=== PATIENT | female | born 1950 | race Caucasian/White ===

== ENCOUNTER 2019-12-25 10:22 | Outpatient (REF) | payer MEDICARE, SELFPAY ==
[2019-12-25 13:55] LABS: MANUAL DIFF FLAG NO
[2019-12-25 14:00] LABS: Basophils Percent Auto 0.5 % (0-2); Eosinophils Absolute Auto 0.3 X10*3/uL (0.0-0.4); Eosinophils Percent Auto 4.2 % (0-4); Hematocrit 40.4 % (37-47); Hemoglobin 13.1 g/dl (12.0-16.0); Imm Gran Abs Auto 0.03 X10*3/uL (0.00-0.03); Imm Gran Pct Auto 0.4 % (0.0-0.4); Lymphocytes Absolute Auto 2.2 X10*3/uL (1.2-4.9); Mean Corpuscular HGB Conc 32.4 g/dl (31.0-35.0); Mean Corpuscular Hemoglobin 26.6 pg (27.0-33.0); Mean Corpuscular Volume 82.1 fL (80-98); Monocytes Absolute Auto 0.6 X10*3/uL (0.1-1.2); Monocytes Percent Auto 7.3 % (2-11); Neutrophils Percent Auto 60.6 % (45-73); Platelet Count 256 X10*3/uL (160-400); Red Blood Count 4.92 X10*6/uL (4.20-5.50); Red Cell Distribution Width 13.8 % (11.0-16.0); White Blood Count 8.2 X10*3/uL (4.8-10.8)
[2019-12-25 14:18] LABS: Glucose Urine UA NEG (NEG); Leukocyte Esterase Urine 1+ (NEG); Nitrite Urine NEG (NEG); Specific Gravity - Urine 1.015 (1.005-1.025); Urine Blood 2+ (NEG); Urine Ketones NEG (NEG); Urine Protein NEG (NEG-TRACE)
[2019-12-25 14:20] LABS: Appearance Urine CLEAR; Color Urine YELLOW
[2019-12-25 14:30] LABS: Squamous Epithelial Cell Urine TRACE /LPF
[2019-12-25 14:36] LABS: Anion Gap 16 (12-20); Blood Urea Nitrogen 13 mg/dL (9-16); Carbon Dioxide 30 mmol/L (22-29); Chloride 100 mmol/L (96-108); Estimated Glomerular Filt Rate 59; Potassium 4.4 mmol/l (3.3-5.1); Sodium 142 mmol/L (135-145)
[2019-12-25 14:37] LABS: Alanine Aminotransferase 28 U/L (0-31); Albumin Level 4.3 g/dL (3.5-5.0); Alkaline Phosphatase 64 U/L (39-117); Aspartate Amino Transferase 25 U/L (5-31); Bilirubin Total 0.6 mg/dL (0.0-1.0); Calcium 9.7 mg/dL (8.4-10.2); Cholesterol 135 mg/dL; Glucose Fasting 104 mg/dL (60-99); HDL Cholesterol 28 mg/dL; LDL Cholesterol Calculated 68 mg/dl; Total Protein 7.2 g/dL (6.5-8.0); Triglycerides 199 mg/dL
[2019-12-25 14:46] LABS: TSH reflex Free T4 1.72 mIU/mL (0.32-4.0); Vitamin D 25-OH Total 63.3 ng/mL (>30)
[2019-12-25 15:12] LABS: Microalbum/Creatinine Ratio Ur 7.2 ug/mg cr
== END 2019-12-25 10:23 | disposition home or self-care (01) ==
LOC: HO.HMGCLDS 10:22
PROVIDERS: PCP Internal Medicine; Visit Provider Internal Medicine
DX: E11.22 Type 2 diabetes mellitus with diabetic chronic kidney disease (principal); I12.9 Hypertensive chronic kidney disease with stage 1 through stage 4 chronic kidney disease, or unspecified chronic kidney disease; N18.2 Chronic kidney disease, stage 2 (mild); E78.00 Pure hypercholesterolemia, unspecified; K21.9 Gastro-esophageal reflux disease without esophagitis; E66.3 Overweight
CPT/HCPCS: 36415; 80053; 80061; 81001; 82043; 82306; 84443; 85025; 87086

== ENCOUNTER 2020-05-20 10:42 | Outpatient (REF) | payer MEDICARE, SELFPAY ==
[2020-05-20 13:59] LABS: MANUAL DIFF FLAG NO
[2020-05-20 14:11] LABS: Basophils Percent Auto 0.4 % (0-2); Eosinophils Absolute Auto 0.2 X10*3/uL (0.0-0.4); Eosinophils Percent Auto 2.9 % (0-4); Hematocrit 41.6 % (37-47); Hemoglobin 13.5 g/dl (12.0-16.0); Imm Gran Abs Auto 0.02 X10*3/uL (0.00-0.03); Imm Gran Pct Auto 0.3 % (0.0-0.4); Lymphocytes Absolute Auto 2.1 X10*3/uL (1.2-4.9); Lymphocytes Percent Auto 27.7 % (20-40); Mean Corpuscular HGB Conc 32.5 g/dl (31.0-35.0); Mean Corpuscular Hemoglobin 26.3 pg (27.0-33.0); Mean Corpuscular Volume 81.1 fL (80-98); Mean Platelet Volume 9.9 fL (9.4-12.3); Monocytes Absolute Auto 0.7 X10*3/uL (0.1-1.2); Monocytes Percent Auto 9.8 % (2-11); Neutrophils Absolute Auto 4.5 X10*3/uL (2.0-8.3); Neutrophils Percent Auto 58.9 % (45-73); Platelet Count 260 X10*3/uL (160-400); Red Blood Count 5.13 X10*6/uL (4.20-5.50); Red Cell Distribution Width 14.5 % (11.0-16.0); White Blood Count 7.6 X10*3/uL (4.8-10.8)
[2020-05-20 14:22] LABS: Alanine Aminotransferase 28 U/L (0-31); Albumin Level 4.5 g/dL (3.5-5.0); Alkaline Phosphatase 62 U/L (39-117); Anion Gap 16 (12-20); Aspartate Amino Transferase 31 U/L (5-31); Bilirubin Total 0.6 mg/dL (0.0-1.0); Blood Urea Nitrogen 13 mg/dL (9-16); Calcium 10.1 mg/dL (8.4-10.2); Carbon Dioxide 28 mmol/L (22-29); Chloride 100 mmol/L (96-108); Cholesterol 135 mg/dL; Estimated Glomerular Filt Rate 59; Glucose Fasting 123 mg/dL (60-99); HDL Cholesterol 31 mg/dL; LDL Cholesterol Calculated 64 mg/dl; Sodium 140 mmol/L (135-145); Total Protein 7.5 g/dL (6.5-8.0); Triglycerides 201 mg/dL
[2020-05-20 14:43] LABS: Glucose Urine UA NEG (NEG); Leukocyte Esterase Urine NEG (NEG); Nitrite Urine NEG (NEG); PH 8.5 (5.0-8.0); Urine Blood NEG (NEG); Urine Ketones NEG (NEG); Urine Protein NEG (NEG-TRACE)
[2020-05-20 14:46] LABS: TSH reflex Free T4 1.22 uIU/mL (0.32-4.0); Vitamin D 25-OH Total 60.5 ng/mL (>30)
[2020-05-20 14:48] LABS: Appearance Urine CLEAR; Color Urine YELLOW
[2020-05-20 14:50] LABS: Creatinine Urine 169.24 mg/dL
== END 2020-05-20 10:43 | disposition home or self-care (01) ==
LOC: HO.LAB 10:42
PROVIDERS: PCP Internal Medicine; Visit Provider Internal Medicine
DX: I12.9 Hypertensive chronic kidney disease with stage 1 through stage 4 chronic kidney disease, or unspecified chronic kidney disease (principal); N18.2 Chronic kidney disease, stage 2 (mild); E11.22 Type 2 diabetes mellitus with diabetic chronic kidney disease; E78.00 Pure hypercholesterolemia, unspecified; E66.3 Overweight; E55.9 Vitamin D deficiency, unspecified; K21.9 Gastro-esophageal reflux disease without esophagitis
CPT/HCPCS: 36415; 80053; 80061; 81003; 82043; 82306; 84443; 85025

== ENCOUNTER 2020-06-14 10:32 | Outpatient (REF) | payer MEDICARE, SELFPAY ==
[2020-06-14 11:54] LABS: Glucose Urine UA NEG (NEG); Leukocyte Esterase Urine 2+ (NEG); Nitrite Urine NEG (NEG); PH 5.5 (5.0-8.0); UACC Culture Trigger YES; Urine Blood 1+ (NEG); Urine Ketones NEG (NEG); Urine Protein NEG (NEG-TRACE)
[2020-06-14 12:23] LABS: Appearance Urine HAZY; Color Urine YELLOW
[2020-06-14 12:48] LABS: Bacteria Urine 1+ /LPF; WBC Urine TNTC /HPF (0-4)
[2020-06-14 12:49] LABS: Creatinine Urine 23.38 mg/dL; Microalbum/Creatinine Ratio Ur 132.5 ug/mg cr
== END 2020-06-14 10:33 | disposition home or self-care (01) ==
LOC: HO.LAB 10:32
PROVIDERS: PCP Internal Medicine; Visit Provider Internal Medicine
DX: I12.9 Hypertensive chronic kidney disease with stage 1 through stage 4 chronic kidney disease, or unspecified chronic kidney disease (principal); N18.2 Chronic kidney disease, stage 2 (mild); E11.22 Type 2 diabetes mellitus with diabetic chronic kidney disease; R30.0 Dysuria
CPT/HCPCS: 81001; 81003; 82043; 87086; 87088; 87186

== ENCOUNTER 2020-09-10 09:13 | Outpatient (REF) | payer MEDICARE, SELFPAY ==
[2020-09-10 11:11] LABS: MANUAL DIFF FLAG NO
[2020-09-10 11:21] LABS: Basophils Percent Auto 0.4 % (0-2); Eosinophils Absolute Auto 0.3 X10*3/uL (0.0-0.4); Eosinophils Percent Auto 4.1 % (0-4); Hematocrit 39.8 % (37-47); Hemoglobin 12.9 g/dl (12.0-16.0); Imm Gran Abs Auto 0.02 X10*3/uL (0.00-0.03); Imm Gran Pct Auto 0.3 % (0.0-0.4); Lymphocytes Absolute Auto 1.5 X10*3/uL (1.2-4.9); Lymphocytes Percent Auto 21.7 % (20-40); Mean Corpuscular HGB Conc 32.4 g/dl (31.0-35.0); Mean Corpuscular Hemoglobin 26.4 pg (27.0-33.0); Mean Corpuscular Volume 81.4 fL (80-98); Mean Platelet Volume 9.8 fL (9.4-12.3); Monocytes Absolute Auto 0.5 X10*3/uL (0.1-1.2); Monocytes Percent Auto 6.9 % (2-11); Neutrophils Absolute Auto 4.7 X10*3/uL (2.0-8.3); Neutrophils Percent Auto 66.6 % (45-73); Platelet Count 224 X10*3/uL (160-400); Red Blood Count 4.89 X10*6/uL (4.20-5.50); Red Cell Distribution Width 14.2 % (11.0-16.0)
[2020-09-10 11:24] LABS: Glucose Urine UA NEG (NEG); Leukocyte Esterase Urine NEG (NEG); Nitrite Urine NEG (NEG); Specific Gravity - Urine 1.015 (1.005-1.025); Urine Blood NEG (NEG); Urine Ketones NEG (NEG); Urine Protein NEG (NEG-TRACE)
[2020-09-10 11:29] LABS: Estimated Average Glucose 143 mg/dL; Hemoglobin A1c % 6.6 %
[2020-09-10 11:32] LABS: Appearance Urine CLEAR; Color Urine YELLOW
[2020-09-10 11:52] LABS: Alanine Aminotransferase 22 U/L (0-31); Albumin Level 4.3 g/dL (3.5-5.0); Alkaline Phosphatase 64 U/L (39-117); Anion Gap 15 (12-20); Aspartate Amino Transferase 25 U/L (5-31); Bilirubin Total 0.7 mg/dL (0.0-1.0); Blood Urea Nitrogen 15 mg/dL (9-16); Carbon Dioxide 27 mmol/L (22-29); Chloride 102 mmol/L (96-108); Cholesterol 142 mg/dL; Estimated Glomerular Filt Rate 59; Glucose Fasting 92 mg/dL (60-99); HDL Cholesterol 27 mg/dL; LDL Cholesterol Calculated 81 mg/dl; Potassium 4.1 mmol/L (3.3-5.1); Sodium 140 mmol/L (135-145); Triglycerides 170 mg/dL
[2020-09-10 12:12] LABS: Erythrocyte Sedimentation Rate 11 MM/HR (0-20); TSH reflex Free T4 1.89 uIU/mL (0.32-4.0); Vitamin D 25-OH Total 70.4 ng/mL (>30)
== END 2020-09-10 09:14 | disposition home or self-care (01) ==
LOC: HO.HMGCLDS 09:13
PROVIDERS: PCP Internal Medicine; Visit Provider Internal Medicine
DX: I12.9 Hypertensive chronic kidney disease with stage 1 through stage 4 chronic kidney disease, or unspecified chronic kidney disease (principal); N18.2 Chronic kidney disease, stage 2 (mild); E11.22 Type 2 diabetes mellitus with diabetic chronic kidney disease; K21.9 Gastro-esophageal reflux disease without esophagitis; E66.3 Overweight; E78.00 Pure hypercholesterolemia, unspecified; M51.36 Other intervertebral disc degeneration, lumbar region; E55.9 Vitamin D deficiency, unspecified
CPT/HCPCS: 36415; 80053; 80061; 81003; 82306; 83036; 84443; 85025; 85652

== ENCOUNTER 2021-01-10 09:36 | Outpatient (REF) | payer MEDICARE, SELFPAY ==
[2021-01-10 11:22] LABS: MANUAL DIFF FLAG NO
[2021-01-10 11:56] LABS: Basophils Percent Auto 0.4 % (0-2); Eosinophils Absolute Auto 0.3 X10*3/uL (0.0-0.4); Eosinophils Percent Auto 3.9 % (0-4); Hematocrit 41.4 % (37.0-47.0); Hemoglobin 13.4 g/dl (12.0-16.0); Imm Gran Abs Auto 0.03 X10*3/uL (0.00-0.03); Imm Gran Pct Auto 0.4 % (0.0-0.4); Lymphocytes Absolute Auto 1.7 X10*3/uL (1.2-4.9); Lymphocytes Percent Auto 23.9 % (20-40); Mean Corpuscular HGB Conc 32.4 g/dl (31.0-35.0); Mean Corpuscular Hemoglobin 26.4 pg (27.0-33.0); Mean Corpuscular Volume 81.5 fL (80.0-98.0); Mean Platelet Volume 9.9 fL (9.4-12.3); Monocytes Absolute Auto 0.5 X10*3/uL (0.1-1.2); Monocytes Percent Auto 6.8 % (2-11); Neutrophils Absolute Auto 4.7 x10*3/uL (2.0-8.3); Neutrophils Percent Auto 64.6 % (45-73); Platelet Count 247 X10*3/uL (160-400); Red Blood Count 5.08 X10*6/uL (4.20-5.50); Red Cell Distribution Width 13.7 % (11.0-16.0); White Blood Count 7.2 X10*3/uL (4.8-10.8)
[2021-01-10 12:01] LABS: Appearance Urine CLEAR; Color Urine YELLOW; Glucose Urine UA NEG (NEG); Leukocyte Esterase Urine NEG (NEG); Nitrite Urine NEG (NEG); Urine Blood NEG (NEG); Urine Ketones NEG (NEG); Urine Protein NEG (NEG-TRACE)
[2021-01-10 12:19] LABS: Alanine Aminotransferase 28 U/L (0-31); Albumin Level 4.3 g/dL (3.5-5.0); Alkaline Phosphatase 59 U/L (39-117); Anion Gap 14 (12-20); Aspartate Amino Transferase 23 U/L (5-31); Bilirubin Total 0.6 mg/dL (0.0-1.0); Blood Urea Nitrogen 14 mg/dL (9-16); Calcium 10.2 mg/dL (8.4-10.2); Carbon Dioxide 28 mmol/L (22-29); Chloride 102 mmol/L (96-108); Cholesterol 148 mg/dL; Estimated Glomerular Filt Rate 59; Glucose Fasting 163 mg/dL (60-99); HDL Cholesterol 28 mg/dL; LDL Cholesterol Calculated 79 mg/dl; Potassium 4.5 mmol/L (3.3-5.1); Sodium 139 mmol/L (135-145); Triglycerides 208 mg/dL
[2021-01-10 12:22] LABS: TSH reflex Free T4 1.21 uIU/mL (0.32-4.0); Vitamin D 25-OH Total 64.8 ng/mL (>30)
[2021-01-10 12:32] LABS: Creatinine Urine 187.99 mg/dL; Microalbum/Creatinine Ratio Ur 8.5 ug/mg cr
[2021-01-10 12:54] LABS: Estimated Average Glucose 160 mg/dL; Hemoglobin A1c % 7.2 %
== END 2021-01-10 09:37 | disposition home or self-care (01) ==
LOC: HO.HMGCLDS 09:36
PROVIDERS: Visit Provider Internal Medicine
DX: E78.00 Pure hypercholesterolemia, unspecified (principal); E11.9 Type 2 diabetes mellitus without complications; E55.9 Vitamin D deficiency, unspecified; I10 Essential (primary) hypertension
CPT/HCPCS: 36415; 80053; 80061; 81003; 82043; 82306; 83036; 84443; 85025

== ENCOUNTER 2021-05-19 10:13 | Outpatient (REF) | payer MEDICARE, SELFPAY ==
[2021-05-19 11:21] LABS: MANUAL DIFF FLAG NO
[2021-05-19 11:34] LABS: Appearance Urine CLEAR; Color Urine YELLOW; Glucose Urine UA NEG (NEG); Leukocyte Esterase Urine NEG (NEG); Nitrite Urine NEG (NEG); PH 8.5 (5.0-8.0); Specific Gravity - Urine 1.015 (1.005-1.025); Urine Blood NEG (NEG); Urine Ketones NEG (NEG); Urine Protein NEG (NEG-TRACE)
[2021-05-19 11:42] LABS: Estimated Average Glucose 146 mg/dL; Hemoglobin A1c % 6.7 %
[2021-05-19 11:50] LABS: Alanine Aminotransferase 21 U/L (0-31); Albumin Level 4.3 g/dL (3.5-5.0); Alkaline Phosphatase 55 U/L (39-117); Anion Gap 13 (12-20); Aspartate Amino Transferase 22 U/L (5-31); Bilirubin Total 0.8 mg/dL (0.0-1.0); Blood Urea Nitrogen 14 mg/dL (9-16); Calcium 10.1 mg/dL (8.4-10.2); Carbon Dioxide 28 mmol/L (22-29); Chloride 102 mmol/L (96-108); Cholesterol 151 mg/dL; Estimated Glomerular Filt Rate > 60; Glucose Fasting 114 mg/dL (60-99); HDL Cholesterol 28 mg/dL; LDL Cholesterol Calculated 78 mg/dl; Potassium 4.4 mmol/L (3.3-5.1); Sodium 139 mmol/L (135-145); Total Protein 7.2 g/dL (6.5-8.0); Triglycerides 225 mg/dL
[2021-05-19 11:54] LABS: Basophils Percent Auto 0.6 % (0-2); Eosinophils Absolute Auto 0.2 X10*3/uL (0.0-0.4); Eosinophils Percent Auto 3.3 % (0-4); Hematocrit 40.3 % (37.0-47.0); Hemoglobin 13.2 g/dl (12.0-16.0); Imm Gran Abs Auto 0.02 X10*3/uL (0.00-0.03); Imm Gran Pct Auto 0.3 % (0.0-0.4); Lymphocytes Absolute Auto 1.9 X10*3/uL (1.2-4.9); Lymphocytes Percent Auto 26.5 % (20-40); Mean Corpuscular HGB Conc 32.8 g/dl (31.0-35.0); Mean Corpuscular Hemoglobin 26.5 pg (27.0-33.0); Mean Corpuscular Volume 80.8 fL (80.0-98.0); Mean Platelet Volume 9.7 fL (9.4-12.3); Monocytes Absolute Auto 0.5 X10*3/uL (0.1-1.2); Monocytes Percent Auto 6.4 % (2-11); Neutrophils Absolute Auto 4.4 x10*3/uL (2.0-8.3); Neutrophils Percent Auto 62.9 % (45-73); Platelet Count 254 X10*3/uL (160-400); Red Blood Count 4.99 X10*6/uL (4.20-5.50)
[2021-05-19 12:12] LABS: TSH reflex Free T4 1.21 uIU/mL (0.32-4.0); Vitamin D 25-OH Total 63.6 ng/mL (>30)
[2021-05-19 12:46] LABS: Creatinine Urine 134.63 mg/dL; Microalbum/Creatinine Ratio Ur 5.1 ug/mg cr
== END 2021-05-19 10:14 | disposition home or self-care (01) ==
LOC: HO.HMGCLDS 10:13
PROVIDERS: PCP Internal Medicine; Visit Provider Internal Medicine
DX: E11.9 Type 2 diabetes mellitus without complications (principal); E78.00 Pure hypercholesterolemia, unspecified; I10 Essential (primary) hypertension; E55.9 Vitamin D deficiency, unspecified
CPT/HCPCS: 36415; 80053; 80061; 81003; 82043; 82306; 83036; 84443; 85025

== ENCOUNTER 2021-09-29 08:39 | Outpatient (REF) | payer MEDICARE, SELFPAY ==
[2021-09-29 11:26] LABS: MANUAL DIFF FLAG NO
[2021-09-29 11:33] LABS: Basophils Percent Auto 0.4 % (0-2); Eosinophils Absolute Auto 0.2 X10*3/uL (0.0-0.4); Eosinophils Percent Auto 2.2 % (0-4); Hematocrit 40.3 % (37.0-47.0); Hemoglobin 13.4 g/dl (12.0-16.0); Imm Gran Abs Auto 0.02 X10*3/uL (0.00-0.03); Imm Gran Pct Auto 0.3 % (0.0-0.4); Lymphocytes Absolute Auto 1.7 X10*3/uL (1.2-4.9); Lymphocytes Percent Auto 22.8 % (20-40); Mean Corpuscular HGB Conc 33.3 g/dl (31.0-35.0); Mean Corpuscular Hemoglobin 27.2 pg (27.0-33.0); Mean Corpuscular Volume 81.7 fL (80.0-98.0); Mean Platelet Volume 9.5 fL (9.4-12.3); Monocytes Absolute Auto 0.5 X10*3/uL (0.1-1.2); Neutrophils Absolute Auto 4.9 x10*3/uL (2.0-8.3); Neutrophils Percent Auto 67.3 % (45-73); Platelet Count 313 X10*3/uL (160-400); Red Blood Count 4.93 X10*6/uL (4.20-5.50); Red Cell Distribution Width 13.7 % (11.0-16.0); White Blood Count 7.3 X10*3/uL (4.8-10.8)
[2021-09-29 11:37] LABS: Estimated Average Glucose 123 mg/dL; Hemoglobin A1C 144.9691 umol/L; Hemoglobin A1c % 5.9 %
[2021-09-29 12:00] LABS: Alanine Aminotransferase 18 U/L (0-31); Albumin Level 4.3 g/dL (3.5-5.0); Alkaline Phosphatase 77 U/L (39-117); Anion Gap 18 (12-20); Aspartate Amino Transferase 19 U/L (5-31); Bilirubin Total 0.7 mg/dL (0.0-1.0); Blood Urea Nitrogen 14 mg/dL (9-16); Calcium 10.1 mg/dL (8.4-10.2); Carbon Dioxide 26 mmol/L (22-29); Chloride 102 mmol/L (96-108); Cholesterol 149 mg/dL; Estimated Glomerular Filt Rate 58; Glucose Fasting 107 mg/dL (60-99); HDL Cholesterol 29 mg/dL; LDL Cholesterol Calculated 84 mg/dl; Potassium 4.7 mmol/L (3.3-5.1); Sodium 141 mmol/L (135-145); Total Protein 7.2 g/dL (6.5-8.0); Triglycerides 182 mg/dL
[2021-09-29 12:01] LABS: TSH reflex Free T4 2.05 uIU/mL (0.32-4.0); Vitamin D 25-OH Total 67.2 ng/mL (>30)
[2021-09-29 12:16] LABS: Appearance Urine Clear; Color Urine Dark Yellow; Glucose Urine UA Negative (Negative); Leukocyte Esterase Urine Trace (Negative); Nitrite Urine Negative (Negative); PH 8.5 (5.0-8.0); Urine Blood Negative (Negative); Urine Ketones Trace mg/dL (Negative); Urine Protein Trace mg/dL (Neg-Trace)
[2021-09-29 12:20] LABS: Bacteria Urine None Seen (None Seen); Hyaline Casts Urine 0-2 /LPF (0-2); RBC Urine 0-2 /HPF (0-2); Squamous Epithelial Cell Urine 0-2 /HPF (0-2); WBC Urine 0-5 /HPF (0-5)
[2021-09-29 12:31] LABS: Creatinine Urine 231.84 mg/dL; Microalbum/Creatinine Ratio Ur 6.9 ug/mg cr
== END 2021-09-29 08:40 | disposition home or self-care (01) ==
LOC: HO.HMGCLDS 08:39
PROVIDERS: PCP Internal Medicine; Visit Provider Internal Medicine
DX: I10 Essential (primary) hypertension (principal); E55.9 Vitamin D deficiency, unspecified; E78.00 Pure hypercholesterolemia, unspecified; E11.9 Type 2 diabetes mellitus without complications
CPT/HCPCS: 36415; 80053; 80061; 81001; 82043; 82306; 83036; 84443; 85025

== ENCOUNTER 2021-10-05 09:28 | Emergency (ER) | payer MEDICARE, SELFPAY ==
--- NOTE | ~2021-10-05 | XR_ITS ---
EXAMINATION: XR CHEST CLINICAL INFORMATION: Bradycardia. COMPARISON: No recent relevant comparison. TECHNIQUE: Frontal view of the chest was obtained. FINDINGS: Lungs are well-inflated and clear. No pulmonary edema or pleural effusion. Cardiac silhouette is normal in size. The hilar contours are normal. There is atherosclerotic calcification of the aortic arch. Mild dextrocurvature of the degenerated thoracic spine. XR/XR chest 1V IMPRESSION: No acute pulmonary disease.
--- NOTE | ~2021-10-05 | CT_ITS ---
EXAMINATION: CT ANGIOGRAM OF THE CHEST WITH AND WITHOUT CONTRAST (CT PULMONARY ANGIOGRAM FOR PE) CLINICAL INFORMATION: Dyspnea on exertion. COMPARISON: None TECHNIQUE: Prior to contrast administration, noncontrast localization images were obtained. Subsequently, multidetector volumetric imaging was performed from the thoracic inlet to below the diaphragms following the administration of 80 mL Omnipaque 350 intravenous contrast. No contrast reaction reported Sagittal, coronal, and MIP oblique sagittal reformatted images were obtained on the CT workstation, uploaded to PACS, and reviewed. This CT examination was performed using dose optimization techniques as appropriate, variously including the following: *Automated exposure control *Adjustment of mA and/or kV according to patient size (this includes techniques or standardized protocols for targeted exams where dose is matched to indication/reason for exam; i.e. extremities or head) *Use of iterative reconstruction technique Total exam dose-length product 650 mGy-cm FINDINGS: QUALITY OF STUDY/CONTRAST BOLUS: Satisfactory. PULMONARY ARTERIES: No central or segmental pulmonary emboli. THORACIC AORTA: No aneurysm or dissection. Mild atherosclerosis. LUNGS/PLEURA/AIRWAYS: No focal consolidation, nodules or masses. Mild dependent atelectasis in the lower lobes. No pleural effusions. The airways are patent. MEDIASTINUM: The visualized thyroid gland is unremarkable. Normal heart size. No pericardial effusion. No hilar or mediastinal lymphadenopathy. No evidence of septal bowing or right heart strain. CHEST WALL/AXILLA: No axillary or internal mammary lymphadenopathy. OSSEOUS STRUCTURES: Increased thoracic kyphosis and mild to moderate multilevel degenerative changes. UPPER ABDOMEN: Gallstones. No surrounding abnormality. Small exophytic renal cyst off of the upper pole the right kidney. No reflux of contrast into the hepatic veins to suggest elevated right heart pressures. CT/CT angio chest PE protocol IMPRESSION: 1. No evidence for pulmonary embolism. 2. No acute cardiopulmonary process. 3. Cholelithiasis without evidence for acute cholecystitis. 4. Small cyst in the upper pole the right kidney demonstrate benign features. VTE: Negative.
[2021-10-05 09:32] VITALS: BP 177/88; PULSE 100; RESP 19; TEMP 36.6; O2SAT 100; BMI 25.1
--- NOTE | 2021-10-05 09:36 | ECG_ITS ---
Test Reason : sob Blood Pressure : / mmHG Vent. Rate : 079 BPM Atrial Rate : 079 BPM P-R Int : 166 ms QRS Dur : 084 ms QT Int : 378 ms P-R-T Axes : 053 002 013 degrees QTc Int : 433 ms Sinus rhythm with frequent Premature ventricular complexes Low voltage QRS Borderline ECG When compared with ECG of 05-MAY-2010 07:04, Premature ventricular complexes are now Present Referred By: Generic ED Physician Electronically Signed By:JAMES HERRING
[2021-10-05 09:59] LABS: MANUAL DIFF FLAG NO
[2021-10-05 10:03] LABS: Basophils Absolute Auto 0.1 X10*3/uL (0.0-0.2); Basophils Percent Auto 0.9 % (0-2); Eosinophils Absolute Auto 0.2 X10*3/uL (0.0-0.4); Eosinophils Percent Auto 3.1 % (0-4); Hematocrit 39.7 % (37.0-47.0); Hemoglobin 13.3 g/dl (12.0-16.0); Imm Gran Abs Auto 0.01 X10*3/uL (0.00-0.03); Imm Gran Pct Auto 0.2 % (0.0-0.4); Lymphocytes Absolute Auto 1.6 X10*3/uL (1.2-4.9); Lymphocytes Percent Auto 27.2 % (20-40); Mean Corpuscular HGB Conc 33.5 g/dl (31.0-35.0); Mean Corpuscular Hemoglobin 26.9 pg (27.0-33.0); Mean Corpuscular Volume 80.2 fL (80.0-98.0); Mean Platelet Volume 9.4 fL (9.4-12.3); Monocytes Absolute Auto 0.5 X10*3/uL (0.1-1.2); Monocytes Percent Auto 8.3 % (2-11); Neutrophils Absolute Auto 3.6 x10*3/uL (2.0-8.3); Neutrophils Percent Auto 60.3 % (45-73); Platelet Count 295 X10*3/uL (160-400); Red Blood Count 4.95 X10*6/uL (4.20-5.50); Red Cell Distribution Width 13.4 % (11.0-16.0); White Blood Count 5.9 X10*3/uL (4.8-10.8)
[2021-10-05 10:05] LABS: Appearance Urine Clear; Color Urine Yellow; Glucose Urine UA Negative (Negative); Leukocyte Esterase Urine Trace (Negative); Nitrite Urine Negative (Negative); PH >= 9.0 (5.0-8.0); Urine Blood Large (3+) (Negative); Urine Ketones Negative (Negative); Urine Protein Negative (Neg-Trace)
[2021-10-05 10:10] LABS: Bacteria Urine None Seen (None Seen); Hyaline Casts Urine 0-2 /LPF (0-2); RBC Urine >20 /HPF (0-2); Squamous Epithelial Cell Urine 0-2 /HPF (0-2); WBC Urine 0-5 /HPF (0-5)
[2021-10-05 10:15] LABS: Anion Gap 16 (12-20); Blood Urea Nitrogen 12 mg/dL (9-16); Calcium 9.8 mg/dL (8.4-10.2); Carbon Dioxide 24 mmol/L (22-29); Chloride 103 mmol/L (96-108); Creatinine Clr Calc Pharmacy 61.7; Estimated Glomerular Filt Rate > 60; Glucose Random 157 mg/dL (60-115); Potassium 3.9 mmol/L (3.3-5.1); Sodium 139 mmol/L (135-145)
[2021-10-05 10:18] LABS: COVID-19 Test Negative (Negative)
[2021-10-05 10:21] LABS: B Type Natriuretic Peptide 55 pg/mL (<100); Troponin-I High Sensitivity < 3.5 ng/L (<3.5-17.0)
[2021-10-05 21:03] VITALS: BP 137/75; PULSE 82; RESP 14; TEMP 36.9; O2SAT 100
--- NOTE | 2021-10-05 21:39 | ED.URI ---
HPI - URI/Sore Throat General Chief Complaint: Upper Respiratory Symptoms Stated Complaint: sob Time Seen by Provider: 10/05/21 21:04 Source: patient Mode of arrival: ambulatory Limitations: no limitations History of Present Illness HPI Narrative: This is a 71-year-old female with a history of insulin-dependent diabetes, high cholesterol, hypertension who presents with 3-4 weeks of dyspnea with exertion. Patient denies any associated cough, fever, chest pain, leg swelling or leg pain. Patient has no history of lung disease. She has no smoking history. She denies any recent travel or sick contact. She has no known family history of coronary artery disease or PE or DVT. Patient tells me that since the end of July she has lost approximately 40 lb. She had been quite busy taking care for who is ill and tells me she was more active and not eating quite as much so she was not believe that was unintentional. She has a follow-up appointment with her primary care doctor this Sunday Related Data Home Medications Medication Instructions Recorded Confirmed cholecalciferol (vitamin D3) 50 50 mcg PO DAILY 01/02/20 05/20/21 mcg (2,000 unit) capsule ketoconazole 2 % shampoo topical 01/02/20 05/20/21 lorazepam 0.5 mg tablet 0.5 mg PO BID PRN 01/02/20 05/20/21 metoprolol succinate 50 mg 50 mg PO DAILY 01/02/20 05/20/21 tablet,extended release 24 hr mometasone 0.1 % topical cream applic topical DAILY 01/02/20 05/20/21 Previous Rx's Medication Instructions Recorded amlodipine 5 mg-benazepril 20 mg 1 cap PO DAILY #90 caps 12/27/20 capsule lovastatin 40 mg tablet 40 mg PO DAILY #90 tabs 12/27/20 metformin 500 mg tablet 1,000 mg PO BID #360 tabs 12/27/20 spironolactone 25 1 tab PO DAILY #90 tabs 12/27/20 mg-hydrochlorothiazide 25 mg tablet omeprazole 20 mg capsule,delayed 20 mg PO QAM #90 caps 04/11/21 release pen needle, diabetic 32 gauge x #90 ea 04/11/21 (BD Ultra-Fine Wanda Pen Needle) insulin glargine 100 unit/mL (3 52 unit (0.52 mL) subcut QAM 90 05/04/21 mL) subcutaneous pen (Lantus days #18 mL Solostar U-100 Insulin) oxycodone-acetaminophen 5 mg-325 1 tab PO Q8H PRN severe pain 7 08/29/21 mg tablet days #21 tabs blood sugar diagnostic 1 strip miscellaneous BID #200 ea 09/29/21 Allergies Allergy/AdvReac Type Severity Reaction Status Date / Time fluticasone [From FLONASE] AdvReac Intermediate NAUSEA Verified 05/20/21 13:54 Review of Systems Review of Systems: Yes all other systems are reviewed and are negative Constitutional: Constitutional: Reports no additional constitutional complaints, Denies body ache(s), Denies chills, Denies fever(s), Denies headache(s) and Denies weakness Eyes: Eyes: Reports no additional eye complaints and Denies change in vision ENT: Reports system reviewed and no additional complaints, except as documented, Denies dizziness, Denies headache(s), Denies nasal congestion, Denies nasal discharge and Denies neck pain Cardiovascular: Cardiovascular: Reports no additional cardiovascular complaints, Denies chest pain, Denies leg edema, Denies dyspnea and Reports dyspnea on exertion Respiratory: Respiratory: Reports no additional respiratory complaints, Denies cough, Denies dyspnea and Reports dyspnea on exertion Gastrointestinal: Gastrointestinal: Reports no additional gastrointestinal complaints, Denies abdominal pain, Denies diarrhea, Denies nausea and Denies vomiting Genitourinary: Genitourinary: Reports no additional female genitourinary complaints and Denies urinary incontinence Musculoskeletal: Musculoskeletal: Reports no additional musculoskeletal complaints, Denies back pain, Denies arthralgias, Denies joint swelling, Denies neck pain, Denies numbness and Denies tingling Integumentary/Breasts: Skin/Breast: Reports system reviewed and no additional complaints, except as docu and Denies rash Neurologic: Reports system reviewed and no additional complaints, except as documented, Denies Abnormal speech present, Denies dizziness, Denies headache(s), Denies numbness, Denies tingling and Denies weakness PMFSH Past Medical History Attestation statement: The following information was validated with the patient. Source: old records reviewed and nursing notes reviewed Medical History Benign essential hypertension Chronic kidney disease (CKD), stage II (mild) GERD without esophagitis Lumbar degenerative disc disease Overweight (BMI 25.0-29.9) Pure hypercholesterolemia Seborrheic dermatitis of scalp Type 2 diabetes mellitus with diabetic chronic kidney disease Vitamin D deficiency Surgical History History of colonoscopy History of hemorrhoidectomy History of hysteroscopy (~11/2005) History of tonsillectomy Family History Family History Mother Dementia Emphysema lung Father Emphysema lung Other Family history non-contributory Social History Social History Housing: House Alcohol intake: current Alcohol intake frequency: holidays/special occasions only Alcohol type: wine Patient Tobacco Use Status: Never used Tobacco e-Cigarette/Vaping Use: Never Used Second Hand Smoke Exposure: Yes Advance Directives: No Advance Directives Information Provided: No service: No Current occupational status: retired Cognitive needs: No Hearing needs: No Vision needs: Yes (wear glasses) Physical Exam Vital Signs: Vital Signs: Last Vital Signs Temp 97.9 F 10/05/21 23:33 Pulse 89 10/05/21 23:33 Resp 16 10/05/21 23:33 BP 129/62 10/05/21 23:33 Pulse Ox 98 10/05/21 23:33 O2 Del Method 10/05/21 23:33 BMI result Body Mass Index 25.1 Const: General: cooperative, healthy appearing, comfortable and no acute distress Orientation/consciousness: patient oriented x3 Limitations: no limitations HEENT: Head: Yes normal to inspection Ears: hearing grossly normal bilaterally General nose exam: Normal external nose present Face and sinus: Yes normal facial exam Mouth: Normal oral and palatal mucosa present Throat: Yes posterior oropharynx normal Eyes: General: appearance normal, both eyes and all related structures Pupils: Equal, round and reactive pupils present Neck: Neck: Yes normal visual inspection Chest: Chest palpation & inspection: normal inspection of the chest Resp: Effort & Inspection: normal respiratory effort Auscultation: clear to auscultation bilaterally Cardio: Rate: regular rate Rhythm: regular rhythm Peripheral pulses: Peripheral pulses 2+ throughout GI: Inspection: Yes normal to inspection Palpation (GI): Soft to palpation and nontender Auscultation: normal bowel sounds Back/Spine/Pelvis: Thoracic/Lumbar Spine: thoracic and lumbar spine normal to inspection Skin: General skin exam: no rashes or lesions noted Neuro: General: patient oriented x3, no focal motor deficits and normal sensation to monofilament Cranial nerves: Yes Equal, round and reactive pupils present Cognition (Neuro): normal cognition Speech: No Abnormal speech present Gait exam (Neuro): Normal gait present Motor exam (neuro): 5/5 motor strength present throughout Extrem: General: Yes normal to inspection, Yes no pedal edema and Yes no calf tenderness Course Course Course Narrative: Troponin x2 are unchanged. EKG shows no new changes when compared to EKG from 2011. A CTA was done which shows no pulmonary embolism. The patient ambulated in the emergency room with a pulse oximeter greater than 98%. I discussed the findings with the patient. I recommend she follow up outpatient with her primary care doctor on Sunday as scheduled. She should return if she has any associated chest pain, diaphoresis, nausea, vomiting, dizziness. this case was discussed with Dr Jain who agrees with plan of care MDM - URI/Sore Throat MDM Narrative Medical decision making narrative: 71-year-old female here with 4 weeks of dyspnea with exertion and a 40 lb weight loss x 8 weeks Vitals are stable No chest pain, leg swelling leg pain, fevers, cough. Will check labs, EKG, chest x-ray, COVID screen Consider ACS, PE, pneumonia, malignancy Medical Records Attestation: I reviewed the patient's medical records. Lab Data Attestation: I reviewed the patient's lab results. Result diagrams: 10/05/21 09:51 10/05/21 09:51 Labs: Lab Results 10/05/21 10/05/21 10/05/21 Range/Units 09:51 09:51 09:51 WBC 5.9 (4.8-10.8) X10*3/uL RBC 4.95 (4.20-5.50) X10*6/uL Hgb 13.3 (12.0-16.0) g/dl Hct 39.7 (37.0-47.0) % MCV 80.2 (80.0-98.0) fL MCH 26.9 L (27.0-33.0) pg MCHC 33.5 (31.0-35.0) g/dl RDW 13.4 (11.0-16.0) % Plt Count 295 (160-400) X10*3/uL MPV 9.4 (9.4-12.3) fL Immature Gran % (Auto) 0.2 (0.0-0.4) % Neut % (Auto) 60.3 (45-73) % Lymph % (Auto) 27.2 (20-40) % Grand % (Auto) 8.3 (2-11) % Eos % (Auto) 3.1 (0-4) % Baso % (Auto) 0.9 (0-2) % Lymph # (Auto) 1.6 (1.2-4.9) X10*3/uL Grand # (Auto) 0.5 (0.1-1.2) X10*3/uL Eos # (Auto) 0.2 (0.0-0.4) X10*3/uL Baso # (Auto) 0.1 (0.0-0.2) X10*3/uL Abs Immat Gran (auto) 0.01 (0.00-0.03) X10*3/uL Absolute Neuts (auto) 3.6 (2.0-8.3) x10*3/uL Absolute Nucleated RBC 0.000 (0.0-0.012) X10*3/uL Nucleated RBC % (auto) 0.0 (0.0-0.2) /100WBC PT (10.0-13.1) SEC INR (0.9-1.1) Sodium 139 (135-145) mmol/L Potassium 3.9 (3.3-5.1) mmol/L Chloride 103 (96-108) mmol/L Carbon Dioxide 24 (22-29) mmol/L Anion Gap 16 (12-20) BUN 12 (9-16) mg/dL Creatinine 0.92 (0.5-1.4) mg/dL Estim Creat Clear Calc 61.7 Estimated GFR > 60 Random Glucose 157 H (60-115) mg/dL Calcium 9.8 (8.4-10.2) mg/dL Total Bilirubin 0.7 (0.0-1.0) mg/dL Direct Bilirubin 0.3 (0.0-0.5) mg/dL AST 20 (5-31) U/L ALT 16 (0-31) U/L Alkaline Phosphatase 70 (39-117) U/L Troponin I High Sens < 3.5 (<3.5-17.0) ng/L B-Natriuretic Peptide 55 (<100) pg/mL Total Protein 7.2 (6.5-8.0) g/dL Albumin 4.4 (3.5-5.0) g/dL Urine Color Urine Appearance Urine pH (5.0-8.0) Ur Specific Triplett (1.005-1.025) Urine Protein (Neg-Trace) mg/dL Urine Glucose (UA) (Negative) mg/dL Urine Ketones (Negative) mg/dL Urine Blood (Negative) Urine Nitrite (Negative) Ur Leukocyte Esterase (Negative) Urine RBC (0-2) /HPF Urine WBC (0-5) /HPF Ur Squamous Epith Cells (0-2) /HPF Urine Bacteria (None Seen) Hyaline Casts (0-2) /LPF COVID-19 ([facility]BY) (Negative) COVID-19 Clin Com 10/05/21 10/05/21 10/05/21 Range/Units 09:51 09:51 21:48 WBC (4.8-10.8) X10*3/uL RBC (4.20-5.50) X10*6/uL Hgb (12.0-16.0) g/dl Hct (37.0-47.0) % MCV (80.0-98.0) fL MCH (27.0-33.0) pg MCHC (31.0-35.0) g/dl RDW (11.0-16.0) % Plt Count (160-400) X10*3/uL MPV (9.4-12.3) fL Immature Gran % (Auto) (0.0-0.4) % Neut % (Auto) (45-73) % Lymph % (Auto) (20-40) % Grand % (Auto) (2-11) % Eos % (Auto) (0-4) % Baso % (Auto) (0-2) % Lymph # (Auto) (1.2-4.9) X10*3/uL Grand # (Auto) (0.1-1.2) X10*3/uL Eos # (Auto) (0.0-0.4) X10*3/uL Baso # (Auto) (0.0-0.2) X10*3/uL Abs Immat Gran (auto) (0.00-0.03) X10*3/uL Absolute Neuts (auto) (2.0-8.3) x10*3/uL Absolute Nucleated RBC (0.0-0.012) X10*3/uL Nucleated RBC % (auto) (0.0-0.2) /100WBC PT 11.8 (10.0-13.1) SEC INR 1.0 (0.9-1.1) Sodium (135-145) mmol/L Potassium (3.3-5.1) mmol/L Chloride (96-108) mmol/L Carbon Dioxide (22-29) mmol/L Anion Gap (12-20) BUN (9-16) mg/dL Creatinine (0.5-1.4) mg/dL Estim Creat Clear Calc Estimated GFR Random Glucose (60-115) mg/dL Calcium (8.4-10.2) mg/dL Total Bilirubin (0.0-1.0) mg/dL Direct Bilirubin (0.0-0.5) mg/dL AST (5-31) U/L ALT (0-31) U/L Alkaline Phosphatase (39-117) U/L Troponin I High Sens (<3.5-17.0) ng/L B-Natriuretic Peptide (<100) pg/mL Total Protein (6.5-8.0) g/dL Albumin (3.5-5.0) g/dL Urine Color Yellow Urine Appearance Clear Urine pH >= 9.0 H (5.0-8.0) Ur Specific Triplett 1.010 (1.005-1.025) Urine Protein Negative (Neg-Trace) mg/dL Urine Glucose (UA) Negative (Negative) mg/dL Urine Ketones Negative (Negative) mg/dL Urine Blood Large (3+) H (Negative) Urine Nitrite Negative (Negative) Ur Leukocyte Esterase Trace H (Negative) Urine RBC >20 H (0-2) /HPF Urine WBC 0-5 (0-5) /HPF Ur Squamous Epith Cells 0-2 (0-2) /HPF Urine Bacteria None Seen (None Seen) Hyaline Casts 0-2 (0-2) /LPF COVID-19 (LIBBY) Negative (Negative) COVID-19 Clin Com See Note 10/05/21 Range/Units 21:48 WBC (4.8-10.8) X10*3/uL RBC (4.20-5.50) X10*6/uL Hgb (12.0-16.0) g/dl Hct (37.0-47.0) % MCV (80.0-98.0) fL MCH (27.0-33.0) pg MCHC (31.0-35.0) g/dl RDW (11.0-16.0) % Plt Count (160-400) X10*3/uL MPV (9.4-12.3) fL Immature Gran % (Auto) (0.0-0.4) % Neut % (Auto) (45-73) % Lymph % (Auto) (20-40) % Grand % (Auto) (2-11) % Eos % (Auto) (0-4) % Baso % (Auto) (0-2) % Lymph # (Auto) (1.2-4.9) X10*3/uL Grand # (Auto) (0.1-1.2) X10*3/uL Eos # (Auto) (0.0-0.4) X10*3/uL Baso # (Auto) (0.0-0.2) X10*3/uL Abs Immat Gran (auto) (0.00-0.03) X10*3/uL Absolute Neuts (auto) (2.0-8.3) x10*3/uL Absolute Nucleated RBC (0.0-0.012) X10*3/uL Nucleated RBC % (auto) (0.0-0.2) /100WBC PT (10.0-13.1) SEC INR (0.9-1.1) Sodium (135-145) mmol/L Potassium (3.3-5.1) mmol/L Chloride (96-108) mmol/L Carbon Dioxide (22-29) mmol/L Anion Gap (12-20) BUN (9-16) mg/dL Creatinine (0.5-1.4) mg/dL Estim Creat Clear Calc Estimated GFR Random Glucose (60-115) mg/dL Calcium (8.4-10.2) mg/dL Total Bilirubin (0.0-1.0) mg/dL Direct Bilirubin (0.0-0.5) mg/dL AST (5-31) U/L ALT (0-31) U/L Alkaline Phosphatase (39-117) U/L Troponin I High Sens < 3.5 (<3.5-17.0) ng/L B-Natriuretic Peptide (<100) pg/mL Total Protein (6.5-8.0) g/dL Albumin (3.5-5.0) g/dL Urine Color Urine Appearance Urine pH (5.0-8.0) Ur Specific Triplett (1.005-1.025) Urine Protein (Neg-Trace) mg/dL Urine Glucose (UA) (Negative) mg/dL Urine Ketones (Negative) mg/dL Urine Blood (Negative) Urine Nitrite (Negative) Ur Leukocyte Esterase (Negative) Urine RBC (0-2) /HPF Urine WBC (0-5) /HPF Ur Squamous Epith Cells (0-2) /HPF Urine Bacteria (None Seen) Hyaline Casts (0-2) /LPF COVID-19 ([facility]BY) (Negative) COVID-19 Clin Com Imaging Data Chest x-ray: Attestation: I personally reviewed and interpreted this imaging study as follows: Radiologist's impression: [place] [id number] XRay Report Signed Patient: Magali Garcia MR#: [id number] : 1950 Acct:[id number] Age/Sex: 71 / F ADM Date: 10/05/21 Loc: HO.ED Attending Dr: Ordering Physician: Generic ED Physician Date of Service: 10/05/21 Procedure(s): XR chest 1V Accession Number(s): [id number] cc: Generic ED Physician~ EXAMINATION: XR CHEST CLINICAL INFORMATION: Bradycardia. COMPARISON: No recent relevant comparison. TECHNIQUE: Frontal view of the chest was obtained. FINDINGS: Lungs are well-inflated and clear. No pulmonary edema or pleural effusion. Cardiac silhouette is normal in size. The hilar contours are normal. There is atherosclerotic calcification of the aortic arch. Mild dextrocurvature of the degenerated thoracic spine. XR/XR chest 1V IMPRESSION: No acute pulmonary disease. ? CT scan - chest: Attestation: I personally reviewed and interpreted this imaging study as follows: Radiologist's impression: FINDINGS: QUALITY OF STUDY/CONTRAST BOLUS: Satisfactory. PULMONARY ARTERIES: No central or segmental pulmonary emboli.? THORACIC AORTA: No aneurysm or dissection. Mild atherosclerosis. LUNGS/PLEURA/AIRWAYS: No focal consolidation, nodules or masses. Mild dependent atelectasis in the lower lobes. No pleural effusions. The airways are patent. MEDIASTINUM: The visualized thyroid gland is unremarkable. Normal heart size.? No pericardial effusion.? No hilar or mediastinal lymphadenopathy.? No evidence of septal bowing or right heart strain. CHEST WALL/AXILLA: No axillary or internal mammary lymphadenopathy. OSSEOUS STRUCTURES: Increased thoracic kyphosis and mild to moderate multilevel degenerative changes.? UPPER ABDOMEN: Gallstones. No surrounding abnormality. Small exophytic renal cyst off of the upper pole the right kidney. No reflux of contrast into the hepatic veins to suggest elevated right heart pressures. CT/CT angio chest PE protocol IMPRESSION: 1. No evidence for pulmonary embolism. 2. No acute cardiopulmonary process. 3. Cholelithiasis without evidence for acute cholecystitis. 4. Small cyst in the upper pole the right kidney demonstrate benign features. ? VTE: Negative. ECG Data Attestation: I personally reviewed and interpreted this ECG as follows: ECG interpretation date: 10/05/21 ECG interpretation time: 12:29 Interpretation: Sinus rhythm with frequent PVCs with rate of 79, normal KS, normal QRS, normal QT, T-wave inversions in lead 3 unchanged from EKG from 05/05/2010 Discharge Plan Discharge Clinical Impression: Breath shortness Patient Disposition: Home, Self-Care Instructions: Shortness of Breath (ED) Additional Instructions: Your blood work looks reassuring. Your EKG does not show any new changes when compared to year old EKG. Your CT scan is negative for any blood clot along. We recommend that you keep your appointment on Sunday with her primary care doctor. Discussed her symptoms with him. He may want you to follow-up with a meatman outpatient. Return for associated chest pain, sweating sensation, dizziness Prescriptions: No Action lovastatin 40 mg tablet 40 mg PO DAILY Qty: 90 3RF spironolacton-hydrochlorothiaz 25-25 mg tablet 1 tab PO DAILY Qty: 90 3RF amlodipine-benazepril 5-20 mg capsule 1 cap PO DAILY Qty: 90 3RF metformin 500 mg tablet 1,000 mg PO BID Qty: 360 3RF omeprazole 20 mg capsule,delayed release(DR/EC) 20 mg PO QAM Qty: 90 3RF (DME) pen needle, diabetic [BD Ultra-Fine Wanda Pen Needle] 32 gauge x 5/32 needle See Rx Instructions .ROUTE .COMPLEX Qty: 90 10RF Dose Instruction: USE DIRECTED Rx Instructions: USE DIRECTED Lantus Solostar U-100 Insulin 100 unit/mL (3 mL) insulin pen 52 unit subcut QAM 90 Days Qty: 18 3RF oxycodone-acetaminophen 5-325 mg tablet 1 tab PO Q8H PRN (Reason: severe pain) 7 Days Qty: 21 0RF OneTouch Ultra Blue Test Strip Strip 1 strip miscellaneous BID Qty: 200 3RF metoprolol succinate 50 mg tablet extended release 24 hr 50 mg PO DAILY mometasone 0.1 % cream topical DAILY cholecalciferol (vitamin D3) 50 mcg (2,000 unit) capsule 50 mcg PO DAILY lorazepam 0.5 mg tablet 0.5 mg PO BID PRN ketoconazole 2 % shampoo topical Referrals: Joselito Almanza MD [Primary Care Provider] - 2 days (as scheduled on Sunday)
[2021-10-05 22:00] LABS: Prothrombin Time 11.8 SEC (10.0-13.1)
[2021-10-05 22:12] LABS: Troponin-I High Sensitivity < 3.5 ng/L (<3.5-17.0)
[2021-10-05 22:39] LABS: Alanine Aminotransferase 16 U/L (0-31); Albumin Level 4.4 g/dL (3.5-5.0); Alkaline Phosphatase 70 U/L (39-117); Aspartate Amino Transferase 20 U/L (5-31); Bilirubin Direct 0.3 mg/dL (0.0-0.5); Bilirubin Total 0.7 mg/dL (0.0-1.0); Total Protein 7.2 g/dL (6.5-8.0)
[2021-10-05] MEDS: iohexoL 350 MG/ML 100 ML INFUS..BTL IV (22:39)
[2021-10-05 23:33] VITALS: BP 129/62; PULSE 89; RESP 16; TEMP 36.6; O2SAT 98
--- NOTE | 2021-10-05 23:53 | PC.NURSE ---
PROVIDER DISCHARGED PATIENT AND REMOVED iv. DISCHARGE PLAN REVIEWED WITH PT
== END 2021-10-05 23:55 | disposition home or self-care (01) ==
PROVIDERS: Nurse Practitioner Family; Emergency Provider Internal Medicine; PCP Internal Medicine
DX: R06.02 Shortness of breath (principal); R00.1 Bradycardia, unspecified; E11.9 Type 2 diabetes mellitus without complications; Z20.822 Contact with and (suspected) exposure to COVID-19; Z79.4 Long term (current) use of insulin; Z79.899 Other long term (current) drug therapy
CPT/HCPCS: 36415; 71045; 71275; 80048; 80076; 81001; 81003; 83880; 84484; 85025; 85610; 87635; 93005; 99284; Q9967

== ENCOUNTER 2022-02-08 10:24 | Outpatient (REF) | payer MEDICARE, SELFPAY ==
[2022-02-08 11:11] LABS: MANUAL DIFF FLAG NO
[2022-02-08 11:26] LABS: Basophils Percent Auto 0.5 % (0-2); Eosinophils Absolute Auto 0.3 X10*3/uL (0.0-0.4); Eosinophils Percent Auto 4.5 % (0-4); Hematocrit 40.1 % (37.0-47.0); Imm Gran Abs Auto 0.03 X10*3/uL (0.00-0.03); Imm Gran Pct Auto 0.4 % (0.0-0.4); Lymphocytes Absolute Auto 2.1 X10*3/uL (1.2-4.9); Lymphocytes Percent Auto 28.5 % (20-40); Mean Corpuscular HGB Conc 32.4 g/dl (31.0-35.0); Mean Corpuscular Hemoglobin 26.2 pg (27.0-33.0); Mean Corpuscular Volume 80.8 fL (80.0-98.0); Mean Platelet Volume 9.6 fL (9.4-12.3); Monocytes Absolute Auto 0.5 X10*3/uL (0.1-1.2); Monocytes Percent Auto 7.1 % (2-11); Neutrophils Absolute Auto 4.3 x10*3/uL (2.0-8.3); Platelet Count 246 X10*3/uL (160-400); Red Blood Count 4.96 X10*6/uL (4.20-5.50); Red Cell Distribution Width 14.3 % (11.0-16.0); White Blood Count 7.3 X10*3/uL (4.8-10.8)
[2022-02-08 11:27] LABS: Appearance Urine Clear; Color Urine Yellow; Glucose Urine UA Negative (Negative); Leukocyte Esterase Urine Trace (Negative); Nitrite Urine Negative (Negative); PH 8.5 (5.0-9.0); UMIC TRIGGER UACC YES; Urine Blood Negative (Negative); Urine Ketones Negative (Negative); Urine Protein Negative (Neg-Trace)
[2022-02-08 11:30] LABS: Bacteria Urine None Seen (None Seen); Hyaline Casts Urine 0-2 /LPF (0-2); RBC Urine 0-2 /HPF (0-2); Squamous Epithelial Cell Urine 0-2 /HPF (0-2); UACC Culture Trigger YES
[2022-02-08 11:38] LABS: Estimated Average Glucose 128 mg/dL; Hemoglobin A1c % 6.1 %
[2022-02-08 12:13] LABS: Creatinine Urine 132.84 mg/dL; Microalbum/Creatinine Ratio Ur 8.2 ug/mg cr
[2022-02-08 12:40] LABS: Alanine Aminotransferase 21 U/L (0-31); Albumin Level 4.2 g/dL (3.5-5.0); Alkaline Phosphatase 67 U/L (39-117); Anion Gap 13 (12-20); Aspartate Amino Transferase 21 U/L (5-31); Bilirubin Total 0.4 mg/dL (0.0-1.0); Blood Urea Nitrogen 15 mg/dL (9-16); Carbon Dioxide 30 mmol/L (22-29); Chloride 101 mmol/L (96-108); Cholesterol 140 mg/dL; Estimated Glomerular Filt Rate > 60; Glucose Fasting 114 mg/dL (60-99); HDL Cholesterol 31 mg/dL; LDL Cholesterol Calculated 80 mg/dl; Potassium 4.7 mmol/L (3.3-5.1); Sodium 139 mmol/L (135-145); TSH reflex Free T4 1.17 uIU/mL (0.32-4.0); Total Protein 6.8 g/dL (6.5-8.0); Triglycerides 148 mg/dL; Vitamin D 25-OH Total 55.3 ng/mL (>30)
== END 2022-02-08 10:25 | disposition home or self-care (01) ==
LOC: HO.HMGCLDS 10:24
PROVIDERS: PCP Internal Medicine; Visit Provider Internal Medicine
DX: E78.00 Pure hypercholesterolemia, unspecified (principal); E11.9 Type 2 diabetes mellitus without complications; E55.9 Vitamin D deficiency, unspecified; I10 Essential (primary) hypertension
CPT/HCPCS: 36415; 80053; 80061; 81001; 82043; 82306; 83036; 84443; 85025; 87086

== ENCOUNTER 2022-06-09 09:42 | Outpatient (REF) | payer MEDICARE, SELFPAY ==
[2022-06-09 11:39] LABS: MANUAL DIFF FLAG NO
[2022-06-09 11:55] LABS: Appearance Urine Clear; Color Urine Yellow; Glucose Urine UA Negative (Negative); Leukocyte Esterase Urine Trace (Negative); Nitrite Urine Negative (Negative); UMIC TRIGGER UACC YES; Urine Blood Negative (Negative); Urine Ketones Negative (Negative); Urine Protein Negative (Neg-Trace)
[2022-06-09 11:56] LABS: Basophils Percent Auto 0.6 % (0-2); Eosinophils Absolute Auto 0.2 X10*3/uL (0.0-0.4); Eosinophils Percent Auto 3.7 % (0-4); Hematocrit 40.8 % (37.0-47.0); Hemoglobin 13.3 g/dl (12.0-16.0); Imm Gran Abs Auto 0.02 X10*3/uL (0.00-0.03); Imm Gran Pct Auto 0.3 % (0.0-0.4); Lymphocytes Absolute Auto 1.8 X10*3/uL (1.2-4.9); Lymphocytes Percent Auto 28.6 % (20-40); Mean Corpuscular HGB Conc 32.6 g/dl (31.0-35.0); Mean Corpuscular Hemoglobin 26.5 pg (27.0-33.0); Mean Corpuscular Volume 81.3 fL (80.0-98.0); Mean Platelet Volume 9.4 fL (9.4-12.3); Monocytes Absolute Auto 0.5 X10*3/uL (0.1-1.2); Monocytes Percent Auto 8.3 % (2-11); Neutrophils Absolute Auto 3.6 x10*3/uL (2.0-8.3); Neutrophils Percent Auto 58.5 % (45-73); Platelet Count 237 X10*3/uL (160-400); Red Blood Count 5.02 X10*6/uL (4.20-5.50); Red Cell Distribution Width 13.8 % (11.0-16.0); White Blood Count 6.2 X10*3/uL (4.8-10.8)
[2022-06-09 11:58] LABS: Bacteria Urine None Seen (None Seen); Hyaline Casts Urine 0-2 /LPF (0-2); RBC Urine 0-2 /HPF (0-2); Squamous Epithelial Cell Urine 0-2 /HPF (0-2); WBC Urine 0-5 /HPF (0-5)
[2022-06-09 12:05] LABS: Estimated Average Glucose 171 mg/dL; Hemoglobin A1c % 7.6 %
[2022-06-09 12:25] LABS: Alanine Aminotransferase 27 U/L (0-31); Albumin Level 4.2 g/dL (3.5-5.0); Alkaline Phosphatase 74 U/L (39-117); Anion Gap 12 (12-20); Aspartate Amino Transferase 25 U/L (5-31); Bilirubin Total 0.7 mg/dL (0.0-1.0); Blood Urea Nitrogen 13 mg/dL (9-16); Calcium 9.7 mg/dL (8.4-10.2); Carbon Dioxide 29 mmol/L (22-29); Chloride 103 mmol/L (96-108); Cholesterol 145 mg/dL; Estimated Glomerular Filt Rate 57; Glucose Fasting 137 mg/dL (60-99); HDL Cholesterol 28 mg/dL; LDL Cholesterol Calculated 90 mg/dl; Potassium 4.3 mmol/L (3.3-5.1); Sodium 140 mmol/L (135-145); Total Protein 6.6 g/dL (6.5-8.0); Triglycerides 136 mg/dL
[2022-06-09 12:47] LABS: TSH reflex Free T4 2.24 uIU/mL (0.32-4.0); Vitamin D 25-OH Total 61.5 ng/mL (>30)
[2022-06-09 12:58] LABS: Creatinine Urine 163.23 mg/dL; Microalbum/Creatinine Ratio Ur 7.9 ug/mg cr
== END 2022-06-09 09:43 | disposition home or self-care (01) ==
LOC: HO.HMGCLDS 09:42
PROVIDERS: PCP Internal Medicine; Visit Provider Internal Medicine
DX: E78.00 Pure hypercholesterolemia, unspecified (principal); I10 Essential (primary) hypertension; E55.9 Vitamin D deficiency, unspecified; E11.9 Type 2 diabetes mellitus without complications
CPT/HCPCS: 36415; 80053; 80061; 81001; 82043; 82306; 83036; 84443; 85025

== ENCOUNTER 2022-10-24 10:25 | Outpatient (REF) | payer MEDICARE, SELFPAY ==
[2022-10-24 13:31] LABS: MANUAL DIFF FLAG NO
[2022-10-24 13:50] LABS: Basophils Percent Auto 0.5 % (0-2); Eosinophils Absolute Auto 0.3 X10*3/uL (0.0-0.4); Eosinophils Percent Auto 4.2 % (0-4); Hematocrit 40.1 % (37.0-47.0); Hemoglobin 13.1 g/dl (12.0-16.0); Imm Gran Abs Auto 0.01 X10*3/uL (0.00-0.03); Imm Gran Pct Auto 0.2 % (0.0-0.4); Lymphocytes Absolute Auto 1.7 X10*3/uL (1.2-4.9); Lymphocytes Percent Auto 27.6 % (20-40); Mean Corpuscular HGB Conc 32.7 g/dl (31.0-35.0); Mean Corpuscular Hemoglobin 26.6 pg (27.0-33.0); Mean Corpuscular Volume 81.3 fL (80.0-98.0); Mean Platelet Volume 9.7 fL (9.4-12.3); Monocytes Absolute Auto 0.5 X10*3/uL (0.1-1.2); Monocytes Percent Auto 7.5 % (2-11); Neutrophils Absolute Auto 3.7 x10*3/uL (2.0-8.3); Platelet Count 241 X10*3/uL (160-400); Red Blood Count 4.93 X10*6/uL (4.20-5.50); Red Cell Distribution Width 14.2 % (11.0-16.0); White Blood Count 6.2 X10*3/uL (4.8-10.8)
[2022-10-24 14:02] LABS: Estimated Average Glucose 128 mg/dL; Hemoglobin A1C 145.7804 umol/L; Hemoglobin A1c % 6.1 % (<6.0)
[2022-10-24 14:07] LABS: Alanine Aminotransferase 22 U/L (0-31); Albumin Level 4.2 g/dL (3.5-5.0); Alkaline Phosphatase 65 U/L (39-117); Anion Gap 11 (12-20); Aspartate Amino Transferase 25 U/L (5-31); Bilirubin Total 0.6 mg/dL (0.0-1.0); Blood Urea Nitrogen 20 mg/dL (9-16); Calcium 10.1 mg/dL (8.4-10.2); Carbon Dioxide 28 mmol/L (22-29); Chloride 104 mmol/L (96-108); Cholesterol 146 mg/dL (<200); Estimated Glomerular Filt Rate > 60; Glucose Fasting 103 mg/dL (60-99); HDL Cholesterol 31 mg/dL (>40); LDL Cholesterol Calculated 92 mg/dL (<100); Potassium 4.3 mmol/L (3.3-5.1); Sodium 139 mmol/L (135-145); Total Protein 7.1 g/dL (6.5-8.0); Triglycerides 118 mg/dL (<150)
[2022-10-24 14:19] LABS: Appearance Urine Clear; Color Urine Dark Yellow; Glucose Urine UA Negative (Negative); Leukocyte Esterase Urine Small (1+) (Negative); Nitrite Urine Negative (Negative); PH 5.5 (5.0-9.0); UMIC TRIGGER UACC YES; Urine Blood Negative (Negative); Urine Ketones Negative (Negative); Urine Protein Negative (Neg-Trace)
[2022-10-24 14:38] LABS: Bacteria Urine None Seen (None Seen); Hyaline Casts Urine 0-2 /LPF (0-2); RBC Urine 0-2 /HPF (0-2); Squamous Epithelial Cell Urine 0-2 /HPF (0-2); UACC Culture Trigger YES; WBC Urine 0-5 /HPF (0-5)
== END 2022-10-24 10:26 | disposition home or self-care (01) ==
LOC: HO.HMGCLDS 10:25
PROVIDERS: PCP Internal Medicine; Visit Provider Internal Medicine
DX: E78.00 Pure hypercholesterolemia, unspecified (principal); E11.9 Type 2 diabetes mellitus without complications; I10 Essential (primary) hypertension; R82.90 Unspecified abnormal findings in urine
CPT/HCPCS: 36415; 80053; 80061; 81001; 81003; 83036; 85025; 87086

== ENCOUNTER 2022-10-27 15:15 | Outpatient (AMB) | payer MEDICARE, SELFPAY ==
[2022-10-27 15:19] VITALS: BP 110/78; PULSE 72; O2SAT 98; BMI 26.1
--- NOTE | 2022-10-27 15:19 | MHC.PC.OV ---
Vital Signs 10/27/22 15:19 Height 5 ft 11 in Weight 187 lb 4 oz BMI 26.1 BP 110/78 Blood Pressure Location Lt brachial Position Sitting Pulse 72 Pulse Source Pulse Oximeter Pulse Oximetry (%) 98 Oxygen Delivery Method Room Air Intake Visit Reasons: DM, hyperlipidemia, HTN Sexual Assault Counselor Required: No Accompanied by: Self / Same As Patient Allergies fluticasone [From FLONASE] Adverse Reaction (Intermediate, Verified 10/27/22 16:22) NAUSEA Medication List - Last Reconciled 10/27/22 by Joselito Almanza MD acyclovir 5% 1 appl topical 6XD 7 days amlodipine-benazepril 5-20 mg 1 cap PO DAILY blood sugar diagnostic 1 strip miscellaneous BID cholecalciferol (vitamin D3) 50 mcg PO DAILY insulin glargine (Lantus Solostar U-100 Insulin) 48 units (0.48 mL) subcut QAM 90 days ketoconazole 2% topical lorazepam 0.5 mg PO BID PRN lovastatin 40 mg PO DAILY metformin 1,000 mg (2 x 500 mg) PO BID metoprolol succinate ER 50 mg PO DAILY mometasone 0.1% appl topical DAILY omeprazole 20 mg PO QAM oxycodone-acetaminophen 5-325 mg 1 tab PO Q8H PRN 7 days pen needle, diabetic (BD Ultra-Fine Wanda Pen Needle) USE DIRECTED sertraline 50 mg PO DAILY 30 days spironolacton-hydrochlorothiaz 25-25 mg 1 tab PO DAILY Tobacco use date assessed: 10/27/22 Fall risk assessment: No Falls in past year Last assessed Fall Risk: 10/27/22 Dental Screening Dental Screen Date: 10/27/22 Did you have a dental visit in the last 12 months?: Yes Did you have a dental problem in the last 6 months where you did not have access to dental care?: No Was dental information given to patient?: Patient has dentist HPI DM, hyperlipidemia, HTN HPI Details Patient comes in today for her follow up visit States that she feels okay and that her chronic low back pain and joint pains remain adequately controlled on her current medication She denies any headaches or dizziness Denies any chest pains, no SOB No nausea/vomiting, no abdominal pain No change in bowel habits noted Has been able to lose over 10 pounds since her last visit as she has been more active lately in the summer States that her blood sugar readings have been a lot better lately Had her follow up labs done a few days ago - to discuss her results [facility] Medical History Seborrheic dermatitis of scalp Overweight (BMI 25.0-29.9) Lumbar degenerative disc disease Vitamin D deficiency GERD without esophagitis Pure hypercholesterolemia Benign essential hypertension Chronic kidney disease (CKD), stage II (mild) Type 2 diabetes mellitus with diabetic chronic kidney disease Surgical History History of hysteroscopy (~11/2005) History of colonoscopy History of hemorrhoidectomy History of tonsillectomy Family History Mother Dementia Emphysema lung Father Emphysema lung Other Family history non-contributory Social History Housing: House Alcohol intake: current Alcohol intake frequency: holidays/special occasions only Alcohol type: wine Patient Tobacco Use Status: Never used Tobacco e-Cigarette/Vaping Use: Never Used Second Hand Smoke Exposure: Yes service: No Current occupational status: retired Cognitive needs: No Hearing needs: No Vision needs: Yes (wear glasses) Questionnaire PHQ-9 Over the last 2 weeks, how often have you been bothered by any of the following problems? 1. Little interest or pleasure in doing things: not at all 2. Feeling down, depressed, or hopeless: not at all 3. Trouble falling or staying asleep, or sleeping too much: not at all 4. Feeling tired or having little energy: not at all 5. Poor appetite or overeating: not at all 6. Feeling bad about yourself - or that you are a failure or have let yourself or your family down: not at all 7. Trouble concentrating on things, such as reading the newspaper or watching television: not at all 8. Moving or speaking so slowly that other people could have noticed. Or the opposite - being so fidgety or restless that you have been moving around a lot more than usual: not at all 9. Thoughts that you would be better off or of hurting yourself in some way: not at all Total score: 0 Depression Screening Interpretation: Negative [id number] - PHQ-9 Billing: Yes Source: Developed by Drs. Michi Pérez, Myranda Harrison, Deonte Bowser and colleagues, with an educational patric from [employer]. Thrive Questionnaire Date Thrive assessed: 10/27/22 I am a: Patient What is your living situation today?: I have a steady place to live Within the past 12 months, did the food you bought not last and you didn't have the money to get more?: Never true Within the past 12 months, did you worry whether your food would run out before you got money to buy more?: Never true Do you have trouble paying for medicines?: No Do you have trouble getting transportation to medical appointments?: No Do you have trouble paying your heating and electricity bill?: No Do you have trouble taking care of your child, family member or friend?: No Do you have trouble with day-to-day activities such as bathing, preparing meals, shopping, managing finances, etc.?: No Are you currently unemployed and looking for a job?: No Are you interested in more education?: No Please select the resources that you would like help with: None Currently or been in a relationship where the following occur: no concerns reported AUDIT C Alcohol Use Questionnaire (AUDIT-C) 1. How often do you have a drink containing alcohol?: Monthly or less 3. How often do you have six or more drinks on one occasion?: Never Total Score: 1 Score Reviewed/Action Taken: Yes CHANDANA-7 AMB Questionnaire CHANDANA-7 Date CHANDANA - 7 assessed: 10/27/22 Feeling nervous, anxious, or on edge: 0 = Not at all Not being able to stop or control worryin = Not at all Worrying too much about different things: 3 = Nearly every day Trouble relaxin = Not at all Being so restless that it is hard to sit still: 0 = Not at all Becoming easily annoyed or irritable: 0 = Not at all Feeling afraid as if something awful might happen: 0 = Not at all Total CHANDANA-7 score (0-4 normal; 5-9 mild; 10-14 moderate; 15-21 severe): 3 Source: Developed by Drs. Michi Pérez, Myranda Harrison, Deonte Bowser and colleagues, with an educational patric from [employer]. Review of Systems Const Denies chills, Denies fatigue, Denies fever(s) and Denies headache(s) ENT Denies dysphagia, Denies dizziness, Denies headache(s), Denies odynophagia, Denies sinus pain and Denies sore throat Card Denies chest pain, Denies palpitations and Denies dyspnea Resp Denies cough, Denies dyspnea and Denies wheezing GI Denies abdominal pain, Denies constipation, Denies dysphagia, Denies heartburn, Denies diarrhea, Denies nausea, Denies odynophagia and Denies vomiting Denies difficulty voiding, Denies nocturia and Denies dysuria Musc Reports back pain (left-sided sciatica - stable lately) Neuro Denies dizziness and Denies headache(s) Endo Denies fatigue and Denies palpitations Aller/Immun Denies wheezing Physical exam (Primary Care) Vital Signs: Last Vital Signs Pulse 72 10/27/22 15:19 BP 110/78 10/27/22 15:19 Pulse Ox 98 10/27/22 15:19 Oxygen Delivery Method Room Air 10/27/22 15:19 BMI result Body Mass Index 26.1 Tobacco/Smoking Status: Tobacco use Status Tobacco use date assessed 10/27/22 10/27/22 15:26 Patient Tobacco Use Status Never used Tobacco 10/27/22 15:21 e-Cigarette/Vaping Use Never Used 10/27/22 15:21 PHQ-9: PHQ-9 Score PHQ-9: Total score 0 10/27/22 16:22 Depression Screening Interpretation: Negative Thrive Assessment: Date of Thrive Assessment Date Thrive assessed 10/27/22 10/27/22 15:26 Currently or been in a relationship where the following occur: no concerns reported Const General: no acute distress and alert HENMT Throat: Yes posterior oropharynx normal and Yes tonsils normal (no TP congestion noted) Neck Neck: Yes no lymphadenopathy and Yes supple Resp Auscultation: clear to auscultation bilaterally, no rales and no wheezes Cardio Rate: regular rate Rhythm: regular rhythm Heart sounds: no murmurs GI Palpation (GI): Soft to palpation and nontender Auscultation: normal bowel sounds Back/Spine/Pelvis Thoracic/Lumbar Spine: lumbar spinal tenderness Sacroiliac joints: on the left tender to palpation (mild) Extrem General: Yes no clubbing, cyanosis or edema Results Reviewed Results Reviewed: Laboratory Tests 10/24/22 10:31 WBC 6.2 Hgb 13.1 Hct 40.1 Plt Count 241 Sodium 139 Potassium 4.3 Creatinine 0.83 Estimated GFR > 60 Fasting Glucose 103 H Hemoglobin A1c % 6.1 H Calcium 10.1 AST 25 ALT 22 Triglycerides 118 Cholesterol 146 LDL Cholesterol, Calc 92 HDL Cholesterol 31 L Ur Specific [place] 1.020 Urine Protein Negative Urine Glucose (UA) Negative Urine Blood Negative Assessment and Plan Assessment & Plan (1) Pure hypercholesterolemia: Code(s): E78.00 - Pure hypercholesterolemia, unspecified Plan: Results of her labs done a few days ago reviewed and discussed with patient Reinforced low cholesterol diet Continue Lovastatin 40 mg QD Will recheck her labs and fasting lipids in 4 months for follow-up (2) Benign essential hypertension: Code(s): I10 - Essential (primary) hypertension Plan: Reinforced low-sodium diet -? goal is systolic BP of at least 130 to 140 mm or less Continue Amlodipine -Benazepril 5-20 mg QD, Metoprolol ER 50 mg QD and Spironolactone-HCTZ 25-25 QD (3) Type 2 diabetes mellitus with diabetic chronic kidney disease: Code(s): E11.22 - Type 2 diabetes mellitus with diabetic chronic kidney disease Qualifiers: Chronic kidney disease stage: stage 2 (mild) Diabetes mellitus supervisor intermediates insulin use: without supervisor intermediates use Qualified Code(s): E11.22 - Type 2 diabetes mellitus with diabetic chronic kidney disease; N18.2 - Chronic kidney disease, stage 2 (mild) Plan: HgbA1c is at 6.1% on her labs done a few days ago (was at 7.6% previously) - goal is < 7.0% Reinforced diabetic diet Continue Metformin 500 mg 2 tablets BID and Lantus 48 units QD (4) Chronic kidney disease (CKD), stage II (mild): Code(s): N18.2 - Chronic kidney disease, stage 2 (mild) Plan: Stable -? will continue to monitor her GFR and renal function regularly (5) GERD without esophagitis: Code(s): K21.9 - Gastro-esophageal reflux disease without esophagitis Plan: Dietary restrictions reinforced Continue Omeprazole 20 mg QD (6) Lumbar degenerative disc disease: Code(s): M51.36 - Other intervertebral disc degeneration, lumbar region Plan: Reinforced activity and weight lifting restrictions Continue Oxycodone-Acetaminophen 5-325 mg every 8 hours only as needed (7) Vitamin D deficiency: Code(s): E55.9 - Vitamin D deficiency, unspecified Plan: Continue Vitamin D3 2000 units QD (8) Overweight (BMI 25.0-29.9): Code(s): E66.3 - Overweight Plan: Reinforced diet/exercise as tolerated/lose weight - patient has been able to lose over 10 pounds since her last visit Plan Follow up in 4 months Orders: Orders Microalbumin, Random (w Creat) 4 Months E11.9 - Type 2 diabetes mellitus without complications UA CC w/rflx Micro + Cult 4 Months R30.0 - Dysuria Complete Blood Count Auto Diff 4 Months I10 - Essential (primary) hypertension Comprehensive [place]. Panel Fast 4 Months E78.00 - Pure hypercholesterolemia, unspecified Lipid Panel 4 Months E78.00 - Pure hypercholesterolemia, unspecified Hemoglobin A1c 4 Months E11.9 - Type 2 diabetes mellitus without complications Vitamin D 25-OH Total 4 Months E55.9 - Vitamin D deficiency, unspecified TSH reflex Free T4 4 Months E78.00 - Pure hypercholesterolemia, unspecified Coding Level of Care Code Est Pt Level 4 (58725) Diagnoses Pure hypercholesterolemia E78.00 Benign essential hypertension I10 Type 2 diabetes mellitus with stage 2 chronic kidney disease, without long-term current use of insulin E11.22; N18.2 Chronic kidney disease stage: stage 2 (mild) Diabetes mellitus supervisor intermediates insulin use: without supervisor intermediates use Chronic kidney disease (CKD), stage II (mild) N18.2 GERD without esophagitis K21.9 Lumbar degenerative disc disease M51.36 Vitamin D deficiency E55.9 Overweight (BMI 25.0-29.9) E66.3
== END 2022-10-27 16:23 | disposition home or self-care (01) ==
PROVIDERS: PCP Internal Medicine; Visit Provider Internal Medicine
DX: E11.22 Type 2 diabetes mellitus with diabetic chronic kidney disease (principal); N18.2 Chronic kidney disease, stage 2 (mild); K21.9 Gastro-esophageal reflux disease without esophagitis; E55.9 Vitamin D deficiency, unspecified; I12.9 Hypertensive chronic kidney disease with stage 1 through stage 4 chronic kidney disease, or unspecified chronic kidney disease; E78.00 Pure hypercholesterolemia, unspecified; M51.36 Other intervertebral disc degeneration, lumbar region; E66.3 Overweight
CPT/HCPCS: 99214

== ENCOUNTER 2023-02-23 09:55 | Outpatient (REF) | payer MEDICARE, SELFPAY ==
[2023-02-23 13:17] LABS: MANUAL DIFF FLAG NO
[2023-02-23 13:23] LABS: Basophils Percent Auto 0.5 % (0-2); Eosinophils Absolute Auto 0.2 X10*3/uL (0.0-0.4); Eosinophils Percent Auto 3.5 % (0-4); Hematocrit 39.5 % (37.0-47.0); Hemoglobin 12.7 g/dl (12.0-16.0); Imm Gran Abs Auto 0.02 X10*3/uL (0.00-0.03); Imm Gran Pct Auto 0.3 % (0.0-0.4); Lymphocytes Absolute Auto 1.3 X10*3/uL (1.2-4.9); Lymphocytes Percent Auto 21.1 % (20-40); Mean Corpuscular HGB Conc 32.2 g/dl (31.0-35.0); Mean Corpuscular Hemoglobin 25.9 pg (27.0-33.0); Mean Corpuscular Volume 80.6 fL (80.0-98.0); Mean Platelet Volume 9.5 fL (9.4-12.3); Monocytes Absolute Auto 0.5 X10*3/uL (0.1-1.2); Monocytes Percent Auto 7.5 % (2-11); Neutrophils Absolute Auto 4.2 x10*3/uL (2.0-8.3); Neutrophils Percent Auto 67.1 % (45-73); Platelet Count 239 X10*3/uL (160-400); Red Cell Distribution Width 14.4 % (11.0-16.0); White Blood Count 6.3 X10*3/uL (4.8-10.8)
[2023-02-23 13:35] LABS: Appearance Urine Clear; Color Urine Dark Yellow; Glucose Urine UA Negative (Negative); Leukocyte Esterase Urine Small (1+) (Negative); Nitrite Urine Negative (Negative); PH 5.5 (5.0-9.0); Specific Gravity - Urine 1.025 (1.005-1.025); UMIC TRIGGER UACC YES; Urine Blood Negative (Negative); Urine Ketones Trace mg/dL (Negative); Urine Protein Trace mg/dL (Neg-Trace)
[2023-02-23 13:39] LABS: Bacteria Urine None Seen (None Seen); Hyaline Casts Urine 0-2 /LPF (0-2); RBC Urine 0-2 /HPF (0-2); Squamous Epithelial Cell Urine 0-2 /HPF (0-2); UACC Culture Trigger YES
[2023-02-23 13:58] LABS: Alanine Aminotransferase 23 U/L (0-31); Alkaline Phosphatase 71 U/L (39-117); Anion Gap 13 (12-20); Aspartate Amino Transferase 23 U/L (5-31); Bilirubin Total 0.6 mg/dL (0.0-1.0); Blood Urea Nitrogen 15 mg/dL (9-16); Carbon Dioxide 29 mmol/L (22-29); Chloride 102 mmol/L (96-108); Cholesterol 127 mg/dL (<200); Estimated Glomerular Filt Rate > 60; Glucose Fasting 106 mg/dL (60-99); HDL Cholesterol 26 mg/dL (>40); LDL Cholesterol Calculated 72 mg/dL (<100); Potassium 3.6 mmol/L (3.3-5.1); Sodium 140 mmol/L (135-145); Triglycerides 146 mg/dL (<150)
[2023-02-23 14:12] LABS: Estimated Average Glucose 163 mg/dL; Hemoglobin A1c % 7.3 % (<6.0)
[2023-02-23 14:16] LABS: TSH reflex Free T4 2.22 uIU/mL (0.32-4.0); Vitamin D 25-OH Total 68.5 ng/mL (>30)
[2023-02-23 14:48] LABS: Creatinine Urine 215.59 mg/dL; Microalbum/Creatinine Ratio Ur 39.8 ug/mg cr (<30)
== END 2023-02-23 09:56 | disposition home or self-care (01) ==
LOC: HO.HMGCLDS 09:55
PROVIDERS: PCP Internal Medicine; Visit Provider Internal Medicine
DX: I10 Essential (primary) hypertension (principal); E78.00 Pure hypercholesterolemia, unspecified; E11.9 Type 2 diabetes mellitus without complications; E55.9 Vitamin D deficiency, unspecified; R30.0 Dysuria
CPT/HCPCS: 36415; 80053; 80061; 81001; 82043; 82306; 82570; 83036; 84443; 85025; 87086

== ENCOUNTER 2023-03-02 15:10 | Outpatient (AMB) | payer MEDICARE, SELFPAY ==
--- NOTE | 2023-03-02 15:17 | MHC.PC.OV ---
Vital Signs 03/02/23 15:19 03/02/23 16:07 Height 5 ft 11 in Weight 190 lb BMI 26.5 BP 100/60 116/60 Blood Pressure Location Lt brachial Lt brachial Position Sitting Sitting Pulse 71 Pulse Source Pulse Oximeter Pulse Oximetry (%) 98 Oxygen Delivery Method Room Air Intake Visit Reasons: DM, hyperlipidemia Intake Note: Patient is here to follow up on DM, Hyperlipidemia. Cell Tender Helper Required: No Liquor Clerk: Not Required per policy Accompanied by: Self / Same As Patient Allergies fluticasone [From FLONASE] Adverse Reaction (Intermediate, Verified 03/02/23 15:34) NAUSEA Medication List - Last Reconciled 03/02/23 by Joselito Almanza MD acyclovir 5% 1 appl topical 6XD 7 days amlodipine-benazepril 5-20 mg 1 cap PO DAILY blood sugar diagnostic 1 strip miscellaneous BID cholecalciferol (vitamin D3) 50 mcg PO DAILY insulin glargine (Lantus Solostar U-100 Insulin) 48 units (0.48 mL) subcut QAM 90 days ketoconazole 2% topical lorazepam 0.5 mg PO BID PRN lovastatin 40 mg PO DAILY metformin 1,000 mg (2 x 500 mg) PO BID metoprolol succinate ER 50 mg PO DAILY omeprazole 20 mg PO QAM oxycodone-acetaminophen 5-325 mg 1 tab PO Q8H PRN 7 days pen needle, diabetic (BD Ultra-Fine Wanda Pen Needle) USE DIRECTED sertraline 50 mg PO DAILY 30 days spironolacton-hydrochlorothiaz 25-25 mg 1 tab PO DAILY Tobacco use date assessed: 03/02/23 Fall risk assessment: No Falls in past year Last assessed Fall Risk: 03/02/23 Dental Screening Dental Screen Date: 03/02/23 Did you have a dental visit in the last 12 months?: Yes Did you have a dental problem in the last 6 months where you did not have access to dental care?: No Was dental information given to patient?: Patient has dentist HPI DM, hyperlipidemia HPI Details Patient comes in today for her follow up visit States that she feels okay She denies any headaches or dizziness Denies any chest pains, no SOB No nausea/vomiting, no abdominal pain No change in bowel habits noted States that her chronic low back pain and joint pains remain adequately controlled on her current Rx Had her follow up labs done last week - to discuss her results [facility] Medical History Seborrheic dermatitis of scalp Overweight (BMI 25.0-29.9) Lumbar degenerative disc disease Vitamin D deficiency GERD without esophagitis Pure hypercholesterolemia Benign essential hypertension Chronic kidney disease (CKD), stage II (mild) Type 2 diabetes mellitus with diabetic chronic kidney disease Surgical History History of hysteroscopy (~11/2005) History of colonoscopy History of hemorrhoidectomy History of tonsillectomy Family History Mother Dementia Emphysema lung Father Emphysema lung Other Family history non-contributory Social History Housing: House Alcohol intake: current Alcohol intake frequency: holidays/special occasions only Alcohol type: wine Patient Tobacco Use Status: Never used Tobacco e-Cigarette/Vaping Use: Never Used Second Hand Smoke Exposure: Yes service: No Current occupational status: retired Cognitive needs: No Hearing needs: No Vision needs: Yes (wear glasses) Questionnaire PHQ-9 Over the last 2 weeks, how often have you been bothered by any of the following problems? 1. Little interest or pleasure in doing things: not at all 2. Feeling down, depressed, or hopeless: several days (on medication) 3. Trouble falling or staying asleep, or sleeping too much: not at all 4. Feeling tired or having little energy: not at all 5. Poor appetite or overeating: not at all 6. Feeling bad about yourself - or that you are a failure or have let yourself or your family down: not at all 7. Trouble concentrating on things, such as reading the newspaper or watching television: not at all 8. Moving or speaking so slowly that other people could have noticed. Or the opposite - being so fidgety or restless that you have been moving around a lot more than usual: not at all 9. Thoughts that you would be better off or of hurting yourself in some way: not at all Total score: 1 Depression Screening Interpretation: Negative Depression Screening Done: Yes [id number] - PHQ-9 Billing: Yes Source: Developed by Drs. Michi Pérez, Myranda Harrison, Deonte Bowser and colleagues, with an educational patric from [employer]. Thrive Questionnaire Date Thrive assessed: 03/02/23 I am a: Patient What is your living situation today?: I have a steady place to live Within the past 12 months, did the food you bought not last and you didn't have the money to get more?: Never true Within the past 12 months, did you worry whether your food would run out before you got money to buy more?: Never true Do you have trouble paying for medicines?: No Do you have trouble getting transportation to medical appointments?: No Do you have trouble paying your heating and electricity bill?: No Do you have trouble taking care of your child, family member or friend?: No Do you have trouble with day-to-day activities such as bathing, preparing meals, shopping, managing finances, etc.?: No Are you currently unemployed and looking for a job?: No Are you interested in more education?: No Currently or been in a relationship where the following occur: no concerns reported THRIVE Score: 0 AUDIT C Alcohol Use Questionnaire (AUDIT-C) 1. How often do you have a drink containing alcohol?: Monthly or less 2. How many drinks containing alcohol do you have on a typical day when you are drinking?: 1 or 2 Total Score: 1 Score Reviewed/Action Taken: Yes CHANDANA-7 AMB Questionnaire CHANDANA-7 Date CHANDANA - 7 assessed: 03/02/23 Feeling nervous, anxious, or on edge: 0 = Not at all Not being able to stop or control worryin = Not at all Worrying too much about different things: 0 = Not at all Trouble relaxin = Not at all Being so restless that it is hard to sit still: 0 = Not at all Becoming easily annoyed or irritable: 0 = Not at all Feeling afraid as if something awful might happen: 0 = Not at all Total CHANDANA-7 score (0-4 normal; 5-9 mild; 10-14 moderate; 15-21 severe): 0 Source: Developed by Myranda Colón Kurt Kroenke and colleagues, with an educational patric from [employer]. Review of Systems Const Denies chills, Denies fatigue, Denies fever(s) and Denies headache(s) ENT Denies dysphagia, Denies dizziness, Denies otalgia, Denies headache(s), Denies neck pain, Denies odynophagia and Denies sore throat Card Denies chest pain, Denies palpitations and Denies dyspnea Resp Denies cough, Denies dyspnea and Denies wheezing GI Denies abdominal pain, Denies constipation, Denies dysphagia, Denies heartburn, Denies diarrhea, Denies nausea, Denies odynophagia and Denies vomiting Denies difficulty voiding, Denies nocturia, Denies dysuria and Denies urinary urgency Musc Reports back pain (left-sided sciatica - stable lately) and Denies neck pain Skin/Breast Denies rash Neuro Denies dizziness and Denies headache(s) Endo Denies fatigue and Denies palpitations Aller/Immun Denies wheezing Physical exam (Primary Care) Vital Signs: Last Vital Signs Pulse 71 03/02/23 15:19 BP 100/60 03/02/23 15:19 Pulse Ox 98 03/02/23 15:19 Oxygen Delivery Method Room Air 03/02/23 15:19 BMI result Body Mass Index 26.5 Tobacco/Smoking Status: Tobacco use Status Tobacco use date assessed 03/02/23 03/02/23 15:19 Patient Tobacco Use Status Never used Tobacco 03/02/23 15:19 e-Cigarette/Vaping Use Never Used 03/02/23 15:19 PHQ-9: PHQ-9 Score PHQ-9: Total score 1 03/02/23 15:31 Depression Screening Interpretation: Negative Thrive Assessment: Date of Thrive Assessment Date Thrive assessed 03/02/23 03/02/23 15:19 Currently or been in a relationship where the following occur: no concerns reported Const General: no acute distress and alert HENMT Ears: TM's normal bilaterally and EAC's normal Throat: Yes posterior oropharynx normal and Yes tonsils normal (no TP congestion noted) Neck Neck: Yes no lymphadenopathy and Yes supple Resp Auscultation: clear to auscultation bilaterally, no rales and no wheezes Cardio Rate: regular rate Rhythm: regular rhythm Heart sounds: no murmurs GI Palpation (GI): Soft to palpation and nontender Auscultation: normal bowel sounds Back/Spine/Pelvis Thoracic/Lumbar Spine: lumbar spinal tenderness Sacroiliac joints: on the left tender to palpation (mild) Extrem General: Yes no clubbing, cyanosis or edema Results Reviewed Results Reviewed: Laboratory Tests 02/23/23 02/23/23 02/23/23 10:00 10:00 10:05 WBC 6.3 Hgb 12.7 Hct 39.5 Plt Count 239 Sodium 140 Potassium 3.6 Creatinine 0.83 Estimated GFR > 60 Fasting Glucose 106 H Hemoglobin A1c % 7.3 H Calcium 10.0 AST 23 ALT 23 Triglycerides 146 Cholesterol 127 LDL Cholesterol, Calc 72 HDL Cholesterol 26 L 25-OH Vitamin D Total 68.5 TSH 2.22 Urine Glucose (UA) Negative Urine Blood Urine Nitrite Ur Leukocyte Esterase Microalb/Creat Ratio 02/23/23 10:05 WBC Hgb Hct Plt Count Sodium Potassium Creatinine Estimated GFR Fasting Glucose Hemoglobin A1c % Calcium AST ALT Triglycerides Cholesterol LDL Cholesterol, Calc HDL Cholesterol 25-OH Vitamin D Total TSH Urine Glucose (UA) Urine Blood Negative Urine Nitrite Negative Ur Leukocyte Esterase Small (1+) H Microalb/Creat Ratio 39.8 H Assessment and Plan Assessment & Plan (1) Pure hypercholesterolemia: Code(s): E78.00 - Pure hypercholesterolemia, unspecified Plan: Results of her labs done last week reviewed and discussed with patient Reinforced low cholesterol diet Continue Lovastatin 40 mg QD Will recheck her labs and fasting lipids in 4 months for follow-up (2) Type 2 diabetes mellitus with diabetic chronic kidney disease: Code(s): E11.22 - Type 2 diabetes mellitus with diabetic chronic kidney disease Qualifiers: Diabetes mellitus [facility] insulin use: without termite inspector use Chronic kidney disease stage: stage 2 (mild) Qualified Code(s): E11.22 - Type 2 diabetes mellitus with diabetic chronic kidney disease; N18.2 - Chronic kidney disease, stage 2 (mild) Plan: HgbA1c is at 7.3% on her labs done last week (was at 6.1% a few months ago) - goal is < 7.0% Reinforced diabetic diet Continue Metformin 500 mg 2 tablets BID and Lantus 48 units QD (3) Benign essential hypertension: Code(s): I10 - Essential (primary) hypertension Plan: Reinforced low-sodium diet -? goal is systolic BP of at least 130 to 140 mm or less Continue Amlodipine -Benazepril 5-20 mg QD, Metoprolol ER 50 mg QD and Spironolactone-HCTZ 25-25 QD (4) Chronic kidney disease (CKD), stage II (mild): Code(s): N18.2 - Chronic kidney disease, stage 2 (mild) Plan: Stable -? will continue to monitor her GFR and renal function regularly (5) GERD without esophagitis: Code(s): K21.9 - Gastro-esophageal reflux disease without esophagitis Plan: Dietary restrictions reinforced Continue Omeprazole 20 mg QD (6) Lumbar degenerative disc disease: Code(s): M51.36 - Other intervertebral disc degeneration, lumbar region Plan: Reinforced activity and weight lifting restrictions Continue Oxycodone-Acetaminophen 5-325 mg every 8 hours only as needed - Rx refilled (7) Vitamin D deficiency: Code(s): E55.9 - Vitamin D deficiency, unspecified Plan: Continue Vitamin D3 2000 units QD (8) Overweight (BMI 25.0-29.9): Code(s): E66.3 - Overweight Plan: Reinforced diet/exercise as tolerated/lose weight Plan Follow up in 4 months Orders: Orders Complete Blood Count Auto Diff 4 Months D64.9 - Anemia, unspecified Comprehensive [place]. Panel Fast 4 Months E78.00 - Pure hypercholesterolemia, unspecified Lipid Panel 4 Months E78.00 - Pure hypercholesterolemia, unspecified Microalbumin, Random (w Creat) 4 Months E11.9 - Type 2 diabetes mellitus without complications Hemoglobin A1c 4 Months E11.9 - Type 2 diabetes mellitus without complications Vitamin D 25-OH Total 4 Months E55.9 - Vitamin D deficiency, unspecified TSH reflex Free T4 4 Months E78.00 - Pure hypercholesterolemia, unspecified UA CC w/rflx Micro + Cult 4 Months R30.0 - Dysuria Vitamin B12 and Folate 4 Months E53.8 - Deficiency of other specified B group vitamins Medications: Refilled oxycodone-acetaminophen 5-325 mg 1 tab PO Q8H 7 days PRN 21 tabs 0RF severe pain M51.36 - Other intervertebral disc degeneration, lumbar region Coding Level of Care Code Est Pt Level 4 (23007) Diagnoses Pure hypercholesterolemia E78.00 Type 2 diabetes mellitus with stage 2 chronic kidney disease, without long-term current use of insulin E11.22; N18.2 Diabetes mellitus termite inspector insulin use: without [facility] use Chronic kidney disease stage: stage 2 (mild) Benign essential hypertension I10 Chronic kidney disease (CKD), stage II (mild) N18.2 GERD without esophagitis K21.9 Lumbar degenerative disc disease M51.36 Vitamin D deficiency E55.9 Overweight (BMI 25.0-29.9) E66.3
[2023-03-02 15:19] VITALS: BP 100/60; PULSE 71; O2SAT 98; BMI 26.5
[2023-03-02 16:07] VITALS: BP 116/60
== END 2023-03-02 16:14 | disposition home or self-care (01) ==
PROVIDERS: PCP Internal Medicine; Visit Provider Internal Medicine
DX: E78.00 Pure hypercholesterolemia, unspecified (principal); E11.22 Type 2 diabetes mellitus with diabetic chronic kidney disease; N18.2 Chronic kidney disease, stage 2 (mild); I12.9 Hypertensive chronic kidney disease with stage 1 through stage 4 chronic kidney disease, or unspecified chronic kidney disease; K21.9 Gastro-esophageal reflux disease without esophagitis; M51.36 Other intervertebral disc degeneration, lumbar region; E55.9 Vitamin D deficiency, unspecified; E66.3 Overweight
CPT/HCPCS: 99214

== ENCOUNTER 2023-05-24 11:58 | Outpatient (AMB) | payer MEDICARE, SELFPAY ==
--- NOTE | 2023-05-24 12:06 | MHC.PC.OV ---
Vital Signs 05/24/23 12:07 Height 5 ft 11 in Weight 190 lb 0.4 oz BMI 26.5 BP 98/62 Blood Pressure Location Lt brachial Position Sitting Pulse 89 Pulse Source Pulse Oximeter Pulse Oximetry (%) 97 Oxygen Delivery Method Room Air Intake Visit Reasons: Cataract Surgery Intake Note: Patient is here for a Pre-op for Left eye Cataract surgery scheduled with Dr. Ronaldo Duarte on 06/01/2023 and Right Eye 06/15/2023 Regional Director Of Finance Required: No Allergies fluticasone [From FLONASE] Adverse Reaction (Intermediate, Verified 05/24/23 12:42) NAUSEA Medication List - Last Reconciled 05/24/23 by Joselito Almanza MD acyclovir 5% 1 appl topical 6XD 7 days amlodipine-benazepril 5-20 mg 1 cap PO DAILY blood sugar diagnostic 1 strip miscellaneous BID budesonide 32 mcg/actuation 2 sprays intranasal QAM cetirizine 10 mg PO DAILY PRN 90 days cholecalciferol (vitamin D3) 50 mcg PO DAILY insulin glargine (Lantus Solostar U-100 Insulin) 48 units (0.48 mL) subcut QAM 90 days ketoconazole 2% topical lorazepam 0.5 mg PO BID PRN lovastatin 40 mg PO DAILY metformin 1,000 mg (2 x 500 mg) PO BID metoprolol succinate ER 50 mg PO DAILY omeprazole 20 mg PO QAM oxycodone-acetaminophen 5-325 mg 1 tab PO Q8H PRN 7 days pen needle, diabetic (BD Ultra-Fine Wanda Pen Needle) USE DIRECTED sertraline 50 mg PO DAILY 30 days spironolacton-hydrochlorothiaz 25-25 mg 1 tab PO DAILY Tobacco use date assessed: 05/24/23 Fall risk assessment: No Falls in past year Dental Screening Dental Screen Date: 03/02/23 HPI Cataract Surgery HPI Details Patient comes in today at the request of Dr. Ronaldo Duarte for a preoperative medical examination for clearance for surgery She is scheduled for cataract extraction/phacoemusification with IOL of the left eye under MAC next week on 06/01/2023, followed by the same procedure on the right eye 2 weeks later on 06/15/2023 Patient states that she currently feels okay aside from some recurrent nasal drainage and on and off productive coughing lately Notes that her symptoms seem to be worse in the morning when she first wakes up and would gradually clear up in an hour or so She denies any fever or sore throat; denies any headaches or dizziness Denies any exertional chest pains or increased SOB and states that she does not experience any chest congestion No nausea/vomiting, no abdominal pain No change in bowel habits noted PFSH Medical History Allergic rhinitis Seborrheic dermatitis of scalp Overweight (BMI 25.0-29.9) Lumbar degenerative disc disease Vitamin D deficiency GERD without esophagitis Pure hypercholesterolemia Benign essential hypertension Chronic kidney disease (CKD), stage II (mild) Type 2 diabetes mellitus with diabetic chronic kidney disease Surgical History History of hysteroscopy (~11/2005) History of colonoscopy History of hemorrhoidectomy History of tonsillectomy Family History Mother Dementia Emphysema lung Father Emphysema lung Other Family history non-contributory Social History Housing: House Alcohol intake: current Alcohol intake frequency: holidays/special occasions only Alcohol type: wine Patient Tobacco Use Status: Never used Tobacco e-Cigarette/Vaping Use: Never Used Second Hand Smoke Exposure: Yes service: No Current occupational status: retired Cognitive needs: No Hearing needs: No Vision needs: Yes (wear glasses) Questionnaire Thrive Questionnaire Date Thrive assessed: 05/24/23 I am a: Patient What is your living situation today?: I have a steady place to live Within the past 12 months, did the food you bought not last and you didn't have the money to get more?: Never true Within the past 12 months, did you worry whether your food would run out before you got money to buy more?: Never true Do you have trouble paying for medicines?: No Do you have trouble getting transportation to medical appointments?: No Do you have trouble paying your heating and electricity bill?: No Do you have trouble taking care of your child, family member or friend?: No Do you have trouble with day-to-day activities such as bathing, preparing meals, shopping, managing finances, etc.?: No Are you currently unemployed and looking for a job?: No Are you interested in more education?: No Please select the resources that you would like help with: None Currently or been in a relationship where the following occur: no concerns reported THRIVE Score: 0 AUDIT C Alcohol Use Questionnaire (AUDIT-C) 1. How often do you have a drink containing alcohol?: Monthly or less 2. How many drinks containing alcohol do you have on a typical day when you are drinking?: 1 or 2 3. How often do you have six or more drinks on one occasion?: Never Total Score: 1 Score Reviewed/Action Taken: Yes CHANDANA-7 AMB Questionnaire CHANDANA-7 Date CHANDANA - 7 assessed: 03/02/23 Source: Developed by Drs. Michi Pérez, Myranda Harrison, Deonte Bowser and colleagues, with an educational patric from [employer]. Review of Systems Const Denies chills, Denies fatigue, Denies fever(s) and Denies headache(s) ENT Denies dysphagia, Denies dizziness, Denies otalgia, Denies headache(s), Reports nasal discharge, Denies neck pain, Denies odynophagia and Denies sore throat Card Denies chest pain, Denies palpitations and Denies dyspnea Resp Denies chest congestion, Reports cough (on and off, worse in AM - coughs up clear phlegm and gradually improves), Denies dyspnea and Denies wheezing GI Denies abdominal pain, Denies constipation, Denies dysphagia, Denies heartburn, Denies diarrhea, Denies nausea, Denies odynophagia and Denies vomiting Denies difficulty voiding, Denies nocturia, Denies dysuria and Denies urinary urgency Musc Reports back pain (left-sided sciatica - stable lately) and Denies neck pain Skin/Breast Denies rash Neuro Denies dizziness and Denies headache(s) Endo Denies fatigue and Denies palpitations Aller/Immun Reports seasonal rhinorrhea and Denies wheezing Physical exam (Primary Care) Vital Signs: Last Vital Signs Pulse 89 05/24/23 12:07 BP 98/62 05/24/23 12:07 Pulse Ox 97 05/24/23 12:07 Oxygen Delivery Method Room Air 05/24/23 12:07 BMI result Body Mass Index 26.5 Tobacco/Smoking Status: Tobacco use Status Tobacco use date assessed 05/24/23 05/24/23 12:07 Patient Tobacco Use Status Never used Tobacco 05/24/23 12:07 e-Cigarette/Vaping Use Never Used 05/24/23 12:07 Thrive Assessment: Date of Thrive Assessment Date Thrive assessed 05/24/23 05/24/23 12:09 Currently or been in a relationship where the following occur: no concerns reported Const General: no acute distress and alert HENMT Ears: TM's normal bilaterally and EAC's normal Throat: Yes posterior oropharynx normal and Yes tonsils normal (no TP congestion noted) Neck Neck: Yes no lymphadenopathy and Yes supple Resp Auscultation: clear to auscultation bilaterally, no rales and no wheezes Cardio Rate: regular rate Rhythm: regular rhythm Heart sounds: no murmurs GI Palpation (GI): Soft to palpation and nontender Auscultation: normal bowel sounds Back/Spine/Pelvis Thoracic/Lumbar Spine: lumbar spinal tenderness Sacroiliac joints: on the left tender to palpation (mild) Extrem General: Yes no clubbing, cyanosis or edema Assessment and Plan Assessment & Plan (1) Preoperative examination: Code(s): Z01.818 - Encounter for other preprocedural examination Plan: Patient presents with acceptable risks for planned low cardiac risk procedure(s) She has no significant cardiac or respiratory issues and her blood pressure and diabetes are both well-controlled on her current regimen (2) Cataracts, bilateral: Code(s): H26.9 - Unspecified cataract Qualifiers: Cataract type: unspecified Qualified Code(s): H26.9 - Unspecified cataract Plan: She is scheduled for cataract extraction/phacoemusification with IOL of the left eye under MAC next week on 06/01/2023, followed by the same procedure on the right eye 2 weeks later on 06/15/[address] Ronaldo Duarte (3) Allergic rhinitis: Code(s): J30.9 - Allergic rhinitis, unspecified Qualifiers: Allergic rhinitis trigger: pollen Allergic rhinitis seasonality: seasonal Qualified Code(s): J30.1 - Allergic rhinitis due to pollen Plan: Will start her on Cetirizine 10 mg QD PRN and Budesonide 32 mcg nasal spray 2 sprays QD PRN (4) Pure hypercholesterolemia: Code(s): E78.00 - Pure hypercholesterolemia, unspecified Plan: Reinforced low cholesterol diet Continue Lovastatin 40 mg QD (5) Type 2 diabetes mellitus with diabetic chronic kidney disease: Code(s): E11.22 - Type 2 diabetes mellitus with diabetic chronic kidney disease Qualifiers: Diabetes mellitus halfway insulin use: without exterminator termite use Chronic kidney disease stage: stage 2 (mild) Qualified Code(s): E11.22 - Type 2 diabetes mellitus with diabetic chronic kidney disease; N18.2 - Chronic kidney disease, stage 2 (mild) Plan: Her HgbA1c was at 7.3% when last checked in February 2023 Reinforced diabetic diet Continue Metformin 500 mg 2 tablets BID and Lantus 48 units QD (6) Benign essential hypertension: Code(s): I10 - Essential (primary) hypertension Plan: Reinforced low-sodium diet -? goal is systolic BP of at least 130 to 140 mm or less Continue Amlodipine -Benazepril 5-20 mg QD, Metoprolol ER 50 mg QD and Spironolactone-HCTZ 25-25 QD (7) Chronic kidney disease (CKD), stage II (mild): Code(s): N18.2 - Chronic kidney disease, stage 2 (mild) Plan: Stable -? will continue to monitor her GFR and renal function regularly (8) GERD without esophagitis: Code(s): K21.9 - Gastro-esophageal reflux disease without esophagitis Plan: Dietary restrictions reinforced Continue Omeprazole 20 mg QD (9) Lumbar degenerative disc disease: Code(s): M51.36 - Other intervertebral disc degeneration, lumbar region Plan: Reinforced activity and weight lifting restrictions Continue Oxycodone-Acetaminophen 5-325 mg every 8 hours only as needed (10) Vitamin D deficiency: Code(s): E55.9 - Vitamin D deficiency, unspecified Plan: Continue Vitamin D3 2000 units QD (11) Overweight (BMI 25.0-29.9): Code(s): E66.3 - Overweight Plan: Reinforced diet/exercise as tolerated/lose weight Plan Patient is currently medically optimized and has no contraindications to undergo planned cataract surgery/eye procedures - she is cleared for surgery Follow up as scheduled next month Medications: New cetirizine 10 mg PO DAILY 90 days PRN 90 tabs 1RF allergy symptoms budesonide 32 mcg/actuation administer into each nostril 2 sprays intranasal QAM 8.43 mL 3RF Coding Level of Care Code Est Pt Level 4 (69747) Diagnoses Preoperative examination Z01.818 Cataract of both eyes, unspecified cataract type H26.9 Cataract type: unspecified Seasonal allergic rhinitis due to pollen J30.1 Allergic rhinitis trigger: pollen Allergic rhinitis seasonality: seasonal Pure hypercholesterolemia E78.00 Type 2 diabetes mellitus with stage 2 chronic kidney disease, without long-term current use of insulin E11.22; N18.2 Diabetes mellitus halfway insulin use: without halfway use Chronic kidney disease stage: stage 2 (mild) Benign essential hypertension I10 Chronic kidney disease (CKD), stage II (mild) N18.2 GERD without esophagitis K21.9 Lumbar degenerative disc disease M51.36 Vitamin D deficiency E55.9 Overweight (BMI 25.0-29.9) E66.3
[2023-05-24 12:07] VITALS: BP 98/62; PULSE 89; O2SAT 97; BMI 26.5
== END 2023-05-24 12:46 | disposition home or self-care (01) ==
PROVIDERS: PCP Internal Medicine; Visit Provider Internal Medicine
DX: E11.22 Type 2 diabetes mellitus with diabetic chronic kidney disease (principal); Z01.818 Encounter for other preprocedural examination; I12.9 Hypertensive chronic kidney disease with stage 1 through stage 4 chronic kidney disease, or unspecified chronic kidney disease; N18.2 Chronic kidney disease, stage 2 (mild); H26.9 Unspecified cataract; J30.1 Allergic rhinitis due to pollen; E78.00 Pure hypercholesterolemia, unspecified; K21.9 Gastro-esophageal reflux disease without esophagitis; M51.36 Other intervertebral disc degeneration, lumbar region; E55.9 Vitamin D deficiency, unspecified; E66.3 Overweight
CPT/HCPCS: 99214

== ENCOUNTER 2023-06-25 10:27 | Outpatient (REF) | payer MEDICARE, SELFPAY ==
[2023-06-25 13:27] LABS: MANUAL DIFF FLAG NO
[2023-06-25 13:51] LABS: Basophils Percent Auto 0.4 % (0-2); Eosinophils Absolute Auto 0.3 X10*3/uL (0.0-0.4); Eosinophils Percent Auto 3.8 % (0-4); Hematocrit 39.6 % (37.0-47.0); Hemoglobin 12.9 g/dl (12.0-16.0); Imm Gran Abs Auto 0.02 X10*3/uL (0.00-0.03); Imm Gran Pct Auto 0.3 % (0.0-0.4); Lymphocytes Absolute Auto 1.6 X10*3/uL (1.2-4.9); Lymphocytes Percent Auto 23.5 % (20-40); Mean Corpuscular HGB Conc 32.6 g/dl (31.0-35.0); Mean Corpuscular Hemoglobin 26.1 pg (27.0-33.0); Mean Platelet Volume 9.5 fL (9.4-12.3); Monocytes Absolute Auto 0.5 X10*3/uL (0.1-1.2); Monocytes Percent Auto 7.4 % (2-11); Neutrophils Absolute Auto 4.4 x10*3/uL (2.0-8.3); Neutrophils Percent Auto 64.6 % (45-73); Platelet Count 220 X10*3/uL (160-400); Red Blood Count 4.95 X10*6/uL (4.20-5.50); Red Cell Distribution Width 15.1 % (11.0-16.0); White Blood Count 6.8 X10*3/uL (4.8-10.8)
[2023-06-25 14:02] LABS: Estimated Average Glucose 154 mg/dL
[2023-06-25 14:10] LABS: Appearance Urine Clear; Color Urine Yellow; Glucose Urine UA Negative (Negative); Leukocyte Esterase Urine Trace (Negative); Nitrite Urine Negative (Negative); PH 5.5 (5.0-9.0); UMIC TRIGGER UACC YES; Urine Blood Negative (Negative); Urine Ketones Negative (Negative); Urine Protein Negative (Neg-Trace)
[2023-06-25 14:15] LABS: Bacteria Urine None Seen (None Seen); Hyaline Casts Urine 0-2 /LPF (0-2); RBC Urine 0-2 /HPF (0-2); Squamous Epithelial Cell Urine 0-2 /HPF (0-2); WBC Urine 0-5 /HPF (0-5)
[2023-06-25 14:15] LABS: Alanine Aminotransferase 20 U/L (0-31); Alkaline Phosphatase 63 U/L (39-117); Anion Gap 17 (12-20); Aspartate Amino Transferase 24 U/L (5-31); Bilirubin Total 0.5 mg/dL (0.0-1.0); Blood Urea Nitrogen 16 mg/dL (9-16); Calcium 9.8 mg/dL (8.4-10.2); Carbon Dioxide 26 mmol/L (22-29); Chloride 100 mmol/L (96-108); Cholesterol 148 mg/dL (<200); Estimated Glomerular Filt Rate > 60; Glucose Fasting 84 mg/dL (60-99); HDL Cholesterol 26 mg/dL (>40); LDL Cholesterol Calculated 88 mg/dL (<100); Potassium 4.4 mmol/L (3.3-5.1); Sodium 139 mmol/L (135-145); Total Protein 7.1 g/dL (6.5-8.0); Triglycerides 172 mg/dL (<150)
[2023-06-25 14:27] LABS: Creatinine Urine 98.04 mg/dL; Microalbumin Urine < 5.0 mg/L
[2023-06-25 14:32] LABS: Folate 14.6 ng/mL (> or = 4.0); Vitamin B12 389 pg/mL (200-900)
[2023-06-25 14:33] LABS: Vitamin D 25-OH Total 90.5 ng/mL (>30)
== END 2023-06-25 10:28 | disposition home or self-care (01) ==
LOC: HO.HMGCLDS 10:27
PROVIDERS: PCP Internal Medicine; Visit Provider Internal Medicine
DX: D64.9 Anemia, unspecified (principal); E78.00 Pure hypercholesterolemia, unspecified; E11.9 Type 2 diabetes mellitus without complications; E55.9 Vitamin D deficiency, unspecified; E53.8 Deficiency of other specified B group vitamins
CPT/HCPCS: 36415; 80053; 80061; 81001; 81003; 82043; 82306; 82570; 82607; 82746; 83036; 84443; 85025

== ENCOUNTER 2023-07-03 15:15 | Outpatient (AMB) | payer MEDICARE, SELFPAY ==
[2023-07-03 15:16] VITALS: BP 102/62; PULSE 78; O2SAT 97; BMI 26.4
--- NOTE | 2023-07-03 15:16 | MHC.PC.OV ---
Vital Signs 07/03/23 15:16 Height 5 ft 11 in Weight 189 lb 0.4 oz BMI 26.4 BP 102/62 Blood Pressure Location Lt brachial Position Sitting Pulse 78 Pulse Source Pulse Oximeter Pulse Oximetry (%) 97 Oxygen Delivery Method Room Air Intake Visit Reasons: DM, HTN, hyperlipidemia, lumbar DDD, GERD Staffing Branch Manager Required: No Allergies fluticasone [From FLONASE] Adverse Reaction (Intermediate, Verified 07/03/23 16:00) NAUSEA Medication List - Last Reconciled 07/03/23 by Joselito Almanza MD acyclovir 5% 1 appl topical 6XD 7 days amlodipine-benazepril 5-20 mg 1 cap PO DAILY blood sugar diagnostic 1 strip miscellaneous BID budesonide 32 mcg/actuation 2 sprays intranasal QAM cetirizine 10 mg PO DAILY PRN 90 days cholecalciferol (vitamin D3) 50 mcg PO DAILY insulin glargine (Lantus Solostar U-100 Insulin) 48 units (0.48 mL) subcut QAM 90 days ketoconazole 2% topical lorazepam 0.5 mg PO BID PRN lovastatin 40 mg PO DAILY metformin 1,000 mg (2 x 500 mg) PO BID metoprolol succinate ER 50 mg PO DAILY omeprazole 20 mg PO QAM oxycodone-acetaminophen 5-325 mg 1 tab PO Q8H PRN 7 days pen needle, diabetic (BD Ultra-Fine Wanda Pen Needle) USE DIRECTED sertraline 50 mg PO DAILY 30 days spironolacton-hydrochlorothiaz 25-25 mg 1 tab PO DAILY Tobacco use date assessed: 07/03/23 Fall risk assessment: No Falls in past year Last assessed Fall Risk: 07/03/23 Dental Screening Dental Screen Date: 03/02/23 HPI DM, HTN, hyperlipidemia, lumbar DDD, GERD HPI Details Patient comes in today for her follow up visit States that she feels okay She denies any headaches or dizziness Denies any chest pains, no SOB No nausea/vomiting, no abdominal pain No change in bowel habits noted States that her chronic low back pain and joint pains remain adequately controlled on her current Rx - needs her pain med Rx refilled today Had her follow up labs done last week - to discuss her results [facility] Medical History Allergic rhinitis Seborrheic dermatitis of scalp Overweight (BMI 25.0-29.9) Lumbar degenerative disc disease Vitamin D deficiency GERD without esophagitis Pure hypercholesterolemia Benign essential hypertension Chronic kidney disease (CKD), stage II (mild) Type 2 diabetes mellitus with diabetic chronic kidney disease Surgical History History of hysteroscopy (~11/2005) History of colonoscopy History of hemorrhoidectomy History of tonsillectomy Family History Mother Dementia Emphysema lung Father Emphysema lung Other Family history non-contributory Social History Housing: House Alcohol intake: current Alcohol intake frequency: holidays/special occasions only Alcohol type: wine Patient Tobacco Use Status: Never used Tobacco e-Cigarette/Vaping Use: Never Used Second Hand Smoke Exposure: Yes service: No Current occupational status: retired Cognitive needs: No Hearing needs: No Vision needs: Yes (wear glasses) Questionnaire Thrive Questionnaire Date Thrive assessed: 05/24/23 AUDIT C Alcohol Use Questionnaire (AUDIT-C) 1. How often do you have a drink containing alcohol?: Monthly or less 2. How many drinks containing alcohol do you have on a typical day when you are drinking?: 1 or 2 3. How often do you have six or more drinks on one occasion?: Never Total Score: 1 Score Reviewed/Action Taken: Yes CHANDANA-7 AMB Questionnaire CHANDANA-7 Date CHANDANA - 7 assessed: 03/02/23 Source: Developed by Drs. Michi Pérez, Myranda Harrison, Deonte Bowser and colleagues, with an educational patric from [employer]. Review of Systems Const Denies chills, Denies fatigue, Denies fever(s) and Denies headache(s) ENT Denies dysphagia, Denies dizziness, Denies otalgia, Denies headache(s), Denies neck pain, Denies odynophagia and Denies sore throat Card Denies chest pain, Denies palpitations and Denies dyspnea Resp Denies chest congestion, Denies cough, Denies dyspnea and Denies wheezing GI Denies abdominal pain, Denies constipation, Denies dysphagia, Denies heartburn, Denies diarrhea, Denies nausea, Denies odynophagia and Denies vomiting Denies difficulty voiding, Denies nocturia, Denies dysuria and Denies urinary urgency Musc Reports back pain (left-sided sciatica - stable lately) and Denies neck pain Skin/Breast Denies rash Neuro Denies dizziness and Denies headache(s) Endo Denies fatigue and Denies palpitations Aller/Immun Denies wheezing Physical exam (Primary Care) Vital Signs: Last Vital Signs Pulse 78 07/03/23 15:16 BP 102/62 07/03/23 15:16 Pulse Ox 97 07/03/23 15:16 Oxygen Delivery Method Room Air 07/03/23 15:16 BMI result Body Mass Index 26.4 Tobacco/Smoking Status: Tobacco use Status Tobacco use date assessed 07/03/23 07/03/23 15:17 Patient Tobacco Use Status Never used Tobacco 07/03/23 15:17 e-Cigarette/Vaping Use Never Used 07/03/23 15:17 Thrive Assessment: Date of Thrive Assessment Date Thrive assessed 05/24/23 07/03/23 15:17 Const General: no acute distress and alert HENMT Ears: TM's normal bilaterally and EAC's normal Throat: Yes posterior oropharynx normal and Yes tonsils normal (no TP congestion noted) Neck Neck: Yes no lymphadenopathy and Yes supple Thyroid: Thyroid normal Resp Auscultation: clear to auscultation bilaterally, no rales and no wheezes Cardio Rate: regular rate Rhythm: regular rhythm Heart sounds: no murmurs GI Palpation (GI): Soft to palpation and nontender Auscultation: normal bowel sounds General: Yes no CVA tenderness Back/Spine/Pelvis Back: no CVA tenderness Thoracic/Lumbar Spine: lumbar spinal tenderness Sacroiliac joints: on the left tender to palpation (mild) Skin Rashes: no rashes Extrem General: Yes no clubbing, cyanosis or edema Results Reviewed Results Reviewed: Laboratory Tests 06/25/23 06/25/23 11:00 11:03 WBC 6.8 Hgb 12.9 Hct 39.6 Plt Count 220 Sodium 139 Potassium 4.4 D Creatinine 0.83 Estimated GFR > 60 Fasting Glucose 84 Hemoglobin A1c % 7.0 H Calcium 9.8 AST 24 ALT 20 Triglycerides 172 H Cholesterol 148 LDL Cholesterol, Calc 88 HDL Cholesterol 26 L Vitamin B12 389 25-OH Vitamin D Total 90.5 TSH 1.20 Ur Specific [place] 1.010 Urine Protein Negative Urine Glucose (UA) Negative Urine Blood Negative Urine Nitrite Negative Ur Leukocyte Esterase Trace H Assessment and Plan Assessment & Plan (1) Pure hypercholesterolemia: Code(s): E78.00 - Pure hypercholesterolemia, unspecified Plan: Results of her labs done last week reviewed and discussed with patient Reinforced low cholesterol diet Continue Lovastatin 40 mg QD Will recheck her labs and fasting lipids in 4 months for follow-up (2) Type 2 diabetes mellitus with diabetic chronic kidney disease: Code(s): E11.22 - Type 2 diabetes mellitus with diabetic chronic kidney disease Qualifiers: Chronic kidney disease stage: stage 2 (mild) Diabetes mellitus budget coordinator insulin use: without budget coordinator use Qualified Code(s): E11.22 - Type 2 diabetes mellitus with diabetic chronic kidney disease; N18.2 - Chronic kidney disease, stage 2 (mild) Plan: Her HgbA1c is now at 7.0% on her labs done last week (was at 7.3% a few months ago) - goal is < 7.0% Reinforced diabetic diet Continue Metformin 500 mg 2 tablets BID and Lantus 48 units QD (3) Benign essential hypertension: Code(s): I10 - Essential (primary) hypertension Plan: Reinforced low-sodium diet -? goal is systolic BP of at least 130 to 140 mm or less Continue Amlodipine -Benazepril 5-20 mg QD, Metoprolol ER 50 mg QD and Spironolactone-HCTZ 25-25 QD (4) Chronic kidney disease (CKD), stage II (mild): Code(s): N18.2 - Chronic kidney disease, stage 2 (mild) Plan: Stable -? will continue to monitor her GFR and renal function regularly (5) GERD without esophagitis: Code(s): K21.9 - Gastro-esophageal reflux disease without esophagitis Plan: Dietary restrictions reinforced Continue Omeprazole 20 mg QD (6) Lumbar degenerative disc disease: Code(s): M51.36 - Other intervertebral disc degeneration, lumbar region Plan: Reinforced activity and weight lifting restrictions Continue Oxycodone-Acetaminophen 5-325 mg every 8 hours only as needed - Rx refilled (7) Vitamin D deficiency: Code(s): E55.9 - Vitamin D deficiency, unspecified Plan: Continue Vitamin D3 2000 units QD (8) Overweight (BMI 25.0-29.9): Code(s): E66.3 - Overweight Plan: Reinforced diet/exercise as tolerated/lose weight Plan Follow up in 4 months Orders: Orders Lipid Panel 4 Months E78.00 - Pure hypercholesterolemia, unspecified UA CC w/rflx Micro + Cult 4 Months R30.0 - Dysuria Hemoglobin A1c 4 Months E11.9 - Type 2 diabetes mellitus without complications Complete Blood Count Auto Diff 4 Months D64.9 - Anemia, unspecified Comprehensive [place]. Panel Fast 4 Months E78.00 - Pure hypercholesterolemia, unspecified TSH reflex Free T4 4 Months E78.00 - Pure hypercholesterolemia, unspecified Vitamin D 25-OH Total 4 Months E55.9 - Vitamin D deficiency, unspecified Medications: Refilled oxycodone-acetaminophen 5-325 mg 1 tab PO Q8H PRN 21 tabs 0RF severe pain 7 days M51.36 - Other intervertebral disc degeneration, lumbar region Coding Level of Care Code Est Pt Level 4 (93462) Diagnoses Pure hypercholesterolemia E78.00 Type 2 diabetes mellitus with stage 2 chronic kidney disease, without long-term current use of insulin E11.22; N18.2 Chronic kidney disease stage: stage 2 (mild) Diabetes mellitus skilled nursing insulin use: without budget coordinator use Benign essential hypertension I10 Chronic kidney disease (CKD), stage II (mild) N18.2 GERD without esophagitis K21.9 Lumbar degenerative disc disease M51.36 Vitamin D deficiency E55.9 Overweight (BMI 25.0-29.9) E66.3
== END 2023-07-03 16:32 | disposition home or self-care (01) ==
PROVIDERS: PCP Internal Medicine; Visit Provider Internal Medicine
DX: E78.00 Pure hypercholesterolemia, unspecified (principal); E11.22 Type 2 diabetes mellitus with diabetic chronic kidney disease; N18.2 Chronic kidney disease, stage 2 (mild); I12.9 Hypertensive chronic kidney disease with stage 1 through stage 4 chronic kidney disease, or unspecified chronic kidney disease; K21.9 Gastro-esophageal reflux disease without esophagitis; M51.36 Other intervertebral disc degeneration, lumbar region; E55.9 Vitamin D deficiency, unspecified; E66.3 Overweight
CPT/HCPCS: 99214

== ENCOUNTER 2023-11-03 09:01 | Outpatient (REF) | payer MEDICARE, SELFPAY ==
[2023-11-03 11:01] LABS: Appearance Urine Clear; Color Urine Yellow; Glucose Urine UA Negative (Negative); Leukocyte Esterase Urine Trace (Negative); Nitrite Urine Negative (Negative); PH 5.5 (5.0-9.0); UMIC TRIGGER UACC YES; Urine Blood Negative (Negative); Urine Ketones Negative (Negative); Urine Protein Negative (Neg-Trace)
[2023-11-03 11:05] LABS: Bacteria Urine None Seen (None Seen); Hyaline Casts Urine 0-2 /LPF (0-2); RBC Urine 0-2 /HPF (0-2); Squamous Epithelial Cell Urine 0-2 /HPF (0-2); WBC Urine 0-5 /HPF (0-5)
[2023-11-03 11:21] LABS: MANUAL DIFF FLAG NO
[2023-11-03 11:30] LABS: Basophils Percent Auto 0.5 % (0-2); Eosinophils Absolute Auto 0.3 X10*3/uL (0.0-0.4); Hematocrit 38.8 % (37.0-47.0); Hemoglobin 12.6 g/dl (12.0-16.0); Imm Gran Abs Auto 0.02 X10*3/uL (0.00-0.03); Imm Gran Pct Auto 0.3 % (0.0-0.4); Lymphocytes Absolute Auto 1.8 X10*3/uL (1.2-4.9); Lymphocytes Percent Auto 27.1 % (20-40); Mean Corpuscular HGB Conc 32.5 g/dl (31.0-35.0); Mean Corpuscular Hemoglobin 26.2 pg (27.0-33.0); Mean Corpuscular Volume 80.7 fL (80.0-98.0); Mean Platelet Volume 9.2 fL (9.4-12.3); Monocytes Absolute Auto 0.5 X10*3/uL (0.1-1.2); Monocytes Percent Auto 7.2 % (2-11); Neutrophils Percent Auto 60.9 % (45-73); Platelet Count 218 X10*3/uL (160-400); Red Blood Count 4.81 X10*6/uL (4.20-5.50); Red Cell Distribution Width 14.2 % (11.0-16.0); White Blood Count 6.5 X10*3/uL (4.8-10.8)
[2023-11-03 11:55] LABS: Alanine Aminotransferase 22 U/L (0-31); Albumin Level 3.8 g/dL (3.5-5.0); Alkaline Phosphatase 80 U/L (39-117); Anion Gap 12 (12-20); Aspartate Amino Transferase 25 U/L (5-31); Bilirubin Total 0.4 mg/dL (0.0-1.0); Blood Urea Nitrogen 21 mg/dL (9-16); Calcium 9.2 mg/dL (8.4-10.2); Carbon Dioxide 27 mmol/L (22-29); Chloride 104 mmol/L (96-108); Cholesterol 136 mg/dL (<200); Estimated Glomerular Filt Rate 45; Glucose Fasting 132 mg/dL (60-99); HDL Cholesterol 25 mg/dL (>40); LDL Cholesterol Calculated 80 mg/dL (<100); Potassium 3.9 mmol/L (3.3-5.1); Sodium 139 mmol/L (135-145); Total Protein 6.8 g/dL (6.5-8.0); Triglycerides 158 mg/dL (<150)
[2023-11-03 11:57] LABS: TSH reflex Free T4 1.76 uIU/mL (0.32-4.0); Vitamin D 25-OH Total 85.6 ng/mL (>30)
[2023-11-03 12:10] LABS: Estimated Average Glucose 154 mg/dL; Total Hemoglobin (HGBA1C) 3158.1207 umol/L
== END 2023-11-03 09:02 | disposition home or self-care (01) ==
LOC: HO.HMGCLDS 09:01
PROVIDERS: PCP Internal Medicine; Visit Provider Internal Medicine
DX: D64.9 Anemia, unspecified (principal); E11.9 Type 2 diabetes mellitus without complications; E55.9 Vitamin D deficiency, unspecified; E78.00 Pure hypercholesterolemia, unspecified
CPT/HCPCS: 36415; 80053; 80061; 81001; 81003; 82306; 83036; 84443; 85025

== ENCOUNTER 2023-11-05 14:46 | Outpatient (AMB) | payer MEDICARE, SELFPAY ==
[2023-11-05 14:58] VITALS: BP 116/64; PULSE 77; O2SAT 98; BMI 26.3
--- NOTE | 2023-11-05 14:58 | MHC.PC.OV ---
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: No Accompanied by: Self / Same As Patient Allergies fluticasone [From FLONASE] Adverse Reaction (Intermediate, Verified 11/05/23 15:36) NAUSEA Medication List - Last Reconciled 11/05/23 by Joselito Almanza MD acyclovir 5% 1 appl topical 6XD 7 days amlodipine-benazepril 5-20 mg 1 cap PO DAILY blood sugar diagnostic 1 strip miscellaneous BID budesonide 32 mcg/actuation 2 sprays intranasal QAM cetirizine 10 mg PO DAILY PRN 90 days cholecalciferol (vitamin D3) 50 mcg PO DAILY insulin glargine (Lantus Solostar U-100 Insulin) 48 units (0.48 mL) subcut QAM 90 days ketoconazole 2% topical lorazepam 0.5 mg PO BID PRN lovastatin 40 mg PO DAILY metformin 1,000 mg (2 x 500 mg) PO BID metoprolol succinate ER 50 mg PO DAILY omeprazole 20 mg PO QAM oxycodone-acetaminophen 5-325 mg 1 tab PO Q8H PRN 7 days pen needle, diabetic (BD Ultra-Fine Wanda Pen Needle) USE DIRECTED sertraline 50 mg PO DAILY 30 days spironolacton-hydrochlorothiaz 25-25 mg 1 tab PO DAILY Tobacco use date assessed: 11/05/23 Fall risk assessment: No Falls in past year Last assessed Fall Risk: 11/05/23 Dental Screening Dental Screen Date: 11/05/23 Did you have a dental visit in the last 12 months?: Yes Did you have a dental problem in the last 6 months where you did not have access to dental care?: No Was dental information given to patient?: Patient has dentist HPI 4mof\u HPI Details Patient comes in today for her follow up visit States that she feels okay She denies any headaches or dizziness Denies any chest pains, no increased SOB No nausea/vomiting, no abdominal pain No change in bowel habits noted States that her chronic low back pain and joint pains remain adequately controlled on her current Rx She had her follow up labs done a couple of days ago - to discuss her results [facility] Medical History Allergic rhinitis Seborrheic dermatitis of scalp Overweight (BMI 25.0-29.9) Lumbar degenerative disc disease Vitamin D deficiency GERD without esophagitis Pure hypercholesterolemia Benign essential hypertension Chronic kidney disease (CKD), stage II (mild) Type 2 diabetes mellitus with diabetic chronic kidney disease Surgical History History of hysteroscopy (~11/2005) History of colonoscopy History of hemorrhoidectomy History of tonsillectomy Family History Mother Dementia Emphysema lung Father Emphysema lung Other Family history non-contributory Social History Housing: House Alcohol intake: current Alcohol intake frequency: holidays/special occasions only Alcohol type: wine Patient Tobacco Use Status: Never used Tobacco e-Cigarette/Vaping Use: Never Used Second Hand Smoke Exposure: Yes service: No Current occupational status: retired Cognitive needs: No Hearing needs: No Vision needs: Yes (wear glasses) Questionnaire PHQ-9 Over the last 2 weeks, how often have you been bothered by any of the following problems? 1. Little interest or pleasure in doing things: not at all 2. Feeling down, depressed, or hopeless: several days (on medication) 3. Trouble falling or staying asleep, or sleeping too much: not at all 4. Feeling tired or having little energy: not at all 5. Poor appetite or overeating: not at all 6. Feeling bad about yourself - or that you are a failure or have let yourself or your family down: not at all 7. Trouble concentrating on things, such as reading the newspaper or watching television: not at all 8. Moving or speaking so slowly that other people could have noticed. Or the opposite - being so fidgety or restless that you have been moving around a lot more than usual: not at all 9. Thoughts that you would be better off or of hurting yourself in some way: not at all Total score: 1 Depression Screening Interpretation: Negative Depression Screening Done: Yes 88545 - PHQ-9 Billing: Yes Source: Developed by Drs. Michi Pérez, Myranda Harrison, Deonte Bowser and colleagues, with an educational patric from [employer]. Thrive Questionnaire Date Thrive assessed: 11/05/23 I am a: Patient What is your living situation today?: I have a steady place to live Within the past 12 months, did the food you bought not last and you didn't have the money to get more?: Never true Within the past 12 months, did you worry whether your food would run out before you got money to buy more?: Never true Do you have trouble paying for medicines?: No Do you have trouble getting transportation to medical appointments?: No Do you have trouble paying your heating and electricity bill?: No Do you have trouble taking care of your child, family member or friend?: No Do you have trouble with day-to-day activities such as bathing, preparing meals, shopping, managing finances, etc.?: No Are you currently unemployed and looking for a job?: No Are you interested in more education?: No Please select the resources that you would like help with: None Currently or been in a relationship where the following occur: No concerns reported THRIVE Score: 0 AUDIT C Alcohol Use Questionnaire (AUDIT-C) 1. How often do you have a drink containing alcohol?: Monthly or less 2. How many drinks containing alcohol do you have on a typical day when you are drinking?: 1 or 2 3. How often do you have six or more drinks on one occasion?: Never Total Score: 1 Score Reviewed/Action Taken: Yes CHANDANA-7 AMB Questionnaire CHANDANA-7 Date CHANDANA - 7 assessed: 11/05/23 Feeling nervous, anxious, or on edge: 0 = Not at all Not being able to stop or control worryin = Not at all Worrying too much about different things: 0 = Not at all Trouble relaxin = Not at all Being so restless that it is hard to sit still: 0 = Not at all Becoming easily annoyed or irritable: 0 = Not at all Feeling afraid as if something awful might happen: 0 = Not at all Total CHANDANA-7 score (0-4 normal; 5-9 mild; 10-14 moderate; 15-21 severe): 0 Source: Developed by Drs. Michi Pérez, Myranda Harrison, Deonte Bowser and colleagues, with an educational patric from [employer]. Review of Systems Const Denies fatigue, Denies fever(s) and Denies headache(s) ENT Denies dysphagia, Denies dizziness, Denies otalgia, Denies headache(s), Denies neck pain, Denies odynophagia and Denies sore throat Card Denies chest pain, Denies palpitations and Denies dyspnea Resp Denies chest congestion, Denies cough and Denies dyspnea GI Denies abdominal pain, Denies constipation, Denies dysphagia, Denies heartburn, Denies diarrhea, Denies nausea, Denies odynophagia and Denies vomiting Denies difficulty voiding, Denies nocturia, Denies dysuria and Denies urinary urgency Musc Reports back pain (left-sided sciatica - stable lately), Reports arthralgias (involving multiple joints) and Denies neck pain Skin/Breast Denies rash Neuro Denies dizziness and Denies headache(s) Endo Denies fatigue and Denies palpitations Physical exam (Primary Care) Vital Signs: Last Vital Signs Pulse 77 11/05/23 14:58 BP 116/64 11/05/23 14:58 Pulse Ox 98 11/05/23 14:58 Oxygen Delivery Method Room Air 11/05/23 14:58 BMI result Body Mass Index 26.3 Tobacco/Smoking Status: Tobacco use Status Tobacco use date assessed 11/05/23 11/05/23 15:02 Patient Tobacco Use Status Never used Tobacco 11/05/23 15:02 e-Cigarette/Vaping Use Never Used 11/05/23 15:02 PHQ-9: PHQ-9 Score PHQ-9: Total score 1 11/05/23 15:37 Depression Screening Interpretation: Negative Thrive Assessment: Date of Thrive Assessment Date Thrive assessed 11/05/23 11/05/23 15:02 Currently or been in a relationship where the following occur: No concerns reported Const General: no acute distress and alert HENMT Ears: TM's normal bilaterally and EAC's normal Throat: Yes posterior oropharynx normal and Yes tonsils normal (no TP congestion noted) Neck Neck: Yes no lymphadenopathy and Yes supple Thyroid: Thyroid normal Resp Auscultation: clear to auscultation bilaterally, no rales and no wheezes Cardio Rate: regular rate Rhythm: regular rhythm Heart sounds: no murmurs GI Palpation (GI): Soft to palpation and nontender Auscultation: normal bowel sounds General: Yes no CVA tenderness Back/Spine/Pelvis Back: no CVA tenderness Thoracic/Lumbar Spine: lumbar spinal tenderness Sacroiliac joints: on the left tender to palpation (mild) Skin Rashes: no rashes Extrem General: Yes no clubbing, cyanosis or edema Results Reviewed Results Reviewed: Laboratory Tests 06/25/23 11/03/23 11:00 09:09 WBC 6.5 Hgb 12.6 Hct 38.8 Plt Count 218 Sodium 139 Potassium 3.9 Creatinine 1.17 Estimated GFR 45 Fasting Glucose 132 H Hemoglobin A1c % 7.0 H Calcium 9.2 D AST 25 ALT 22 Triglycerides 158 H Cholesterol 136 LDL Cholesterol, Calc 80 HDL Cholesterol 25 L Vitamin B12 389 25-OH Vitamin D Total 85.6 TSH 1.76 Ur Specific [place] 1.020 Urine Protein Negative Urine Glucose (UA) Negative Urine Blood Negative Urine Nitrite Negative Ur Leukocyte Esterase Trace H Assessment and Plan Assessment & Plan (1) Pure hypercholesterolemia: Code(s): E78.00 - Pure hypercholesterolemia, unspecified Plan: Results of her labs done a couple of days ago reviewed and discussed with patient Reinforced low cholesterol diet Continue Lovastatin 40 mg QD Will recheck her labs and fasting lipids in 4 months for follow-up (2) Type 2 diabetes mellitus with diabetic chronic kidney disease: Code(s): E11.22 - Type 2 diabetes mellitus with diabetic chronic kidney disease Qualifiers: Chronic kidney disease stage: stage 2 (mild) Diabetes mellitus salvage determiner insulin use: without salvage determiner use Qualified Code(s): E11.22 - Type 2 diabetes mellitus with diabetic chronic kidney disease; N18.2 - Chronic kidney disease, stage 2 (mild) Plan: Her HgbA1c remains unchanged at 7.0% on her labs done a couple of days ago (was also at 7.0% a few months ago) - goal is < 7.0% Reinforced diabetic diet Continue Metformin 500 mg 2 tablets BID and Lantus 48 units QD (3) Benign essential hypertension: Code(s): I10 - Essential (primary) hypertension Plan: Reinforced low-sodium diet -? goal is systolic BP of at least 130 to 140 mm or less Continue Amlodipine -Benazepril 5-20 mg QD, Metoprolol ER 50 mg QD and Spironolactone-HCTZ 25-25 QD (4) Chronic kidney disease (CKD), stage II (mild): Code(s): N18.2 - Chronic kidney disease, stage 2 (mild) Plan: Have advised patient that GFR and serum creatinine levels have declined again from previous on her recent labs - is likely due to hypooperfusion/dehydration She admits to drinking a lot of tea, which can act as a diuretic Reinforced increased oral fluids If her renal function does not improve over the next few months, may need to consider lowering her diuretic dose or adjusting her dose of Metformin She is also reminded to completely avoid all NSAIDs Will have her recheck her labs in 4 months for follow up (5) GERD without esophagitis: Code(s): K21.9 - Gastro-esophageal reflux disease without esophagitis Plan: Dietary restrictions reinforced Continue Omeprazole 20 mg QD (6) Lumbar degenerative disc disease: Code(s): M51.36 - Other intervertebral disc degeneration, lumbar region Plan: Reinforced activity and weight lifting restrictions Continue Oxycodone-Acetaminophen 5-325 mg every 8 hours only as needed (7) Vitamin D deficiency: Code(s): E55.9 - Vitamin D deficiency, unspecified Plan: Continue Vitamin D3 2000 units QD (8) Overweight (BMI 25.0-29.9): Code(s): E66.3 - Overweight Plan: Reinforced diet/exercise as tolerated/lose weight Plan Follow up in 4 months Orders: Orders Vitamin D 25-OH Total 4 Months E55.9 - Vitamin D deficiency, unspecified Complete Blood Count Auto Diff 4 Months D64.9 - Anemia, unspecified Lipid Panel 4 Months E78.00 - Pure hypercholesterolemia, unspecified Comprehensive [place]. Panel Fast 4 Months E78.00 - Pure hypercholesterolemia, unspecified TSH reflex Free T4 4 Months E78.00 - Pure hypercholesterolemia, unspecified UA CC w/rflx Micro + Cult 4 Months R30.0 - Dysuria Hemoglobin A1c 4 Months E11.9 - Type 2 diabetes mellitus without complications Microalbumin, Random (w Creat) 4 Months E11.9 - Type 2 diabetes mellitus without complications Coding Level of Care Code Est Pt Level 4 (46573) Diagnoses Pure hypercholesterolemia E78.00 Type 2 diabetes mellitus with stage 2 chronic kidney disease, without long-term current use of insulin E11.22; N18.2 Chronic kidney disease stage: stage 2 (mild) Diabetes mellitus senior care insulin use: without salvage determiner use Benign essential hypertension I10 Chronic kidney disease (CKD), stage II (mild) N18.2 GERD without esophagitis K21.9 Lumbar degenerative disc disease M51.36 Vitamin D deficiency E55.9 Overweight (BMI 25.0-29.9) E66.3
== END 2023-11-05 16:02 | disposition home or self-care (01) ==
PROVIDERS: PCP Internal Medicine; Visit Provider Internal Medicine
DX: E78.00 Pure hypercholesterolemia, unspecified (principal); E11.22 Type 2 diabetes mellitus with diabetic chronic kidney disease; N18.2 Chronic kidney disease, stage 2 (mild); I12.9 Hypertensive chronic kidney disease with stage 1 through stage 4 chronic kidney disease, or unspecified chronic kidney disease; K21.9 Gastro-esophageal reflux disease without esophagitis; M51.36 Other intervertebral disc degeneration, lumbar region; E55.9 Vitamin D deficiency, unspecified; E66.3 Overweight

== ENCOUNTER → 2023-11-05 14:46 | Outpatient (BNVA) | payer MEDICARE, SELFPAY | PROVIDERS: PCP Internal Medicine; Visit Provider Internal Medicine | DX: E78.00 Pure hypercholesterolemia, unspecified (principal); I12.9 Hypertensive chronic kidney disease with stage 1 through stage 4 chronic kidney disease, or unspecified chronic kidney disease; E11.22 Type 2 diabetes mellitus with diabetic chronic kidney disease; N18.2 Chronic kidney disease, stage 2 (mild); K21.9 Gastro-esophageal reflux disease without esophagitis; E55.9 Vitamin D deficiency, unspecified; E66.3 Overweight; M51.36 Other intervertebral disc degeneration, lumbar region | CPT/HCPCS: 99212 ==

== ENCOUNTER 2023-11-19 12:51 | Outpatient (REF) | payer MEDICARE, SELFPAY ==
[2023-11-19 17:07] LABS: Influenza A PCR NEGATIVE (Negative); Influenza B PCR NEGATIVE (Negative); Resp Syncy Virus RNA Qual PCR NEGATIVE (Negative); SARS COV2 PCR INHOUSE NEGATIVE (Negative)
== END 2023-11-19 12:52 | disposition home or self-care (01) ==
LOC: HO.LAB 12:51
PROVIDERS: PCP Internal Medicine; Visit Provider Physician Assistant
DX: J01.00 Acute maxillary sinusitis, unspecified (principal); H61.21 Impacted cerumen, right ear
CPT/HCPCS: 0241U; 69210; 99212

== ENCOUNTER 2023-11-19 12:51 | Outpatient (AMB) | payer MEDICARE, SELFPAY ==
--- NOTE | 2023-11-19 12:52 | AM.OFFWIN_ITS ---
Intake Vital Signs 11/19/23 13:12 Height 5 ft 11 in Weight 187 lb BMI 26.1 BP 112/70 Blood Pressure Location Rt brachial Position Sitting Pulse 68 Pulse Source Pulse Oximeter Pulse Oximetry (%) 98 Oxygen Delivery Method Room Air Intake Visit Reasons: EP ? sinus infection Intake Note: Patient here for sinus infection that has been present since Sunday night. Patient Tobacco Use Status: Never used Tobacco Allergies fluticasone [From FLONASE] Adverse Reaction (Intermediate, Verified 11/19/23 13:14) NAUSEA Do you need a note to return to daycare/school/sports/work: No HPI HPI Comments History of Present Illness Details Patient is a 73-year-old female complaining of left-sided sinus pain, facial pain and ear pain x3 days. She denies any fevers, cough, shortness of breath, headache. She tells me she did take some aspirin and that helped the pain a little bit. She also took one of her 's 500mg azithromycin that he is on for his COPD and it made her throw up. She states she has chronic ear issues with swimmer's ear and has dry ears and she usually uses a steroid drop but she did not use them today. 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 Surgical History History of hysteroscopy (~11/2005) History of colonoscopy History of hemorrhoidectomy History of tonsillectomy Family History Mother Dementia Emphysema lung Father Emphysema lung Other Family history non-contributory Social History Housing: House Alcohol intake: current Alcohol intake frequency: holidays/special occasions only Alcohol type: wine Patient Tobacco Use Status: Never used Tobacco e-Cigarette/Vaping Use: Never Used Second Hand Smoke Exposure: Yes service: No Current occupational status: retired Cognitive needs: No Hearing needs: No Vision needs: Yes (wear glasses) Review of Systems Const All systems reviewed & are unremarkable except as noted in HPI and below Physical Exam Vital Signs: Last Vital Signs Pulse 68 11/19/23 13:12 BP 112/70 11/19/23 13:12 Pulse Ox 98 11/19/23 13:12 Oxygen Delivery Method Room Air 11/19/23 13:12 BMI result Body Mass Index 26.1 Const General: cooperative, healthy appearing, comfortable and no acute distress Orientation/consciousness: patient oriented x3 Limitations: no limitations HEENT Head: Yes normal to inspection Ears: hearing grossly normal bilaterally, external ears normal, TM normal on the left, mastoids normal and unable to visualize TM (Cerumen impaction) on the right General nose exam: Normal external nose present, Normal nares present and No nasal discharge present Face and sinus: Yes normal facial exam and Yes sinus tenderness (Maxillary left side) Mouth: Normal oral and palatal mucosa present and moist mucous membranes Throat: Yes tonsils normal, Yes uvula midline and Yes posterior oropharynx abnormal (Erythema) Eyes General: appearance normal, both eyes and all related structures Neck Neck: Yes normal visual inspection Resp Effort & Inspection: normal respiratory effort, able to speak in complete sentences, no respiratory distress, not tachypneic, no tripod positioning and no use of accessory muscles Skin General skin exam: no rashes or lesions noted Neuro General: patient oriented x3 Extrem General: Yes normal to inspection and Yes no clubbing, cyanosis or edema Office Procedures Cerumen Removal Details: Tried to remove cerumen with a curette but could not get all of it so we did need to irrigate the ear as well and still some remains [id number] also on the right side From which ear canal was the cerumen removed: right Removal: irrigation and otoscope w/curette Notes: patient tolerated procedure well and no complications [id number] Wax Removal by Spoon/Curette Assessment & Plan Assessment & Plan (1) Sinusitis, acute, maxillary: Code(s): J01.00 - Acute maxillary sinusitis, unspecified Qualifiers: Recurrence: non-recurrent Qualified Code(s): J01.00 - Acute maxillary sinusitis, unspecified Plan: Recommended patient use a Neti pot with distilled water as well as a nasal spray. Educated patient that most sinus infections are viral. (2) Impacted cerumen of right ear: Code(s): H61.21 - Impacted cerumen, right ear Plan: Recommended patient use Debrox drops with the next 4-5 nights for removal. Plan See above Orders: Orders SARS-CoV2/FLU/RSV Today J01.00 - Acute maxillary sinusitis, unspecified, R09.89 - Other specified symptoms and signs involving the circulatory and respiratory systems Coding Level of Care Code Est Pt Level 4 (96367) Diagnoses Acute non-recurrent maxillary sinusitis J01.00 Recurrence: non-recurrent Impacted cerumen of right ear H61.21 CPT Codes Office Procedure - CPT: 47836-Vxx Wax Removal by Spoon/Curette ([id number])
[2023-11-19 13:12] VITALS: BP 112/70; PULSE 68; O2SAT 98; BMI 26.1
== END 2023-11-19 14:11 | disposition home or self-care (01) ==
PROVIDERS: PCP Internal Medicine; Visit Provider Physician Assistant
DX: J01.00 Acute maxillary sinusitis, unspecified (principal); H61.21 Impacted cerumen, right ear

== ENCOUNTER 2024-03-04 09:33 | Outpatient (REF) | payer MEDICARE, SELFPAY ==
--- OUTSIDE RECORDS SUMMARY | 2024-03-04 10:29 | XMS_ITS | Clinical Summary ---
Author Organization [facility] Facility Address [address] [place] [address] Care Team Providers Care Clerk Television Production Name Role Phone Unavailable Primary Care Provider Unavailabl e Medications metoprolol succinate XL (TOPROL XL) 50 MG 24 hr tablet TAKE 1 TABLET DAILY 90 tablet 3 10/23/2021 Active Encounters Date Type Department Care Team Description 12/24/2023 Orders Only [facility] [address] [place] [address] [address] [place] [address] Tony Coombs MD from Last 3 Months Social History Tobacco Use Types Packs/Day Years Used Date Smoking Tobacco: Never Assessed Comments Unknown Sex and Gender Information Value Date Recorded Sex Assigned at Not on file Legal Sex Female 5:04 PM EST Gender Identity Not on file Sexual Orientation Not on file Plan of Treatment Health Maintenance Due Date Last Done Comments Breast Cancer Screening 1950 Pneumococcal Vaccine: 65+ Ye ars (1 of 2 - PCV) 1955 Colorectal Cancer Screening: Annual FOBT 1998 Colorectal Cancer Screening: Colonoscopy 1998 Colorectal Cancer Screening: Sigmoidoscopy 1998 Influenza Vaccine (#1) 2023 Hepatitis B Vaccine Aged Out No longe r eligible based on patient's age to complete this topic Procedures Procedure Name Priority Date/Time Associated Diagnosis Comments PTH, INTACT Routine 12/24/2023 12:59 PM EST VITAMIN D 25 HYDROXY Routine 12/24/2023 12:59 PM EST CREATININE, SERUM Routine 12/24/2023 12: 59 PM EST CALCIUM Routine 12/24/2023 12:59 PM EST ELECTROLYTE PANEL Routine 12/24/2023 12: 59 PM EST BUN Routine 12/24/2023 12:59 PM EST PHOSPHATE ( PHOSPHORUS) Routine 12/24/2023 12:59 PM EST URINE ALBUMIN / CREATININE RATIO Routine 12/24/2023 12:59 PM EST from Last 3 Months Results * (ABNORMAL) Urine Albumin / Creatinine Ratio (12/24/2023 12:59 PM EST) Creatinine, Urine 297.0 mg/dL [facility] Microalbumin Urine Random 56.5(H) 0.0 - 29.0 mg/L [facility] Microalbumin/Cre atinine Ratio 19 <30 mg/g creat [facility] 12/24/2023 12:5 9 PM EST 12/24/2023 2:28 PM EST Tony Coombs MD LAB URINE ORDERABLES Final Resu lt Performing Organization Address City/[facility]/ZIP Co de Phone Number [facility] [address] [place] [address] * Vitamin D 25 Hydroxy (12/24/2023 12:59 PM EST) Vitamin D, 25-OH, Total 49.5 30.0 - 80.0 ng/mL [facility] 12/24/2023 12:5 9 PM EST 12/24/2023 4:18 PM EST us Tony Coombs MD LAB BLOOD ORDERABLES Final Resu lt Performing Organization Address City/[facility]/ZIP Co de Phone Number [facility] [address] [place] [address] * BUN (12/24/2023 12:59 PM EST) BUN 21 5 - 25 mg/dL [facility] 12/24/2023 12:5 9 PM EST 12/24/2023 4:18 PM EST us Tnoy Coombs MD LAB BLOOD ORDERABLES Final Resu lt [facility] [address] [place] [address] * Phosphorus (12/24/2023 12:59 PM EST) Pathologist [facility] Phosphorus 3.4 2.5 - 4.5 mg/dL [facility] 12/24/2023 12:5 9 PM EST 12/24/2023 4:18 PM EST us Tony Coombs MD LAB BLOOD ORDERABLES Final Resu lt Performing Organization Address City/[facility]/ZIP Co de Phone Number [facility] [address] [place] [address] * PTH, Intact (12/24/2023 12:59 PM EST) Pathologist [facility] PTH 48.9 18.5 - 88.0 pcg/mL [facility] 12/24/2023 12:5 9 PM EST 12/24/2023 4:18 PM EST us Tony Coombs MD LAB BLOOD ORDERABLES Final Resu lt Performing Organization Address City/[facility]/ZIP Co de Phone Number [facility] [address] [place] [address] * (ABNORMAL) Creatinine, serum (12/24/2023 12:59 PM EST) Pathologist [facility] Creatinine Serum 1.16(H) 0.50 - 1.10 mg/dL [facility] eGFR 50(L) >=60 mL/min/1. 73m2 [facility] Comment:Calculation based on the?Chronic Kidney Disease Epidemiology Collaboration (CKD-EPI) equation refit?without adjustment for race. 12/24/2023 12:5 9 PM EST 12/24/2023 4:18 PM EST us Tony Coombs MD LAB BLOOD ORDERABLES Final Resu lt Performing Organization Address City/[facility] Co de Phone Number [facility] [address] [place] [address] * Calcium (12/24/2023 12:59 PM EST) Calcium 10.1 8.5 - 10.5 mg/dL [facility] 12/24/2023 12:5 9 PM EST 12/24/2023 4:18 PM EST us Tony Coombs MD LAB BLOOD ORDERABLES Final Resu lt Performing Organization Address [facility] de Phone Number [facility] [address] [place] [address] * Electrolyte panel (12/24/2023 12:59 PM EST) Sodium 137 133 - 145 mmol/L [facility] Potassium 4.2 3.5 - 5.5 mmol/L [facility] Chloride 101 96 - 110 mmol/L [facility] Bicarbonate (CO2) 29 21 - 32 mmol/L [facility] Anion Gap 7 3 - 11 [facility] 12/24/2023 12:5 9 PM EST 12/24/2023 4:18 PM EST us Tony Coombs MD LAB BLOOD ORDERABLES Final Resu lt Performing Organization Address City/[facility] Co de Phone Number [facility] [place] [facility] [address] [place] [address] from Last 3 Months
--- OUTSIDE RECORDS SUMMARY | 2024-03-04 10:29 | XMS_ITS | Clinical Summary ---
Author Organization [address] Address [address] [place] [address] Phone Care Team Providers Care College Sports Coach Name Role Phone Joselito Almanza MD Primary Care Provider [phone] Surgical History Surgery Date Site/Laterality Comments TONSILLECTOMY 1968 PROCEDURE: HISTORICAL TONSILLECTOMY OTHER SURGICAL HISTORY 08/09/04 PROCEDURE: AL HEMORRHOIDECTOMY NTRNL & XTRNL 1 COLUMN/GROUP COLONOSCOPY 03/06/2001 PROCEDURE: AL COLONOSCOPY FLX DX W/COLLJ SPEC WHEN PFRMD; COMMENT: Negative. MULTIPLE TOOTH EXTRACTIONS PROCEDURE: HISTORICAL DENTAL EXTRACTION COLONOSCOPY 08/03/2011 PROCEDURE: AL COLONOSCOPY FLX DX W/COLLJ SPEC WHEN PFRMD; COMMENT: no polyps Medical History Medical History Date Comments Essential hypertension, benign 03/09/2005 D X:Essential hypertension, benign Type II or unspecified type diabetes mellitus without mention of complication, not stated as uncontrolled 03/09/2005 DX:Type II or unspecified ty pe diabetes mellitus without mention of complication, not stated as uncontrolled Esophageal reflux 03/09/2005 DX:Esophageal reflux Mixed hyperlipidemia 04/04/2006 DX:Mixed hy perlipidemia Family History Medical History Relation Name Comments Other: COPD Father Colon cancer Maternal Grandfather Diabetes Maternal Grandmother Other: emphysema Mother Relation Name Status Comments Father Maternal Grandfather Maternal Grandmother Mother Social History Tobacco Use Types Packs/Day Years Used Date Smoking Tobacco: Never Smokeless Tobacco: Never Alcohol Use Standard Drinks/Week Comments Yes 0 (1 standard drink = 0.6 oz pur e alcohol) Sex and Gender Information Value Date Recorded Sex Assigned at Not on file Gender Identity Not on file Sexual Orientation Not on file Job Start Date Occupation Industry Not on file Not on file Not on file Obstetrics History Last Filed Vital Signs Vital Sign Reading Time Taken Comments Blood Pressure 118/78 12/27/2022 1:20 PM EST Pulse 83 12/27/2022 1:20 PM EST Temperature - - Respiratory Rate - - Oxygen Saturation - - Inhaled Oxygen Concentration - - Weight 87.5 kg (192 lb 12.8 oz) 12/27/2022 1:20 PM EST Height - - Body Mass Index - - Plan of Treatment Upcoming Encounters Date Type Department Care Team (Late st Contact Info) Description 04/16/2024 1:00 PM EST Office Visit Nephrology - [address] [phone] Tony Coombs MD [address] [facility] [address] [place] [address] Health Maintenance Due Date Last Done Comments Breast Cancer Screening 1949 Diabetes: Annual Foot Exam 1959 Diabetes: Annual Retina Eye Exam 1959 Hepatitis A Vaccines (1 of 2 - Risk 2-dose series) 1968 Hepatitis B Vaccines (1 of 3 - Risk 3-dose series) 2009 RSV Immunization Patients 60+ Years Old (1 - Risk 60-74 years 1-dose series) 2009 Zoster Vaccines (2 of 3) 03/15/2012 01/19/2012 Pneumococcal Vaccine: 65+ Years (3 of 3 - PPSV23 or PCV20) 07/12/2021 07/12/2016, 08/20/2012, 11/18/2003 Cholesterol Screening (Lipid Panel) 01/21/2022 Colorectal Cancer Screening: Colonoscopy 01/21/2022 Depression Screening 01/21/2022 Diabetes: Blood Sugar Control Test (HGBA1C) 01/21/2022 Falls Risk Assessment 01/21/2022 Hepatitis C Screening 01/21/2022 Osteoporosis Screening (Bone Density Screening) 01/21/2022 Social Influencers of Health Screening 01/21/2022 DTaP,Tdap,and Td Vaccines (4 - Td or Tdap) 09/09/2022 09/09/2012, 07/22/2008, 02/12/1998 COVID-19 Vaccine ( season) 2023 03/03/2023, 11/01/2021, 12/24/2020, Additional history exists Influenza Vaccine (#1) 2023 , 12/05/2021, 11/25/2020, Additional history exists Diabetes: Annual Urine Albumin-Creatinine Ratio (uACR) 12/23/2024 12/24/2023 Diabetes: Annual GFR (Glomerular Filtration Rate) 12/23/2024 12/24/2023 Hypertension/CHF/CAD Annual BMP Blood Test 12/23/2024 12/24/2023 HIB Vaccines Aged Out No longer eligi ble based on patient's age to complete this topic HPV Vaccines Aged Out No longer eligi ble based on patient's age to complete this topic IPV Vaccines Aged Out No longer eligi ble based on patient's age to complete this topic MMR Vaccines Aged Out No longer eligi ble based on patient's age to complete this topic Meningococcal ACWY Vaccine Aged Out N o longer eligible based on patient's age to complete this topic RSV Immunization Patients Under 20 months Aged Out No longer eligible based on patient's age to complete this topic Varicella Vaccines Aged Out No longer eligible based on patient's age to complete this topic Procedures Procedure Name Priority Date/Time Associated Diagnosis Comments MICROALBUMIN CREATININE URINE RATIO Routine 12/24/2023 12:59 PM EST 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, 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) VITAMIN D 25 HYDROXY Routine 12/24/2023 12:59 PM EST 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, 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) PARATHYROID HORMONE INTACT Routine 12/24/2023 12:59 PM EST 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, 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) PHOSPHORUS Routine 12/24/2023 12:59 PM EST 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, 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) CALCIUM Routine 12/24/2023 12:59 PM EST 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, 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) ELECTROLYTE PANEL Routine 12/24/2023 12: 59 PM EST 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, 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) CREATININE, SERUM Routine 12/24/2023 12: 59 PM EST 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, 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) BUN Routine 12/24/2023 12:59 PM EST 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, 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) from Last 3 Months Results * (ABNORMAL) Microalbumin creatinine urine ratio (12/24/2023 12:59 PM EST) Creatinine, Urine 297.0 mg/dL LAB CHEMISTRY METHOD 12/24/2023 3:40 PM EST [facility] Microalb, Ur 56.5(H) 0.0 - 29.0 mg/L LAB CHEMISTRY METHOD 12/24/2023 3:40 PM EST [facility] Microalb/Crea t Ratio 19 <30 mg/g creat LAB CHEMISTRY METHOD 12/24/2023 3:40 PM EST [facility] Urine Urine specimen obtained by clean catch procedure / Unknown Non-blood Collection / Unknown 12/24/2023 12:59 PM EST 12/24/2023 12:59 PM EST Tony Coombs MD LAB URINE ORDERABLES [facility] [address] [place] [address], * (ABNORMAL) Creatinine (12/24/2023 12:59 PM EST) Creatinine 1.16(H) 0.50 - 1.10 mg/dL LAB CHEMISTRY METHOD 12/24/2023 4:54 PM EST [facility] eGFR 50(L) >=60 mL/min/1. 73m2 LAB CHEMISTRY METHOD 12/24/2023 4:54 PM EST [facility] Comment:Calculation based on the??Chronic Kidney Disease Epidemiology Collaboration (CKD-EPI) equation refit??without adjustment for race. Blood Venous blood specimen / Unknown Venipuncture / Unknown 12/24/2023 12:59 PM EST 12/24/2023 12:59 PM EST Tony Coombs MD LAB BLOOD ORDERABLES [facility] [address] [place] [address], * Vitamin D 25 hydroxy (12/24/2023 12:59 PM EST) Vit D, 25-Hydroxy 49.5 30.0 - 80.0 ng/mL LAB CHEMISTRY METHOD 12/24/2023 5:06 PM EST [facility] Blood Venous blood specimen / Unknown Venipuncture / Unknown 12/24/2023 12:59 PM EST 12/24/2023 12:59 PM EST Tony Coombs MD LAB BLOOD ORDERABLES Performing Organization Address City/[facility]/ZIP Co de Phone Number [facility] [address] [place] [address], * BUN (12/24/2023 12:59 PM EST) BUN 21 5 - 25 mg/dL LAB CHEMISTRY METHOD 12/24/2023 4:54 PM EST [facility] Blood Venous blood specimen / Unknown Venipuncture / Unknown 12/24/2023 12:59 PM EST 12/24/2023 12:59 PM EST Tony Coombs MD LAB BLOOD ORDERABLES [facility] [address] [place] [address], [place] [phone] * Phosphorus (12/24/2023 12:59 PM EST) Phosphorus 3.4 2.5 - 4.5 mg/dL LAB CHEMISTRY METHOD 12/24/2023 4:54 PM EST [facility] Blood Venous blood specimen / Unknown Venipuncture / Unknown 12/24/2023 12:59 PM EST 12/24/2023 12:59 PM EST Tony Coombs MD LAB BLOOD ORDERABLES [facility] [address] [place] [address], [place] [phone] * Parathyroid hormone intact (12/24/2023 12:59 PM EST) PTH 48.9 18.5 - 88.0 pcg/mL LAB CHEMISTRY METHOD 12/24/2023 5:07 PM EST [facility] Blood Venous blood specimen / Unknown Venipuncture / Unknown 12/24/2023 12:59 PM EST 12/24/2023 12:59 PM EST Tony Coombs MD LAB BLOOD ORDERABLES [facility] [address] [place] [address], [place] [phone] * Calcium (12/24/2023 12:59 PM EST) Calcium 10.1 8.5 - 10.5 mg/dL LAB CHEMISTRY METHOD 12/24/2023 4:54 PM EST [facility] Blood Venous blood specimen / Unknown Venipuncture / Unknown 12/24/2023 12:59 PM EST 12/24/2023 12:59 PM EST Tony Coombs MD LAB BLOOD ORDERABLES [facility] [address] [place] [address], * Electrolyte panel (12/24/2023 12:59 PM EST) Sodium 137 133 - 145 mmol/L LAB CHEMISTRY METHOD 12/24/2023 4:54 PM EST [facility] Potassium 4.2 3.5 - 5.5 mmol/L LAB CHEMISTRY METHOD 12/24/2023 4:54 PM EST [facility] Chloride 101 96 - 110 mmol/L LAB CHEMISTRY METHOD 12/24/2023 4:54 PM EST [facility] CO2 29 21 - 32 mmol/L LAB CHEMISTRY METHOD 12/24/2023 4:54 PM EST [facility] Anion Gap 7 3 - 11 LAB CHEMISTRY METHOD 12/24/2023 4:54 PM EST [facility] Blood Venous blood specimen / Unknown Venipuncture / Unknown 12/24/2023 12:59 PM EST 12/24/2023 12:59 PM EST Tony Coombs MD LAB BLOOD ORDERABLES Performing Organization Address City/[facility]/ZIP Co de Phone Number [facility] [address] [place] [address], from Last 3 Months Care Teams College Sports Coach Relationship Specialty Start Date End Date Joselito Almanza MD [address] [facility] [address] BRIANDA Trevino PCP - General Internal Medicine 12/16/19
[2024-03-04 13:10] LABS: MANUAL DIFF FLAG NO
[2024-03-04 13:20] LABS: Basophils Percent Auto 0.4 % (0-2); Eosinophils Absolute Auto 0.4 X10*3/uL (0.0-0.4); Eosinophils Percent Auto 4.5 % (0-4); Hematocrit 40.2 % (37.0-47.0); Hemoglobin 13.1 g/dl (12.0-16.0); Imm Gran Abs Auto 0.09 X10*3/uL (0.00-0.03); Imm Gran Pct Auto 1.1 % (0.0-0.4); Lymphocytes Percent Auto 24.5 % (20-40); Mean Corpuscular HGB Conc 32.6 g/dl (31.0-35.0); Mean Corpuscular Hemoglobin 26.3 pg (27.0-33.0); Mean Corpuscular Volume 80.6 fL (80.0-98.0); Mean Platelet Volume 9.4 fL (9.4-12.3); Monocytes Absolute Auto 0.6 X10*3/uL (0.1-1.2); Monocytes Percent Auto 7.2 % (2-11); Neutrophils Percent Auto 62.3 % (45-73); Platelet Count 242 X10*3/uL (160-400); Red Blood Count 4.99 X10*6/uL (4.20-5.50); Red Cell Distribution Width 14.7 % (11.0-16.0)
[2024-03-04 13:24] LABS: Estimated Average Glucose 163 mg/dL; Hemoglobin A1C 190.8212 umol/L; Hemoglobin A1c % 7.3 % (<6.0); Total Hemoglobin (HGBA1C) 3421.1536 umol/L
[2024-03-04 13:31] LABS: Appearance Urine Clear; Color Urine Yellow; Glucose Urine UA Negative (Negative); Leukocyte Esterase Urine Trace (Negative); Nitrite Urine Negative (Negative); PH 5.5 (5.0-9.0); Specific Gravity - Urine 1.015 (1.005-1.025); UMIC TRIGGER UACC YES; Urine Blood Negative (Negative); Urine Ketones Negative (Negative); Urine Protein Negative (Neg-Trace)
[2024-03-04 13:34] LABS: Alanine Aminotransferase 24 U/L (0-31); Alkaline Phosphatase 72 U/L (39-117); Anion Gap 10 (12-20); Aspartate Amino Transferase 33 U/L (5-31); Bilirubin Total 0.5 mg/dL (0.0-1.0); Blood Urea Nitrogen 23 mg/dL (9-16); Calcium 9.4 mg/dL (8.4-10.2); Carbon Dioxide 29 mmol/L (22-29); Chloride 104 mmol/L (96-108); Cholesterol 141 mg/dL (<200); Estimated Glomerular Filt Rate 55; Glucose Fasting 88 mg/dL (60-99); HDL Cholesterol 26 mg/dL (>40); LDL Cholesterol Calculated 84 mg/dL (<100); Sodium 139 mmol/L (135-145); Total Protein 7.1 g/dL (6.5-8.0); Triglycerides 159 mg/dL (<150)
[2024-03-04 13:39] LABS: Bacteria Urine None Seen (None Seen); Hyaline Casts Urine 0-2 /LPF (0-2); RBC Urine 0-2 /HPF (0-2); Squamous Epithelial Cell Urine 0-2 /HPF (0-2); WBC Urine 0-5 /HPF (0-5)
[2024-03-04 13:50] LABS: TSH reflex Free T4 2.93 uIU/mL (0.32-4.0); Vitamin D 25-OH Total 86.3 ng/mL (>30)
[2024-03-04 14:30] LABS: Creatinine Urine 82.42 mg/dL; Microalbumin Urine < 5.0 mg/L
== END 2024-03-04 09:34 | disposition home or self-care (01) ==
LOC: HO.HMGCLDS 09:33
PROVIDERS: PCP Internal Medicine; Visit Provider Internal Medicine
DX: E11.9 Type 2 diabetes mellitus without complications (principal); E55.9 Vitamin D deficiency, unspecified; E78.00 Pure hypercholesterolemia, unspecified; D64.9 Anemia, unspecified
CPT/HCPCS: 36415; 80053; 80061; 81001; 82043; 82306; 82570; 83036; 84443; 85025

== ENCOUNTER → 2024-03-07 14:04 | Outpatient (BNVA) | payer MEDICARE, SELFPAY | PROVIDERS: PCP Internal Medicine; Visit Provider Internal Medicine | DX: E78.00 Pure hypercholesterolemia, unspecified (principal); I12.9 Hypertensive chronic kidney disease with stage 1 through stage 4 chronic kidney disease, or unspecified chronic kidney disease; E11.22 Type 2 diabetes mellitus with diabetic chronic kidney disease; N18.2 Chronic kidney disease, stage 2 (mild); K21.9 Gastro-esophageal reflux disease without esophagitis; M51.362 Other intervertebral disc degeneration, lumbar region with discogenic back pain and lower extremity pain; E55.9 Vitamin D deficiency, unspecified; E66.3 Overweight | CPT/HCPCS: 96127; 99212 ==

== ENCOUNTER 2024-05-09 13:11 | Outpatient (REF) | payer MEDICARE, SELFPAY ==
--- NOTE | ~2024-05-09 | XR_ITS ---
EXAMINATION: XR HIP, LEFT CLINICAL INFORMATION: M25.552 - Pain in left hip COMPARISON: None available. TECHNIQUE: Two views of the left hip. FINDINGS: No fracture, dislocation, or suspicious bone lesion. Minimal degenerative arthritis noted in the left hip joint. There is normal alignment. There is over coverage of the posterior acetabulum, which can be associated with pincer-type KOTA. The femoral head demonstrates normal contour with no evidence of AVN. Remainder of the bony and soft tissue structures appear normal. XR/XR hip LT min 2V IMPRESSION: 1. No acute bony abnormalities. 2. Minimal degenerative arthritis left hip joint, with over coverage of the posterior acetabulum as detailed. Electronically signed by: Josh Johnson MD 05/09/2024 03:19 PM EDT
--- NOTE | ~2024-05-09 | XR_ITS ---
EXAMINATION: XR LUMBOSACRAL SPINE CLINICAL INFORMATION: M54.50 - Low back pain, unspecified COMPARISON: None available. TECHNIQUE: Three views of the lumbosacral spine. FINDINGS: There is a moderate levoconvex scoliosis with a rotatory component, apex at L3. There is a normal lumbar lordosis. No fracture, compression deformity, or suspicious bone lesion. There is a minimal degenerative retrolisthesis of L3 on L4. Alignment is otherwise anatomic. Severe disc degeneration present at L2-3 with sclerosis of the endplates and disc osteophytic spurs. Moderate to severe disc degeneration at T12-L1 and L1-2. There is otherwise mild to moderate degeneration of the discs at L2-3, L4-5 and L5-S1. There is normal facet alignment. There are sclerotic hypertrophic degenerative facet changes right greater than left spanning L3-S1. The sacrum and SI joints appear normal. The soft tissues are normal aside from vascular calcifications. XR/XR lumbar spine 2-3V IMPRESSION: 1. No acute bony abnormalities. 2. Moderate levoconvex scoliosis with rotatory component. 3. Moderate degenerative spondylosis most significant at L3-4. Electronically signed by: Josh Johnson MD 05/09/2024 03:24 PM EDT
== END 2024-05-09 13:12 | disposition home or self-care (01) ==
LOC: HO.HMGCX 13:11
PROVIDERS: PCP Internal Medicine; Visit Provider Internal Medicine
DX: M25.552 Pain in left hip (principal); M54.50 Low back pain, unspecified
CPT/HCPCS: 72100; 73502

== ENCOUNTER → 2024-05-09 13:15 | Outpatient (BNV) | payer MEDICARE, SELFPAY | PROVIDERS: PCP Internal Medicine; Visit Provider Radiology Diagnostic Radiology | DX: M54.50 Low back pain, unspecified (principal); M25.552 Pain in left hip | CPT/HCPCS: 72100; 73502 ==

== ENCOUNTER 2024-05-28 13:46 | Outpatient (AMB) | payer MEDICARE, SELFPAY ==
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
[2024-05-28 13:49] VITALS: BP 154/83; PULSE 92; RESP 16; O2SAT 98; BMI 27.5
--- OUTSIDE RECORDS SUMMARY | 2024-05-28 16:24 | XMS_ITS | Clinical Summary ---
Author Organization [facility] [address] [facility] Address [address] [place] [phone] Phone Care Team Providers Care Supervisor Lending Activities Name Role Phone Joselito Almanza MD Primary Care Provider + [phone] Medications lovastatin (MEVACOR) 40 mg tablet Take 1 tablet (40 mg total) by mouth at bedtime. Active amLODIPine-callie zepril (LOTREL) 5-20 mg per capsule Take 1 capsule by mouth 1 (one) time each day. Active metFORMIN (GLUCOPHAGE) 500 mg tablet Take 1 tablet (500 mg total) by mouth 2 (two) times a day with meals. Active metoprolol succinate (TOPROL-XL) 50 mg 24 hr tablet Take 1 tablet (50 mg total) by mouth 1 (one) time each day. Do not crush or chew. Active spironolactone- hydroCHLOROthia zide (ALDACTAZIDE) 25-25 mg per tablet Take 1 tablet (25 mg total) by mouth 1 (one) time each day. Active omeprazole (PriLOSEC) [address] capsule Take 1 capsule (20 mg total) by mouth 1 (one) time each day. Do not crush or chew. Active oxyCODONE-aceta minophen (Percocet) 5-325 mg per tablet Take by mouth. Active buffered aspirin (BUFFERIN) 325 mg tablet Take 81 mg by mouth 1 (one) time each day. 81mg Active insulin glargine,hum.re c.anlog (Basaglar KwikPen U-100 Insulin) 100 unit/mL (3 mL) injection pen Inject under the skin at bedtime. Active Active Problems Problem Noted Date Diagnosed Date CKD stage 3a, GFR 45-59 ml/min ([facility] V24, [facility] V28) 04/16/2024 Type 2 DM with CKD stage 3 a nd hypertension ([facility] V24, [facility] V28) 04/16/2024 Essential hypertension, benign Overview (04/16/2024): DX:Essential hypertension, benign Encounters Date Type Department Care Team Description 04/16/2024 1:00 PM EST Office Visit Nephrology [address] [phone] Tony Coombs MD CKD stage 3a, GFR 45-59 ml/min ([facility] V24, [facility] V28) (Primary Dx); Essential hypertension, benign; Type 2 DM with CKD stage 3 and hypertension ([facility] V24, [facility] V28) from Last 3 Months Surgical History Surgery Date Site/Laterality Comments TONSILLECTOMY 1968 PROCEDURE: HISTORICAL TONSILLECTOMY OTHER SURGICAL HISTORY 08/09/04 PROCEDURE: ME HEMORRHOIDECTOMY NTRNL & XTRNL 1 COLUMN/GROUP COLONOSCOPY 03/06/2001 PROCEDURE: ME COLONOSCOPY FLX DX W/COLLJ SPEC WHEN PFRMD; COMMENT: Negative. MULTIPLE TOOTH EXTRACTIONS PROCEDURE: HISTORICAL DENTAL EXTRACTION COLONOSCOPY 08/03/2011 PROCEDURE: ME COLONOSCOPY FLX DX W/COLLJ SPEC WHEN PFRMD; [...] drink = 0.6 oz pur e alcohol) Comments Unknown Sex and Gender Information Value Date Recorded Sex Assigned at Not on file Legal Sex Female 9:28 AM EST Gender Identity Not on file Sexual Orientation Not on file Obstetrics History Last Filed Vital Signs Vital Sign Reading Time Taken Comments Blood Pressure 115/69 04/16/2024 1:07 PM EST Pulse 78 04/16/2024 1:07 PM EST Temperature - - Respiratory Rate - - Oxygen Saturation - - Inhaled Oxygen Concentration - - Weight 86.9 kg (191 lb 9.6 oz) 04/16/2024 1:07 P M EST Height - - Body Mass Index - - Plan of Treatment Upcoming Encounters Date Type Department Care Team (Late st Contact Info) Description 04/15/2025 3:15 PM EST Office Visit Nephrology - [address] [phone] Tony Coombs MD [address] [place] [address] Health Maintenance Due Date Last Done Comments Diabetes: Annual Foot Exam 1959 Diabetes: Annual Retina Eye Exam 1959 Hepatitis A Vaccines (1 of 2 - Risk 2-dose series) 1968 Hepatitis B Vaccines (1 of 3 - Risk 3-dose series) 2009 Zoster Vaccines (2 of 3) 03/15/2012 01/19/2012 Pneumococcal Vaccine: 50+ Years (3 of 3 - PCV20 or PCV21) 07/12/2021 07/12/2016, 08/20/2012, 11/18/2003 Cholesterol Screening (Lipid Panel) 01/21/2022 Colorectal Cancer Screening: Colonoscopy 01/21/2022 Depression Screening 01/21/2022 Diabetes: Blood Sugar Control Test (HGBA1C) 01/21/2022 Falls Risk Assessment 01/21/2022 Hepatitis C Screening 01/21/2022 Osteoporosis Screening (Bone Density Screening) 01/21/2022 Social Influencers of Health Screening 01/21/2022 DTaP,Tdap,and Td Vaccines (4 - Td or Tdap) 09/09/2022 09/09/2012, 07/22/2008, 02/12/1998 RSV Immunization Adult Patients (1 - 1-dose 75+ series) 2024 Diabetes: Annual Urine Albumin-Creatinine Ratio (uACR) 12/23/2024 12/24/2023 Diabetes: Annual GFR (Glomerular Filtration Rate) 12/23/2024 12/24/2023 Hypertension/CHF/CAD Annual BMP Blood Test 12/23/2024 12/24/2023 COVID-19 Vaccine Completed 02/11/2024, , 11/01/2021, Additional history exists Influenza Vaccine Completed 02/11/2024, , 12/05/2021, Additional history exists HIB Vaccines Aged Out No longer eligi [...] patient's age to complete this topic Meningococcal B Vaccine Aged Out No l onger eligible based on patient's age to complete [...] IV, 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) from Last 3 Months or Most Recently Relevant to Health Maintenance Results * (ABNORMAL) Microalbumin creatinine urine ratio (12/24/2023 12:59 PM EST) Creatinine, Urine 297.0 mg/dL LAB CHEMISTRY METHOD 12/24/2023 3:40 PM EST [facility] Microalb, Ur 56.5(H) 0.0 - 29.0 mg/L LAB CHEMISTRY METHOD 12/24/2023 3:40 PM EST [facility] Microalb/Crea t Ratio 19 <30 mg/g creat LAB CHEMISTRY METHOD 12/24/2023 3:40 PM EST [facility] Urine Urine specimen obtained by clean catch procedure / Unknown Non-blood Collection / Unknown 12/24/2023 12:59 PM EST 12/24/2023 12:59 PM EST Tony Coombs MD LAB URINE ORDERABLES Final Resu lt [facility] [address] [place] [address], [place] [phone] * (ABNORMAL) Creatinine (12/24/2023 12:59 PM EST) Creatinine 1.16(H) 0.50 - 1.10 mg/dL LAB CHEMISTRY METHOD 12/24/2023 4:54 PM EST [facility] eGFR 50(L) >=60 mL/min/1. 73m2 LAB CHEMISTRY METHOD 12/24/2023 4:54 PM EST [facility] Comment:Calculation based on the??Chronic Kidney Disease Epidemiology Collaboration (CKD-EPI) equation refit??without adjustment for race. Blood Venous blood specimen / Unknown Venipuncture / Unknown 12/24/2023 12:59 PM EST 12/24/2023 12:59 PM EST Tony Coombs MD LAB BLOOD ORDERABLES Final Resu lt [facility] [address] [place] [address], [place] [phone] from Last 3 Months or Most Recently Relevant to Health Maintenance Insurance [facility] Care Teams Supervisor Lending Activities Relationship Specialty Start Date End Date Joselito Almanza MD [address] [place] [address] [address] [place] PCP - General Internal Medicine 12/16/19
--- OUTSIDE RECORDS SUMMARY | 2024-05-28 16:24 | XMS_ITS | Clinical Summary ---
Author Organization [facility] Facility Address [address] [address] Care Team Providers Care Legal Office Administrator Name Role Phone Unavailable Primary Care Provider Unavailabl e Medications metoprolol succinate XL (TOPROL XL) 50 MG 24 hr tablet TAKE 1 TABLET DAILY 90 tablet 3 10/23/2021 Active Social History Tobacco Use Types Packs/Day Years Used Date Smoking Tobacco: Never Assessed Comments Unknown Sex and Gender Information Value Date Recorded Sex Assigned at Not on file Legal Sex Female 5:04 PM EST Gender Identity Not on file Sexual Orientation Not on file Plan of Treatment Health Maintenance Due Date Last Done Comments Breast Cancer Screening 1950 Pneumococcal Vaccine: 50+ Ye ars (1 of 2 - PCV) 1968 Colorectal Cancer Screening: Annual FOBT 1998 Colorectal Cancer Screening: Colonoscopy 1998 Colorectal Cancer Screening: Sigmoidoscopy 1998 Influenza Vaccine (Season Ended) 2024 Hepatitis B Vaccine Aged Out No longe r eligible based on patient's age to complete this topic
== END 2024-05-28 14:16 | disposition home or self-care (01) ==
PROVIDERS: PCP Internal Medicine; Referring Provider Internal Medicine; Visit Provider Anesthesiology
DX: M47.816 Spondylosis without myelopathy or radiculopathy, lumbar region (principal); M51.362 Other intervertebral disc degeneration, lumbar region with discogenic back pain and lower extremity pain; G89.4 Chronic pain syndrome; M16.12 Unilateral primary osteoarthritis, left hip
CPT/HCPCS: 99204

== ENCOUNTER → 2024-05-28 13:46 | Outpatient (BNVA) | payer MEDICARE, SELFPAY | PROVIDERS: PCP Internal Medicine; Referring Provider Internal Medicine; Visit Provider Anesthesiology | DX: M47.816 Spondylosis without myelopathy or radiculopathy, lumbar region (principal); M51.362 Other intervertebral disc degeneration, lumbar region with discogenic back pain and lower extremity pain; G89.4 Chronic pain syndrome; M16.12 Unilateral primary osteoarthritis, left hip | CPT/HCPCS: 99202 ==

== ENCOUNTER 2024-05-30 12:54 | Outpatient (AMB) | payer MEDICARE, SELFPAY ==
--- OUTSIDE RECORDS SUMMARY | 2024-05-30 13:27 | XMS_ITS | Clinical Summary ---
Author Organization [facility] [address] [facility] Address [address] [place] [phone] Phone Care Team Providers Care Stapler Machine Name Role Phone Joselito Almanza MD Primary Care Provider + [phone] Medications lovastatin (MEVACOR) 40 mg tablet Take [...] Date CKD stage 3a, GFR 45-59 ml/min ([facility] V24, [facility] V28) 04/16/2024 Type 2 DM with CKD stage 3 a nd hypertension ([facility] V24, [facility] V28) 04/16/2024 Essential hypertension, benign Overview (04/16/2024): DX:Essential hypertension, benign Encounters Date Type Department Care Team Description 04/16/2024 1:00 PM EST Office Visit Nephrology [address] [phone] Tony Coombs MD CKD stage 3a, GFR 45-59 ml/min ([facility] V24, [facility] V28) (Primary Dx); Essential hypertension, benign; Type 2 DM with CKD stage 3 and hypertension ([facility] V24, [facility] V28) from Last 3 Months Surgical History Surgery Date Site/Laterality Comments TONSILLECTOMY 1968 PROCEDURE: HISTORICAL TONSILLECTOMY OTHER SURGICAL HISTORY 08/09/04 PROCEDURE: [place] HEMORRHOIDECTOMY NTRNL & XTRNL 1 COLUMN/GROUP COLONOSCOPY 03/06/2001 PROCEDURE: [place] COLONOSCOPY FLX DX W/COLLJ SPEC WHEN PFRMD; COMMENT: Negative. MULTIPLE TOOTH EXTRACTIONS PROCEDURE: HISTORICAL DENTAL EXTRACTION COLONOSCOPY 08/03/2011 PROCEDURE: [place] COLONOSCOPY FLX DX W/COLLJ SPEC WHEN PFRMD; [...] 3:15 PM EST Office Visit Nephrology - [address] [phone] Tony Coombs MD [address] [place] [address] Health Maintenance Due Date Last [...] LAB CHEMISTRY METHOD 12/24/2023 3:40 PM EST [facility] Microalb, Ur 56.5(H) 0.0 - 29.0 mg/L LAB CHEMISTRY METHOD 12/24/2023 3:40 PM EST [facility] Microalb/Crea t Ratio 19 <30 mg/g creat LAB CHEMISTRY METHOD 12/24/2023 3:40 PM EST [facility] Urine Urine specimen obtained by clean catch procedure / Unknown Non-blood Collection / Unknown 12/24/2023 12:59 PM EST 12/24/2023 12:59 PM EST Tony Coombs MD LAB URINE ORDERABLES Final Resu lt [facility] [address] [place] [address], [place] [phone] * (ABNORMAL) Creatinine (12/24/2023 12:59 PM EST) Creatinine 1.16(H) 0.50 - 1.10 mg/dL LAB CHEMISTRY METHOD 12/24/2023 4:54 PM EST [facility] eGFR 50(L) >=60 mL/min/1. 73m2 LAB CHEMISTRY METHOD 12/24/2023 4:54 PM EST [facility] Comment:Calculation based on the??Chronic Kidney Disease Epidemiology Collaboration (CKD-EPI) equation refit??without adjustment for race. Blood Venous blood specimen / Unknown Venipuncture / Unknown 12/24/2023 12:59 PM EST 12/24/2023 12:59 PM EST Tony Coombs MD LAB BLOOD ORDERABLES Final Resu lt [facility] [address] [place] [address], [place] [phone] from Last 3 Months or Most Recently Relevant to Health Maintenance Insurance [facility] Care Teams Stapler Machine Relationship Specialty Start Date End Date Joselito Almanza MD [address] [place] [address] [address] [place] PCP - General Internal Medicine 12/16/19
--- OUTSIDE RECORDS SUMMARY | 2024-05-30 13:27 | XMS_ITS | Clinical Summary ---
Author Organization [facility] Facility Address [address] [address] Care Team Providers Care Outbound Sales Professional Name Role Phone Unavailable Primary Care Provider [...]
--- NOTE | 2024-05-30 13:30 | AM.OFFWIN_ITS ---
Intake Vital Signs 05/30/24 13:33 Height 5 ft 11 in Weight 195 lb BMI 27.2 BP 118/64 Blood Pressure Location Rt brachial Position Sitting Respiration 16 Pulse 69 Pulse Source Pulse Oximeter Temp 98.1 F Temp Source Oral Pulse Oximetry (%) 98 Oxygen Delivery Method Room Air Intake Visit Reasons: EP RT toe ?infection Intake Note: patient here c/o ? right toe infection Patient Tobacco Use Status: Never used Tobacco Administrative Clerk Required: No Is last menstrual period known: No Post menopausal: No Patient : No Allergies fluticasone [From FLONASE] Adverse Reaction (Intermediate, Verified 05/30/24 13:32) NAUSEA Do you need a note to return to daycare/school/sports/work: No HPI HPI Comments History of Present Illness Details History of Present Illness - The patient is a 74 year old female pr esenting with an infected right great toe. - Her past medical history includes diab etes, which she is currently managing, though she expresses concern due to the potential complications associated with infections. - The infection has persisted for approx imately one week, following an accidental cut to the toenail cuticle. - She has been treating the infection wi th alcohol wipes without improvement. - Symptoms include slight tenderness, re dness, and swelling with some scant/pinpoint dried discharge, though there is no significant pain. - She denies any history of MRSA and rep orts swelling and peeling in the area. Physical Exam General: Cooperative, healthy appearing, comfortable, no acute distress and well developed Orientation: Patient oriented x3 Limitations: No limitations Head: Normal to inspection Ears: Hearing grossly normal bilaterally Nose: Normal External nose present Face and sinus: Normal facial exam Eyes: Appearance normal, both eyes and all related structures Neck: Normal visual inspection and Yes full ROM Respiratory: Normal respiratory effort and able to speak in complete sentences. Skin: as below Neuro: Patient oriented x3 Extremities: Right big toe with erythema, ttp and warmth in a 1cm x 0.5cm area below the toenail. some peeling lateral to the toenail. No significant discharge noted. [facility] Medical History Allergic rhinitis Seborrheic dermatitis of scalp Overweight (BMI 25.0-29.9) Lumbar degenerative disc disease Vitamin D deficiency GERD without esophagitis Pure hypercholesterolemia Benign essential hypertension Chronic kidney disease (CKD), stage II (mild) Type 2 diabetes mellitus with diabetic chronic kidney disease Surgical History History of hysteroscopy (~11/2005) History of colonoscopy History of hemorrhoidectomy History of tonsillectomy Family History Mother Dementia Emphysema lung Father Emphysema lung Other Family history non-contributory Social History Housing: House Alcohol intake: current Alcohol intake frequency: holidays/special occasions only Alcohol type: wine Patient Tobacco Use Status: Never used Tobacco e-Cigarette/Vaping Use: Never Used Second Hand Smoke Exposure: Yes Patient : No service: No Current occupational status: retired Cognitive needs: No Hearing needs: No Vision needs: Yes (wear glasses) Review of Systems Const All systems reviewed & are unremarkable except as noted in HPI and below Physical Exam Vital Signs: Last Vital Signs Temp 98.1 F 05/30/24 13:33 Pulse 69 05/30/24 13:33 Resp 16 05/30/24 13:33 BP 118/64 05/30/24 13:33 Pulse Ox 98 05/30/24 13:33 Oxygen Delivery Method Room Air 05/30/24 13:33 BMI result Body Mass Index 27.2 Assessment & Plan Assessment & Plan (1) Cellulitis: Code(s): L03.90 - Cellulitis, unspecified Qualifiers: Site of cellulitis: extremity Site of cellulitis of extremity: lower extremity Laterality: right Qualified Code(s): L03.115 - Cellulitis of right lower limb Plan: Doesn't appear to be a true drainable paronychia, rather a cellulitis, as there is no abscess area to drain, no drainage noted and not exactly along the toenail bed. I have prescribed Keflex cephalexin for one week to treat the cellulitis of the right big toe. This oral antibiotic should effectively combat the bacterial infection without affecting her diabetes management. The patient is instructed to maintain hygiene and continue using Epsom salts for soaking. I advised her to monitor the condition and return if symptoms worsen or do not improve with antibiotic therapy. Prescription details have been sent to her pharmacy for ease of access. Patient was informed and verbally consented to the use of an ambient scribe for clinic note documentation during this visit. Medications: New cephalexin 500 mg PO Q6H 28 caps 0RF Coding Level of Care Code Est Pt Level 3 (99565) Diagnoses Cellulitis of right lower extremity L03.115 Site of cellulitis: extremity Site of cellulitis of extremity: lower extremity Laterality: right
[2024-05-30 13:33] VITALS: BP 118/64; PULSE 69; RESP 16; TEMP 36.7; O2SAT 98; BMI 27.2
== END 2024-05-30 14:07 | disposition home or self-care (01) ==
PROVIDERS: PCP Internal Medicine; Visit Provider Physician Assistant
DX: L03.115 Cellulitis of right lower limb (principal)

== ENCOUNTER → 2024-05-30 12:54 | Outpatient (BNVA) | payer MEDICARE, SELFPAY | PROVIDERS: PCP Internal Medicine; Visit Provider Physician Assistant | DX: L03.115 Cellulitis of right lower limb (principal) | CPT/HCPCS: 99212 ==

== ENCOUNTER 2024-07-08 09:58 | Outpatient (REF) | payer MEDICARE, SELFPAY ==
--- OUTSIDE RECORDS SUMMARY | 2024-07-08 10:38 | XMS_ITS | Clinical Summary ---
Author Organization [facility] [address] [place] [address] [place] [phone] Phone Care Team Providers Care Assembler Knife Name Role Phone Joselito Almanza MD Primary Care Provider + [phone] Medications lovastatin (MEVACOR) 40 mg tablet Take 1 tablet (40 mg total) by mouth at bedtime. Active amLODIPine-donald azepril (LOTREL) 5-20 mg per capsule Take 1 capsule by mouth 1 (one) time each day. Active metFORMIN (GLUCOPHAGE) 500 mg tablet Take 1 tablet (500 mg total) by mouth 2 (two) times a day with meals. Active spironolactone -hydroCHLOROth iazide (ALDACTAZIDE) 25-25 mg per tablet Take 1 tablet (25 mg total) by mouth 1 (one) time each day. Active omeprazole (PriLOSEC) [address] capsule Take 1 capsule (20 mg total) by mouth 1 (one) time each day. Do not crush or chew. Active oxyCODONE-acet aminophen (Percocet) 5-325 mg per tablet Take by mouth. Active buffered aspirin (BUFFERIN) 325 mg tablet Take 81 mg by mouth 1 (one) time each day. 81mg Active insulin glargine,hum.r ec.anlog (Basaglar KwikPen U-100 Insulin) 100 unit/mL (3 mL) injection pen Inject under the skin at bedtime. Active metoprolol succinate (TOPROL-XL) 50 mg 24 hr tablet TAKE 1 TABLET DAILY 90 tablet 3 5 Active metoprolol succinate (TOPROL-XL) 50 mg 24 hr tablet Take 1 tablet (50 mg total) by mouth 1 (one) time each day. Do not crush or chew. 06/11/19 25 Discontinued Active Problems Problem Noted Date Diagnosed Date CKD stage 3a, GFR 45-59 ml/min ([facility] V24, [facility] V28) 04/16/2024 Type 2 DM with CKD stage 3 a nd hypertension ([facility] V24, [facility] V28) 04/16/2024 Essential hypertension, benign Overview (04/16/2024): DX:Essential hypertension, benign Encounters Date Type Department Care Team Description 04/16/2024 1:00 PM EST Office Visit Nephrology - [address] [phone] Tony Coombs MD CKD stage 3a, GFR 45-59 ml/min ([facility] V24, [facility] V28) (Primary Dx); Essential hypertension, benign; Type 2 DM with CKD stage 3 and hypertension ([facility] V24, [facility] V28) from Last 3 Months Surgical History Surgery Date Site/Laterality Comments TONSILLECTOMY 1968 PROCEDURE: HISTORICAL TONSILLECTOMY OTHER SURGICAL HISTORY 08/09/04 PROCEDURE: [place] HEMORRHOIDECTOMY NTRNL & XTRNL 1 COLUMN/GROUP COLONOSCOPY 03/06/2001 PROCEDURE: [place] COLONOSCOPY FLX DX W/COLLJ SPEC WHEN PFRMD; COMMENT: Negative. MULTIPLE TOOTH EXTRACTIONS PROCEDURE: HISTORICAL DENTAL EXTRACTION COLONOSCOPY 08/03/2011 PROCEDURE: [place] COLONOSCOPY FLX DX W/COLLJ SPEC WHEN PFRMD; [...] 04/15/2025 3:15 PM EST Office Visit Nephrology [address] [id number] [place], [place] [phone] Tony Coombs MD [address] [facility] [address] [place] [address] Health Maintenance Due Date Last Done Comments [...] Patients (1 - 1-dose 75+ series) 2024 COVID-19 Vaccine (7 - Pfizer risk season) 2024 02/11/2024, 03/03/2023, 11/01/2021, Additional history exists Diabetes: Annual Urine Albumin-Creatinine Ratio (uACR) 12/23/2024 12/24/2023 Diabetes: Annual GFR (Glomerular Filtration Rate) 12/23/2024 12/24/2023 Hypertension/CHF/CAD Annual BMP Blood Test 12/23/2024 12/24/2023 Influenza Vaccine Completed 02/11/2024, , 12/05/2021, Additional [...] CHEMISTRY METHOD 12/24/2023 3:40 PM EST [facility] Microalb, Ur 56.5(H) 0.0 - 29.0 mg/L LAB CHEMISTRY METHOD 12/24/2023 3:40 PM EST [facility] Microalb/Crea t Ratio 19 <30 mg/g creat LAB CHEMISTRY METHOD 12/24/2023 3:40 PM EST [facility] Urine Urine specimen obtained by clean catch procedure / Unknown Non-blood Collection / Unknown 12/24/2023 12:59 PM EST 12/24/2023 12:59 PM EST us Tony Coomsb MD LAB URINE ORDERABLES Final Resu lt Performing Organization Address [facility] Co de Phone Number [facility] [address] [place] [address], [place] [phone] * (ABNORMAL) Creatinine (12/24/2023 12:59 PM EST) Creatinine 1.16(H) 0.50 - 1.10 mg/dL LAB CHEMISTRY METHOD 12/24/2023 4:54 PM EST [facility] eGFR 50(L) >=60 mL/min/1. 73m2 LAB CHEMISTRY METHOD 12/24/2023 4:54 PM EST [facility] Comment:Calculation based on the??Chronic Kidney Disease Epidemiology Collaboration (CKD-EPI) equation refit??without adjustment for race. Blood Venous blood specimen / Unknown Venipuncture / Unknown 12/24/2023 12:59 PM EST 12/24/2023 12:59 PM EST us Tony Coombs MD LAB BLOOD ORDERABLES Final Resu lt Performing Organization Address City/[facility]/ZIP Co de Phone Number [facility] [address] [place] [address], [place] [phone] from Last 3 Months or Most Recently Relevant to Health Maintenance Insurance [facility] Care Teams Assembler Knife Relationship Specialty Start Date End Date Joselito Almanza MD [address] [place] [address] [address] [place], [place] PCP - General Internal Medicine 12/16/19
[2024-07-08 13:21] LABS: MANUAL DIFF FLAG NO
[2024-07-08 13:41] LABS: Appearance Urine Clear; Color Urine Yellow; Glucose Urine UA Negative (Negative); Leukocyte Esterase Urine Small (1+) (Negative); Nitrite Urine Negative (Negative); PH 5.5 (5.0-9.0); UMIC TRIGGER UACC YES; Urine Blood Negative (Negative); Urine Ketones Negative (Negative); Urine Protein Negative (Neg-Trace)
[2024-07-08 13:45] LABS: Basophils Percent Auto 0.5 % (0-2); Eosinophils Absolute Auto 0.5 X10*3/uL (0.0-0.4); Eosinophils Percent Auto 5.3 % (0-4); Estimated Average Glucose 163 mg/dL; Hematocrit 37.5 % (37.0-47.0); Hemoglobin 12.1 g/dl (12.0-16.0); Hemoglobin A1c % 7.3 % (<6.0); Imm Gran Abs Auto 0.03 X10*3/uL (0.00-0.03); Imm Gran Pct Auto 0.3 % (0.0-0.4); Lymphocytes Absolute Auto 2.2 X10*3/uL (1.2-4.9); Lymphocytes Percent Auto 25.2 % (20-40); Mean Corpuscular HGB Conc 32.3 g/dl (31.0-35.0); Mean Corpuscular Hemoglobin 26.2 pg (27.0-33.0); Mean Corpuscular Volume 81.3 fL (80.0-98.0); Mean Platelet Volume 10.2 fL (9.4-12.3); Monocytes Absolute Auto 0.8 X10*3/uL (0.1-1.2); Monocytes Percent Auto 9.1 % (2-11); Neutrophils Absolute Auto 5.2 x10*3/uL (2.0-8.3); Neutrophils Percent Auto 59.6 % (45-73); Platelet Count 237 X10*3/uL (160-400); Red Blood Count 4.61 X10*6/uL (4.20-5.50); Red Cell Distribution Width 14.5 % (11.0-16.0); White Blood Count 8.7 X10*3/uL (4.8-10.8)
[2024-07-08 13:51] LABS: Bacteria Urine None Seen (None Seen); Hyaline Casts Urine 0-2 /LPF (0-2); RBC Urine 0-2 /HPF (0-2); Squamous Epithelial Cell Urine 0-2 /HPF (0-2); UACC Culture Trigger YES; WBC Urine 0-5 /HPF (0-5)
[2024-07-08 14:05] LABS: Alanine Aminotransferase 20 U/L (0-31); Albumin Level 3.9 g/dL (3.5-5.0); Alkaline Phosphatase 73 U/L (39-117); Anion Gap 13 (12-20); Aspartate Amino Transferase 30 U/L (5-31); Bilirubin Total 0.5 mg/dL (0.0-1.0); Blood Urea Nitrogen 28 mg/dL (9-16); Calcium 10.1 mg/dL (8.4-10.2); Carbon Dioxide 26 mmol/L (22-29); Chloride 103 mmol/L (96-108); Cholesterol 139 mg/dL (<200); Estimated Glomerular Filt Rate 49; Glucose Fasting 108 mg/dL (60-99); HDL Cholesterol 28 mg/dL (>40); LDL Cholesterol Calculated 83 mg/dL (<100); Potassium 4.2 mmol/L (3.3-5.1); Sodium 138 mmol/L (135-145); Total Protein 6.6 g/dL (6.5-8.0); Triglycerides 143 mg/dL (<150)
[2024-07-08 14:10] LABS: TSH reflex Free T4 1.81 uIU/mL (0.32-4.0); Vitamin D 25-OH Total 87.5 ng/mL (>30)
[2024-07-08 15:02] LABS: Creatinine Urine 133.25 mg/dL; Microalbum/Creatinine Ratio Ur 9.7 ug/mg cr (<30)
== END 2024-07-08 09:59 | disposition home or self-care (01) ==
LOC: HO.HMGCLDS 09:58
PROVIDERS: PCP Internal Medicine; Visit Provider Internal Medicine
DX: D64.9 Anemia, unspecified (principal); E78.00 Pure hypercholesterolemia, unspecified; E55.9 Vitamin D deficiency, unspecified; E11.9 Type 2 diabetes mellitus without complications; R30.0 Dysuria
CPT/HCPCS: 36415; 80053; 80061; 81001; 82043; 82306; 82570; 83036; 84443; 85025; 87086

== ENCOUNTER 2024-07-11 15:59 | Outpatient (AMB) | payer MEDICARE, SELFPAY ==
[2024-07-11 16:06] VITALS: BP 122/80; PULSE 65; O2SAT 96; BMI 27.2
--- NOTE | 2024-07-11 16:06 | MHC.PC.OV ---
Vital Signs 07/11/24 16:06 Height 5 ft 11 in Weight 195 lb 4 oz BMI 27.2 BP 122/80 Blood Pressure Location Lt brachial Position Sitting Pulse 65 Pulse Source Pulse Oximeter Pulse Oximetry (%) 96 Oxygen Delivery Method Room Air Intake Visit Reasons: 4 month f/u- see comments Epic Prelude Analyst Required: No Accompanied by: Self / Same As Patient Allergies fluticasone [From FLONASE] Adverse Reaction (Intermediate, Verified 07/11/24 16:26) NAUSEA Medication List - Last Reconciled 07/11/24 by Joselito Almanza MD acyclovir 5% 1 appl topical 6XD 7 days amlodipine-benazepril 5-20 mg 1 cap PO DAILY blood sugar diagnostic 1 strip miscellaneous BID budesonide 32 mcg/actuation 2 sprays intranasal QAM cephalexin 500 mg PO Q6H cetirizine 10 mg PO DAILY PRN 90 days cholecalciferol (vitamin D3) 50 mcg PO DAILY insulin glargine (Basaglar KwikPen U-100 Insulin) 50 units (0.5 mL) subcut QPM 90 days ketoconazole 2% topical lovastatin 40 mg PO DAILY metformin 1,000 mg (2 x 500 mg) PO BID metoprolol succinate ER 50 mg PO DAILY omeprazole 20 mg PO QAM oxycodone-acetaminophen 5-325 mg 1 tab PO Q8H PRN 7 days pen needle, diabetic (BD Ultra-Fine Wanda Pen Needle) USE DIRECTED sertraline 50 mg PO DAILY 30 days spironolacton-hydrochlorothiaz 25-25 mg 1 tab PO DAILY Tobacco use date assessed: 07/11/24 Fall risk assessment: 1 Fall in past year Last assessed Fall Risk: 07/11/24 Dental Screening Dental Screen Date: 07/11/24 Did you have a dental visit in the last 12 months?: Yes Did you have a dental problem in the last 6 months where you did not have access to dental care?: No Was dental information given to patient?: Patient has dentist HPI 4 month f/u- see comments HPI Details Patient comes in today for her follow up visit States that she feels okay She denies any headaches or dizziness Denies any chest pains, no increased SOB No nausea/vomiting, no abdominal pain No change in bowel habits noted States that her chronic left-sided low back pain and joint pains remain fairly controlled on her current Rx She was seen by pain management last month and states that Dr. Graham thinks that a lot of her radicular symptoms are due to her left hip issues She has been referred to and is currently going to physical therapy for her hip She had her follow up labs done a few days ago - to discuss her results [facility] Medical History Allergic rhinitis Seborrheic dermatitis of scalp Overweight (BMI 25.0-29.9) Lumbar degenerative disc disease Vitamin D deficiency GERD without esophagitis Pure hypercholesterolemia Benign essential hypertension Chronic kidney disease (CKD), stage II (mild) Type 2 diabetes mellitus with diabetic chronic kidney disease Surgical History History of hysteroscopy (~11/2005) History of colonoscopy History of hemorrhoidectomy History of tonsillectomy Family History Mother Dementia Emphysema lung Father Emphysema lung Other Family history non-contributory Social History Housing: House Alcohol intake: current Alcohol intake frequency: holidays/special occasions only Alcohol type: wine Patient Tobacco Use Status: Never used Tobacco e-Cigarette/Vaping Use: Never Used Second Hand Smoke Exposure: Yes service: No Current occupational status: retired Cognitive needs: No Hearing needs: No Vision needs: Yes (wear glasses) Questionnaire PHQ-9 Over the last 2 weeks, how often have you been bothered by any of the following problems? 1. Little interest or pleasure in doing things: not at all 2. Feeling down, depressed, or hopeless: not at all 3. Trouble falling or staying asleep, or sleeping too much: not at all 4. Feeling tired or having little energy: not at all 5. Poor appetite or overeating: not at all 6. Feeling bad about yourself - or that you are a failure or have let yourself or your family down: not at all 7. Trouble concentrating on things, such as reading the newspaper or watching television: not at all 8. Moving or speaking so slowly that other people could have noticed. Or the opposite - being so fidgety or restless that you have been moving around a lot more than usual: not at all 9. Thoughts that you would be better off or of hurting yourself in some way: not at all Total score: 0 Depression Screening Interpretation: Negative Depression Screening Done: Yes 75980 - PHQ-9 Billing: Yes Source: Developed by Drs. Michi Pérez, Myranda Harrison, Deonte Bowser and colleagues, with an educational patric from [employer]. Thrive Questionnaire Date Thrive assessed: 07/11/24 I am a: Patient What is your living situation today?: I have a steady place to live Within the past 12 months, did the food you bought not last and you didn't have the money to get more?: Never true Within the past 12 months, did you worry whether your food would run out before you got money to buy more?: Never true Do you have trouble paying for medicines?: No Do you have trouble getting transportation to medical appointments?: No Do you have trouble paying your heating and electricity bill?: No Do you have trouble taking care of your child, family member or friend?: No Do you have trouble with day-to-day activities such as bathing, preparing meals, shopping, managing finances, etc.?: No Are you currently unemployed and looking for a job?: No Are you interested in more education?: No Please select the resources that you would like help with: None Currently or been in a relationship where the following occur: No concerns reported THRIVE Score: 0 AUDIT C Alcohol Use Questionnaire (AUDIT-C) 1. How often do you have a drink containing alcohol?: Monthly or less 2. How many drinks containing alcohol do you have on a typical day when you are drinking?: 1 or 2 3. How often do you have six or more drinks on one occasion?: Never Total Score: 1 Score Reviewed/Action Taken: Yes CHANDANA-7 AMB Questionnaire CHANDANA-7 Date HCANDANA - 7 assessed: 07/11/24 Feeling nervous, anxious, or on edge: 0 = Not at all Not being able to stop or control worryin = Not at all Worrying too much about different things: 0 = Not at all Trouble relaxin = Not at all Being so restless that it is hard to sit still: 0 = Not at all Becoming easily annoyed or irritable: 0 = Not at all Feeling afraid as if something awful might happen: 0 = Not at all Total CHANDANA-7 score (0-4 normal; 5-9 mild; 10-14 moderate; 15-21 severe): 0 Source: Developed by Drs. Michi Pérez, Myranda Harrison, Deonte Bowser and colleagues, with an educational patric from [employer]. Review of Systems Const Denies chills, Denies fatigue, Denies fever(s) and Denies headache(s) ENT Denies dysphagia, Denies dizziness, Denies otalgia, Denies headache(s), Denies neck pain, Denies odynophagia and Denies sore throat Card Denies chest pain, Denies palpitations and Denies dyspnea Resp Denies chest congestion, Denies cough and Denies dyspnea GI Denies abdominal pain, Denies constipation, Denies dysphagia, Denies heartburn, Denies diarrhea, Denies nausea, Denies odynophagia and Denies vomiting Denies difficulty voiding, Denies nocturia, Denies dysuria and Denies urinary urgency Musc Reports back pain (left-sided sciatica ), Reports arthralgias (involving multiple joints but especially over the left hip) and Denies neck pain Skin/Breast Denies rash Neuro Denies dizziness and Denies headache(s) Endo Denies fatigue and Denies palpitations Physical exam (Primary Care) Vital Signs: Last Vital Signs Pulse 65 07/11/24 16:06 BP 122/80 07/11/24 16:06 Pulse Ox 96 07/11/24 16:06 Oxygen Delivery Method Room Air 07/11/24 16:06 BMI result Body Mass Index 27.2 Tobacco/Smoking Status: Tobacco use Status Tobacco use date assessed 07/11/24 07/11/24 16:08 Patient Tobacco Use Status Never used Tobacco 07/11/24 16:08 e-Cigarette/Vaping Use Never Used 07/11/24 16:08 PHQ-9: PHQ-9 Score PHQ-9: Total score 0 07/11/24 16:27 Depression Screening Interpretation: Negative Thrive Assessment: Date of Thrive Assessment Date Thrive assessed 07/11/24 07/11/24 16:08 Currently or been in a relationship where the following occur: No concerns reported Const General: no acute distress and alert HENMT Ears: TM's normal bilaterally and EAC's normal Throat: Yes posterior oropharynx normal and Yes tonsils normal (no TP congestion noted) Neck Neck: Yes supple and No lymphadenopathy Thyroid: Thyroid normal Resp Auscultation: clear to auscultation bilaterally, no rales and no wheezes Cardio Rate: regular rate Rhythm: regular rhythm Heart sounds: no murmurs GI Palpation (GI): Soft to palpation and nontender Auscultation: normal bowel sounds General: Yes no CVA tenderness Back/Spine/Pelvis Back: no CVA tenderness Thoracic/Lumbar Spine: lumbar spinal tenderness Sacroiliac joints: on the left tender to palpation (mild) Skin Rashes: no rashes Extrem General: Yes no clubbing, cyanosis or edema Left lower extremity: hip/thigh Details: tenderness Location: of the hip Results Reviewed Results Reviewed: Laboratory Tests 07/08/24 10:11 WBC 8.7 Hgb 12.1 Hct 37.5 Plt Count 237 Sodium 138 Potassium 4.2 Creatinine 1.08 Estimated GFR 49 Fasting Glucose 108 H Hemoglobin A1c % 7.3 H Calcium 10.1 D AST 30 ALT 20 Triglycerides 143 Cholesterol 139 LDL Cholesterol, Calc 83 HDL Cholesterol 28 L 25-OH Vitamin D Total 87.5 TSH 1.81 Ur Specific [place] 1.020 Urine Protein Negative Urine Glucose (UA) Negative Urine Blood Negative Urine Nitrite Negative Ur Leukocyte Esterase Small (1+) H Microalb/Creat Ratio 9.7 Coding Level of Care Code Est Pt Level 4 (10804) Diagnoses Pure hypercholesterolemia E78.00 Type 2 diabetes mellitus with stage 2 chronic kidney disease, without long-term current use of insulin E11.22; N18.2 Chronic kidney disease stage: stage 2 (mild) Diabetes mellitus shelter insulin use: without shelter use Chronic kidney disease (CKD), stage II (mild) N18.2 Benign essential hypertension I10 GERD without esophagitis K21.9 Degeneration of intervertebral disc of lumbar region with discogenic back pain and lower extremity pain M51.362 Disc-related pain type: discogenic back pain and lower extremity pain Left hip pain M25.552 Vitamin D deficiency E55.9 Overweight (BMI 25.0-29.9) E66.3 Additional Codes PHQ-9 - 69954 - PHQ-9 Billing: Yes ([id number]) Assessment & Plan Assessment & Plan (1) Pure hypercholesterolemia: Code(s): E78.00 - Pure hypercholesterolemia, unspecified Category: Medical Plan: Results of her labs done a few days ago reviewed and discussed with patient Reinforced low cholesterol diet Continue Lovastatin 40 mg QD Will recheck her labs and fasting lipids in 4 months for follow-up (2) Type 2 diabetes mellitus with diabetic chronic kidney disease: Code(s): E11.22 - Type 2 diabetes mellitus with diabetic chronic kidney disease Category: Medical Qualifiers: Chronic kidney disease stage: stage 2 (mild) 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 Qualified Code(s): E11.22 - Type 2 diabetes mellitus with diabetic chronic kidney disease; N18.2 - Chronic kidney disease, stage 2 (mild) Plan: Her HgbA1c remains unchanged at 7.3% on her labs done a few days ago (was previously also at 7.3% a few months ago) - goal is < 7.0% Reinforced diabetic diet Continue Metformin 500 mg 2 tablets BID and Basaglar 50 units Q HS Will recheck her HgbA1c and FBS in 4 months for follow up (3) Chronic kidney disease (CKD), stage II (mild): Code(s): N18.2 - Chronic kidney disease, stage 2 (mild) Category: Medical Plan: Stable Reinforced increased oral fluids and she is again reminded to completely avoid taking any NSAIDs Will have her recheck her labs in 4 months for follow up (4) Benign essential hypertension: Code(s): I10 - Essential (primary) hypertension Category: Medical Plan: Reinforced low-sodium diet -? goal is systolic BP of at least 130 to 140 mm or less Continue Amlodipine -Benazepril 5-20 mg QD, Metoprolol ER 50 mg QD and Spironolactone-HCTZ 25-25 QD (5) GERD without esophagitis: Code(s): K21.9 - Gastro-esophageal reflux disease without esophagitis Category: Medical Plan: Dietary restrictions reinforced Continue Omeprazole 20 mg QD (6) Lumbar degenerative disc disease: Code(s): M51.36 - Other intervertebral disc degeneration, lumbar region Category: Medical Qualifiers: Disc-related pain type: discogenic back pain and lower extremity pain Qualified Code(s): M51.362 - Other intervertebral disc degeneration, lumbar region with discogenic back pain and lower extremity pain Plan: Reinforced activity and weight lifting restrictions Continue Oxycodone-Acetaminophen 5-325 mg every 8 hours only as needed Follow up with pain management as scheduled (7) Left hip pain: Code(s): M25.552 - Pain in left hip Category: Medical Plan: Patient was seen by pain management last month and was advised that her recent left-sided sciatica/radicular symptoms are likely due to her left hip pathology (osteoarthritis) and has been sent for physical therapy of her left hip, which she is currently attending (8) Vitamin D deficiency: Code(s): E55.9 - Vitamin D deficiency, unspecified Category: Medical Plan: Continue Vitamin D3 2000 units QD (9) Overweight (BMI 25.0-29.9): Code(s): E66.3 - Overweight Category: Medical Plan: Reinforced diet/exercise as tolerated/lose weight Plan Follow up in 4 months Orders: Orders Complete Blood Count Auto Diff 4 Months D64.9 - Anemia, unspecified Comprehensive [place]. Panel Fast 4 Months E78.00 - Pure hypercholesterolemia, unspecified Hemoglobin A1c 4 Months E11.9 - Type 2 diabetes mellitus without complications Lipid Panel 4 Months E78.00 - Pure hypercholesterolemia, unspecified Microalbumin, Random (w Creat) 4 Months E11.9 - Type 2 diabetes mellitus without complications TSH reflex Free T4 4 Months E78.00 - Pure hypercholesterolemia, unspecified UA CC w/rflx Micro + Cult 4 Months R30.0 - Dysuria
== END 2024-07-11 16:43 | disposition home or self-care (01) ==
LOC: HO.HMCH 16:00
PROVIDERS: PCP Internal Medicine; Visit Provider Internal Medicine
DX: E78.00 Pure hypercholesterolemia, unspecified (principal); E11.22 Type 2 diabetes mellitus with diabetic chronic kidney disease; N18.2 Chronic kidney disease, stage 2 (mild); I12.9 Hypertensive chronic kidney disease with stage 1 through stage 4 chronic kidney disease, or unspecified chronic kidney disease; K21.9 Gastro-esophageal reflux disease without esophagitis; M51.362 Other intervertebral disc degeneration, lumbar region with discogenic back pain and lower extremity pain; M25.552 Pain in left hip; E55.9 Vitamin D deficiency, unspecified; E66.3 Overweight

== ENCOUNTER → 2024-07-11 15:59 | Outpatient (BNVA) | payer MEDICARE, SELFPAY | PROVIDERS: PCP Internal Medicine; Visit Provider Internal Medicine | DX: E11.22 Type 2 diabetes mellitus with diabetic chronic kidney disease (principal); I12.9 Hypertensive chronic kidney disease with stage 1 through stage 4 chronic kidney disease, or unspecified chronic kidney disease; N18.2 Chronic kidney disease, stage 2 (mild); E78.00 Pure hypercholesterolemia, unspecified; K21.9 Gastro-esophageal reflux disease without esophagitis; M51.362 Other intervertebral disc degeneration, lumbar region with discogenic back pain and lower extremity pain; M25.552 Pain in left hip; E55.9 Vitamin D deficiency, unspecified; E66.3 Overweight; Z68.27 Body mass index [BMI] 27.0-27.9, adult; Z79.4 Long term (current) use of insulin; Z79.84 Long term (current) use of oral hypoglycemic drugs; Z79.899 Other long term (current) drug therapy; Z13.31 Encounter for screening for depression; Z13.30 Encounter for screening examination for mental health and behavioral disorders, unspecified | CPT/HCPCS: 96127; 99212 ==

== ENCOUNTER 2024-07-15 06:15 | Outpatient (REF) | payer MEDICARE, SELFPAY ==
--- NOTE | ~2024-07-15 | FL_ITS ---
EXAMINATION: FLUOROSCOPY GUIDANCE FOR NEEDLE PLACEMENT CLINICAL INFORMATION: M16.12 - Unilateral primary osteoarthritis, left hip COMPARISON: None available. FINDINGS/ FL/FL guidance in treatment room IMPRESSION: Fluoroscopy images of left hip reveal needle positioned in the hip joint space with contrast opacifying the joint space. The reading is performed just for documentation No radiologist present during the procedure. Fluoroscopy time: 0.1 minutes. Dose area product: 0.0691 mGy/m2 Electronically signed by: Lai Dong MD 07/15/2024 12:06 PM EDT
--- OUTSIDE RECORDS SUMMARY | 2024-07-15 06:16 | XMS_ITS | Clinical Summary ---
Author Organization [facility] [address] [place] [address] [place] [phone] Phone Care Team Providers Care Optics Engineer Name Role Phone Joselito Almanza MD Primary Care Provider [phone] Medications lovastatin (MEVACOR) 40 mg tablet Take 1 tablet (40 mg total) by mouth at bedtime. Active amLODIPine-callie zepril (LOTREL) 5-20 mg per capsule Take 1 capsule by mouth 1 (one) time each day. Active metFORMIN (GLUCOPHAGE) 500 mg tablet Take 1 tablet (500 mg total) by mouth 2 (two) times a day with meals. Active spironolactone- hydroCHLOROthia zide (ALDACTAZIDE) 25-25 mg [...] TAKE 1 TABLET DAILY 90 tablet 3 06/10/2024 Active Active Problems Problem Noted Date Diagnosed Date CKD stage 3a, GFR 45-59 ml/min ([facility] V24, [facility] V28) 04/16/2024 Type 2 DM with CKD stage 3 a nd hypertension ([facility] V24, [facility] V28) 04/16/2024 Essential hypertension, benign Overview (04/16/2024): DX:Essential hypertension, benign Encounters Date Type Department Care Team Description 04/16/2024 1:00 PM EST Office Visit Nephrology - [address] [phone] Tony Coombs MD CKD stage 3a, GFR 45-59 ml/min ([facility] V24, [facility] V28) (Primary Dx); Essential hypertension, benign; Type 2 DM with CKD stage 3 and hypertension ([facility] V24, [facility] V28) from Last 3 Months Surgical History Surgery Date Site/Laterality Comments TONSILLECTOMY 1968 PROCEDURE: HISTORICAL TONSILLECTOMY OTHER SURGICAL HISTORY 08/09/04 PROCEDURE: [place] HEMORRHOIDECTOMY NTRNL & XTRNL 1 COLUMN/GROUP COLONOSCOPY 03/06/2001 PROCEDURE: [place] COLONOSCOPY FLX DX W/COLLJ SPEC WHEN PFRMD; COMMENT: Negative. MULTIPLE TOOTH EXTRACTIONS PROCEDURE: HISTORICAL DENTAL EXTRACTION COLONOSCOPY 08/03/2011 PROCEDURE: [place] COLONOSCOPY FLX DX W/COLLJ SPEC WHEN PFRMD; [...] 3:15 PM EST Office Visit Nephrology - [id number] [place], [place] [phone] Tony Coombs MD [address] [facility] [address] [place] [address] Health Maintenance Due Date Last [...] LAB CHEMISTRY METHOD 12/24/2023 3:40 PM EST [facility] Microalb, Ur 56.5(H) 0.0 - 29.0 mg/L LAB CHEMISTRY METHOD 12/24/2023 3:40 PM EST [facility] Microalb/Crea t Ratio 19 <30 mg/g creat LAB CHEMISTRY METHOD 12/24/2023 3:40 PM EST [facility] Urine Urine specimen obtained by clean catch procedure / Unknown Non-blood Collection / Unknown 12/24/2023 12:59 PM EST 12/24/2023 12:59 PM EST Tony Coombs MD LAB URINE ORDERABLES Final Resu lt [facility] [address] [place] [address], [place] [phone] * (ABNORMAL) Creatinine (12/24/2023 12:59 PM EST) Creatinine 1.16(H) 0.50 - 1.10 mg/dL LAB CHEMISTRY METHOD 12/24/2023 4:54 PM EST [facility] eGFR 50(L) >=60 mL/min/1. 73m2 LAB CHEMISTRY METHOD 12/24/2023 4:54 PM EST [facility] Comment:Calculation based on the??Chronic Kidney Disease Epidemiology Collaboration (CKD-EPI) equation refit??without adjustment for race. Blood Venous blood specimen / Unknown Venipuncture / Unknown 12/24/2023 12:59 PM EST 12/24/2023 12:59 PM EST Tony Coombs MD LAB BLOOD ORDERABLES Final Resu lt [facility] [address] [place] [address], [place] [phone] from Last 3 Months or Most Recently Relevant to Health Maintenance Insurance [facility] Care Teams Optics Engineer Relationship Specialty Start Date End Date Joselito Almanza MD [address] [place] [address] [address] [place] PCP - General Internal Medicine 12/16/19
== END 2024-07-15 06:16 | disposition home or self-care (01) ==
LOC: CF 06:15
PROVIDERS: Visit Provider Anesthesiology
DX: M16.12 Unilateral primary osteoarthritis, left hip (principal)
CPT/HCPCS: 20610; 77002; J2003; J2795; J3301; Q9967

== ENCOUNTER 2024-07-15 10:33 | Outpatient (AMB) | payer MEDICARE, SELFPAY ==
[2024-07-15 10:38] VITALS: BP 140/90; PULSE 80; RESP 20; O2SAT 99
--- NOTE | 2024-07-15 10:38 | A.OFFVIS_ITS ---
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 Allergies fluticasone [From FLONASE] Adverse Reaction (Intermediate, Verified 07/15/24 10:40) NAUSEA PFSH Medical History Allergic rhinitis Seborrheic dermatitis of scalp Overweight (BMI 25.0-29.9) Lumbar degenerative disc disease Vitamin D deficiency GERD without esophagitis Pure hypercholesterolemia Benign essential hypertension Chronic kidney disease (CKD), stage II (mild) Type 2 diabetes mellitus with diabetic chronic kidney disease Surgical History History of hysteroscopy (~11/2005) History of colonoscopy History of hemorrhoidectomy History of tonsillectomy Family History Mother Dementia Emphysema lung Father Emphysema lung Other Family history non-contributory Social History Housing: House Alcohol intake: current Alcohol intake frequency: holidays/special occasions only Alcohol type: wine Patient Tobacco Use Status: Never used Tobacco e-Cigarette/Vaping Use: Never Used Second Hand Smoke Exposure: Yes service: No Current occupational status: retired Cognitive needs: No Hearing needs: No Vision needs: Yes (wear glasses) Physical Exam Vital Signs: Last Vital Signs Pulse 74 07/15/24 11:18 Resp 18 07/15/24 11:18 BP 132/72 07/15/24 11:18 Pulse Ox 99 07/15/24 11:18 Oxygen Delivery Method Room Air 07/15/24 11:18 Assessment & Plan Assessment & Plan (1) Osteoarthritis of left hip: Code(s): M16.12 - Unilateral primary osteoarthritis, left hip Category: Medical Plan Intra-articular left hip steroid injection. Informed consent was explained to the patient. All questions were explained and? answered. The patient was taken inside the operating room where she was positioned right lateral decubitus on the operating table.? Time-out was performed delineating correct site, side, the nature of the procedure, patient's allergy, preoperative antibiotic if needed.? All operating room staff was participating in OR time-out procedure.? The patient stated his name. Non dependent left hip was prepped with ChloraPrep and draped with sterile towels.? The C-arm was brought over the operating field and the picture of bilateral hip joints were obtained on the screen.? The smaller left hip joint was chosen as the target for the injection.? The trochanter position was noted on the screen.? The projection of the trochanter to the skin was noted, the direction of the femoral neck was noted.? The skin was anesthetized using 2% lidocaine at the trochanter area.? 22 gauge 5 in needle was inserted through the skin and advanced to the hip joint silhouette on under intermittent lateral and anterior posterior views.? When needle entered the Silhouette of the joint injection of the contrast Omnipaque was performed demonstrating intra-articular spread of the contrast.? After that 4 cc of ropivacaine 0.5% mixed with Kenalog 40 mg was injected into the area.?,upon completion of the procedure the needle was removed and Band-Aid was applied. Orders: Orders FL guidance in treatment room Today M16.12 - Unilateral primary osteoarthritis, left hip Coding Level of Care Code Procedure Only Diagnoses Osteoarthritis of left hip M16.12
[2024-07-15 11:18] VITALS: BP 132/72; PULSE 74; RESP 18; O2SAT 99
== END 2024-07-15 11:20 | disposition home or self-care (01) ==
LOC: HO.PMCPRC 10:33
PROVIDERS: PCP Internal Medicine; Visit Provider Anesthesiology
DX: M16.12 Unilateral primary osteoarthritis, left hip (principal)
CPT/HCPCS: 20610; 77002

== ENCOUNTER 2024-07-24 11:00 | Outpatient (RCR) | payer MEDICARE, SELFPAY ==
--- NOTE | 2024-06-25 11:57 | MHC.PT.EP ---
[facility] [place] Office [place] Office [place] Office [address] Roxie Lugo [address] [phone] F: [phone] F: [phone] F: [phone] F: [phone] Physical Therapy Plan of Care Date of Evaluation: 06/25/24 Date of Surgery: Diagnosis: This is a 74 yo female presenting to skilled PT with a script for spondylosis lumbar region. Assessment: This is a 74 yo female presenting to skilled PT with a script for spondylosis lumbar region. Patient is here with pain ongoing for many years with symptoms getting worse the last year and a half. Her pain has been over time without injury. Pain is located L side low back, L hip and then across the low back. Pain is sharp and comes and goes. She reports that she was diagnosed with L hip OA and will be getting a steroid injection on 07/15/24 but was not referred to an ortho yet. Pain increases with walking and household tasks. Pain improves with sitting and leaning back. She does endorse a few falls recently tripping over a small fence, slipping on the ice. She uses back brace, heat, medication, hip abductor pillow for pain relief. She also reports pain in the L UE from a fall. Assessment reveals pain that ranges from up to a 6/10 at the worst. Patient demos decreased lumbar and thoracic ROM as well as hip restrictions, strength of core, back and hips, TTP at L side lower thoracic, upper lumbar and impaired posture with forward head, forward trunk, scoliosis and rounded shoulders. Based on functional limitations, impaired QOL and pain tolerance patient is a good candidate for skilled PT 2x/wk for 4wks but patient would like to do 4 sessions. Frequency and Duration: The patient will be seen 2x/wk for 4wks Short Term Goals: Pt will demonstrate improved postural awareness and understanding of core engagement with supine and standing tasks without cues throughout session to improve overall back safety in 2 weeks. Pt will demonstrate centralization of sx in 2 weeks. Pt will continue to reinforce precautions, sitting, standing and ADL modifications with proper body mechanics in 2 wks. Personnel Administrator Goals: Pt will demonstrate improved outcome measure by 5 points in 4 weeks for improved functional mobility. Pt will demonstrate ability to bend and lift WNL min to no pain for household tasks in 4 wks. Pt will be I in HEP and compliant in 4wks Treatment Plan: Modalities to reduce pain, spasms and effusion. Manual therapy to restore motion and function. Therapeutic exercise to improve strength and flexibility. Neuromuscular re-education for posture and balance. Therapeutic activities to return to functional activities of daily living. Electronically signed by: Kenzie Salinas, PT Please sign and return to therapist. Thank you for your referral.
--- NOTE | 2024-08-20 09:02 | MHC.PT.DC ---
[facility] [place] Office [place] Office [place] Office [address] Roxie Lugo [address] [phone] F: [phone] F: [phone] F: [phone] F: [phone] Physical Therapy Discharge Report Diagnosis: This is a 74 yo female presenting to skilled PT with a script for spondylosis lumbar region. Date of Surgery: Date of Evaluation: 06/25/24 Date of Discharge: 08/20/24 Treatments to Date: 4 Cancellations to Date: 0 No Shows to Date: 0 Discharge Status: Achieved Goals Independent with HEP Patient Elected to Stop Recommend MD Follow-up Discharge Summary: 07/24: Pt has come to 4 sessions of PT. She is I in her program, feels like she is ready to transition to self management. I will keep her chart open for 30 days and then DC as needed. She was complaining of L shoulder symptoms as well which I educated her to speak with MD about as she fell on concrete and this may warrant imaging. She demos WFL ROM, strength and transfers. DC to HEP. Electronically signed by: Kenzie Salinas PT Please sign and return to therapist. Thank you for your referral.
== END 2024-08-20 09:02 | disposition home or self-care (01) ==
LOC: HO.PTCHIC 11:00
PROVIDERS: PCP Internal Medicine; Visit Provider Anesthesiology
DX: G89.4 Chronic pain syndrome (principal); M47.816 Spondylosis without myelopathy or radiculopathy, lumbar region; M16.12 Unilateral primary osteoarthritis, left hip; M51.369 Other intervertebral disc degeneration, lumbar region without mention of lumbar back pain or lower extremity pain
CPT/HCPCS: 97110; 97112; 97140; 97162

== ENCOUNTER 2024-08-07 15:32 | Outpatient (AMB) | payer MEDICARE, SELFPAY ==
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
[2024-08-07 15:44] VITALS: BP 111/79; PULSE 90; RESP 18; O2SAT 100
--- OUTSIDE RECORDS SUMMARY | 2024-08-07 19:11 | XMS_ITS | Clinical Summary ---
Author Organization [facility] [address] [place] [address] [place] [phone] Phone Care Team Providers Care Junior Qa Analyst Name Role Phone Joselito Almanza MD Primary Care Provider [phone] Medications lovastatin (MEVACOR) 40 mg tablet Take [...] Date CKD stage 3a, GFR 45-59 ml/min ([facility] V24, [facility] V28) 04/16/2024 Type 2 DM with CKD stage 3 a nd hypertension ([facility] V24, [facility] V28) 04/16/2024 Essential hypertension, benign Overview (04/16/2024): DX:Essential hypertension, benign Surgical History Surgery Date Site/Laterality Comments TONSILLECTOMY [...] 3:15 PM EST Office Visit Nephrology - [place] [id number] [place], [place] [phone] Tony Coombs MD [address] [place] [address] Health Maintenance Due Date Last Done Comments Diabetes: Annual Foot Exam 1959 Diabetes: Annual Retina Eye Exam 1959 Hepatitis A Vaccines (1 of 2 - Risk 2-dose series) 1968 Hepatitis B Vaccines (1 of 3 - Risk 3-dose series) 2009 Zoster Vaccines (1 of 2) 03/15/2012 01/19/2012 Pneumococcal Vaccine: 50+ Years (3 [...] LAB CHEMISTRY METHOD 12/24/2023 3:40 PM EST [facility] Microalb, Ur 56.5(H) 0.0 - 29.0 mg/L LAB CHEMISTRY METHOD 12/24/2023 3:40 PM EST [facility] Microalb/Crea t Ratio 19 <30 mg/g creat LAB CHEMISTRY METHOD 12/24/2023 3:40 PM EST [facility] Urine Urine specimen obtained by clean catch procedure / Unknown Non-blood Collection / Unknown 12/24/2023 12:59 PM EST 12/24/2023 12:59 PM EST Tony Coombs MD LAB URINE ORDERABLES Final Resu lt Performing Organization Address [facility]/ZIP Co de Phone Number [facility] [address] [place] [address], [place] [phone] * (ABNORMAL) Creatinine (12/24/2023 12:59 PM EST) Creatinine 1.16(H) 0.50 - 1.10 mg/dL LAB CHEMISTRY METHOD 12/24/2023 4:54 PM EST [facility] eGFR 50(L) >=60 mL/min/1. 73m2 LAB CHEMISTRY METHOD 12/24/2023 4:54 PM EST [facility] Comment:Calculation based on the Chronic Kidney Disease Epidemiology Collaboration (CKD-EPI) equation refit without adjustment for race. Blood Venous blood specimen / Unknown Venipuncture / Unknown 12/24/2023 12:59 PM EST 12/24/2023 12:59 PM EST Tony Coombs MD LAB BLOOD ORDERABLES Final Resu lt Performing Organization Address [facility] Co de Phone Number [facility] [address] [place] [address], [place] [phone] from Last 3 Months or Most Recently Relevant to Health Maintenance Insurance [facility] Care Teams Junior Qa Analyst Relationship Specialty Start Date End Date Joselito Almanza MD [address] [place] [address] [address] BRIANDA Trevino PCP - General Internal Medicine 12/16/19
== END 2024-08-07 16:15 | disposition home or self-care (01) ==
PROVIDERS: PCP Internal Medicine; Visit Provider Anesthesiology
DX: M47.816 Spondylosis without myelopathy or radiculopathy, lumbar region (principal); M51.362 Other intervertebral disc degeneration, lumbar region with discogenic back pain and lower extremity pain; G89.4 Chronic pain syndrome; M16.12 Unilateral primary osteoarthritis, left hip
CPT/HCPCS: 99214

== ENCOUNTER → 2024-08-07 15:32 | Outpatient (BNVA) | payer MEDICARE, SELFPAY | PROVIDERS: PCP Internal Medicine; Visit Provider Anesthesiology | DX: M47.816 Spondylosis without myelopathy or radiculopathy, lumbar region (principal); M51.362 Other intervertebral disc degeneration, lumbar region with discogenic back pain and lower extremity pain; G89.4 Chronic pain syndrome; M16.12 Unilateral primary osteoarthritis, left hip | CPT/HCPCS: 99212 ==

== ENCOUNTER 2024-08-08 14:28 | Outpatient (REF) | payer MEDICARE, SELFPAY ==
--- NOTE | ~2024-08-08 | XR_ITS ---
EXAMINATION: XR SHOULDER, LEFT CLINICAL INFORMATION: M25.512 - Pain in left shoulder COMPARISON: None available. TECHNIQUE: AP external rotation, Grashey, scapular Y, and axillary views of the left shoulder. FINDINGS: No acute cortical disruption or malalignment. No lytic or blastic lesions. No metallic or radiopaque foreign body. No subcutaneous emphysema. XR/XR shoulder LT min 2V IMPRESSION: No acute fracture or dislocation. No gross degenerative changes. Negative x-ray. Electronically signed by: Jony Nathan MD 08/08/2024 03:25 PM EDT
--- OUTSIDE RECORDS SUMMARY | 2024-08-08 14:49 | XMS_ITS | Clinical Summary ---
Author Organization [facility] [address] [place] [address] [place] [phone] Phone Care Team Providers Care Nutritionists Name Role Phone Joselito Almanza MD Primary Care Provider [phone] Medications lovastatin (MEVACOR) 40 mg tablet Take [...] Date CKD stage 3a, GFR 45-59 ml/min ([facility] V24, [facility] V28) 04/16/2024 Type 2 DM with CKD stage 3 a nd hypertension ([facility] V24, [facility] V28) 04/16/2024 Essential hypertension, benign Overview (04/16/2024): DX:Essential hypertension, benign Surgical History Surgery Date Site/Laterality Comments TONSILLECTOMY 1968 PROCEDURE: HISTORICAL TONSILLECTOMY OTHER SURGICAL HISTORY 08/09/04 PROCEDURE: [place] HEMORRHOIDECTOMY NTRNL & XTRNL 1 COLUMN/GROUP COLONOSCOPY 03/06/2001 PROCEDURE: [place] COLONOSCOPY FLX DX W/COLLJ SPEC WHEN PFRMD; COMMENT: Negative. MULTIPLE TOOTH EXTRACTIONS PROCEDURE: HISTORICAL DENTAL EXTRACTION COLONOSCOPY 08/03/2011 PROCEDURE: [place] COLONOSCOPY FLX DX W/COLLJ SPEC WHEN PFRMD; [...] 3:15 PM EST Office Visit Nephrology - [place] [id number] [place], [place] [phone] Tony Coombs MD [address] [place] [address] Health Maintenance Due Date Last [...] ORDERABLES Final Resu lt Performing Organization Address [facility]/ZIP Co de Phone Number [facility] [address] [place] [address], [place] [phone] * (ABNORMAL) Creatinine (12/24/2023 12:59 PM EST) Creatinine 1.16(H) 0.50 - 1.10 mg/dL LAB CHEMISTRY METHOD 12/24/2023 4:54 PM EST [facility] eGFR 50(L) >=60 mL/min/1. 73m2 LAB CHEMISTRY METHOD 12/24/2023 4:54 PM EST [facility] Comment:Calculation based on the Chronic Kidney Disease Epidemiology Collaboration (CKD-EPI) equation refit without adjustment for race. Blood Venous blood specimen / Unknown Venipuncture / Unknown 12/24/2023 12:59 PM EST 12/24/2023 12:59 PM EST Tony Coombs MD LAB BLOOD ORDERABLES Final Resu lt Performing Organization Address [facility] Co de Phone Number [facility] [address] [place] [address], [place] [phone] from Last 3 Months or Most Recently Relevant to Health Maintenance Insurance [facility] Care Teams Nutritionists Relationship Specialty Start Date End Date Joselito Almanza MD [address] [place] [address] [address] BRIANDA Trevino PCP - General Internal Medicine 12/16/19
== END 2024-08-08 14:29 | disposition home or self-care (01) ==
LOC: HO.HMGCX 14:28
PROVIDERS: PCP Internal Medicine; Visit Provider Anesthesiology
DX: M25.512 Pain in left shoulder (principal)
CPT/HCPCS: 73030

== ENCOUNTER → 2024-08-08 14:35 | Outpatient (BNV) | payer MEDICARE, SELFPAY | PROVIDERS: PCP Internal Medicine; Visit Provider Radiology Diagnostic Radiology | DX: M25.512 Pain in left shoulder (principal) | CPT/HCPCS: 73030 ==

== ENCOUNTER 2024-08-27 10:56 | Outpatient (AMB) | payer MEDICARE, SELFPAY ==
[2024-08-27 11:20] VITALS: BP 107/55; PULSE 95; RESP 18; O2SAT 96
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
--- OUTSIDE RECORDS SUMMARY | 2024-08-27 11:48 | XMS_ITS | Clinical Summary ---
Author Organization [facility] [address] [place] [address] [place] [phone] Phone Care Team Providers Care Fire Prevention Chief Name Role Phone Joselito Almanza MD Primary Care Provider [phone] Medications lovastatin (MEVACOR) 40 mg tablet Take [...] Date CKD stage 3a, GFR 45-59 ml/min ([facility] V24, [facility] V28) 04/16/2024 Type 2 DM with CKD stage 3 a nd hypertension ([facility] V24, [facility] V28) 04/16/2024 Essential hypertension, benign Overview (04/16/2024): DX:Essential hypertension, benign Surgical History Surgery Date Site/Laterality Comments TONSILLECTOMY 1968 PROCEDURE: HISTORICAL TONSILLECTOMY OTHER SURGICAL HISTORY 08/09/04 PROCEDURE: MD HEMORRHOIDECTOMY NTRNL & XTRNL 1 COLUMN/GROUP COLONOSCOPY 03/06/2001 PROCEDURE: MD COLONOSCOPY FLX DX W/COLLJ SPEC WHEN PFRMD; COMMENT: Negative. MULTIPLE TOOTH EXTRACTIONS PROCEDURE: HISTORICAL DENTAL EXTRACTION COLONOSCOPY 08/03/2011 PROCEDURE: MD COLONOSCOPY FLX DX W/COLLJ SPEC WHEN PFRMD; [...] 3:15 PM EST Office Visit Nephrology - [place] [address] [place], [place] [phone] Tony Coombs MD [address] [place] [address] Health Maintenance Due Date Last [...] Panel) 01/21/2022 Colorectal Cancer Screening: Colonoscopy 01/21/2022 Diabetes: Blood Sugar Control Test (HGBA1C) 01/21/2022 Falls Risk Assessment 01/21/2022 Hepatitis C Screening 01/21/2022 Osteoporosis Screening (Bone Density Screening) 01/21/2022 Social Influencers of Health Screening 01/21/2022 DTaP,Tdap,and Td Vaccines (4 - Td or Tdap) 09/09/2022 09/09/2012, 07/22/2008, 02/12/1998 Depression Screening 02/13/2024 RSV Immunization Adult Patients (1 - 1-dose 75+ series) 2024 COVID-19 Vaccine (7 - Pfizer risk 2023- season) 2024 02/11/2024, 03/03/2023, 11/01/2021, Additional history exists Influenza Vaccine (#1) 2024 , 03/03/2023, 12/05/2021, Additional history exists Diabetes: Annual Urine Albumin-Creatinine Ratio (uACR) 12/23/2024 12/24/2023, 12/24/2023 Diabetes: Annual GFR (Glomerular Filtration Rate) [...] LAB CHEMISTRY METHOD 12/24/2023 3:40 PM EST [facility] Microalb, Ur 56.5(H) 0.0 - 29.0 mg/L LAB CHEMISTRY METHOD 12/24/2023 3:40 PM EST [facility] Microalb/Crea t Ratio 19 <30 mg/g creat LAB CHEMISTRY METHOD 12/24/2023 3:40 PM EST [facility] Urine Urine specimen obtained by clean catch procedure / Unknown Non-blood Collection / Unknown 12/24/2023 12:59 PM EST 12/24/2023 12:59 PM EST us Tony Coombs MD LAB URINE ORDERABLES Final Resu lt Performing Organization Address [facility]/ZIP Co de Phone Number [facility] [address] [place] [address], [place] [phone] * (ABNORMAL) Creatinine (12/24/2023 12:59 PM EST) Creatinine 1.16(H) 0.50 - 1.10 mg/dL LAB CHEMISTRY METHOD 12/24/2023 4:54 PM EST [facility] eGFR 50(L) >=60 mL/min/1. 73m2 LAB CHEMISTRY METHOD 12/24/2023 4:54 PM EST [facility] Comment:Calculation based on the Chronic Kidney Disease Epidemiology Collaboration (CKD-EPI) equation refit without adjustment for race. Blood Venous blood specimen / Unknown Venipuncture / Unknown 12/24/2023 12:59 PM EST 12/24/2023 12:59 PM EST us Tony Coombs MD LAB BLOOD ORDERABLES Final Resu lt Performing Organization Address [facility] Co de Phone Number [facility] [address] [place] [address], [place] [phone] from Last 3 Months or Most Recently Relevant to Health Maintenance Insurance [facility] Care Teams Fire Prevention Chief Relationship Specialty Start Date End Date Joselito Almanza MD [address] [place] [address] [address] [place] PCP - General Internal Medicine 12/16/19
--- OUTSIDE RECORDS SUMMARY | 2024-08-27 11:48 | XMS_ITS | Clinical Summary ---
Author Organization [facility] Facility Address [address] [place] [address] Care Team Providers Care Car Cleaner Name Role Phone Unavailable Primary Care Provider [...] Cancer Screening: Sigmoidoscopy 1998 Influenza Vaccine (#1) 2024 Hepatitis B Vaccine Aged Out No longe r eligible based on patient's age to complete this topic
== END 2024-08-27 11:36 | disposition home or self-care (01) ==
LOC: HO.PMC 10:56
PROVIDERS: PCP Internal Medicine; Visit Provider Anesthesiology
DX: M47.816 Spondylosis without myelopathy or radiculopathy, lumbar region (principal); M51.362 Other intervertebral disc degeneration, lumbar region with discogenic back pain and lower extremity pain; G89.4 Chronic pain syndrome; M16.12 Unilateral primary osteoarthritis, left hip; M25.512 Pain in left shoulder
CPT/HCPCS: 99213

== ENCOUNTER → 2024-08-27 10:56 | Outpatient (BNVA) | payer MEDICARE, SELFPAY | PROVIDERS: PCP Internal Medicine; Visit Provider Anesthesiology | DX: M47.816 Spondylosis without myelopathy or radiculopathy, lumbar region (principal); M51.362 Other intervertebral disc degeneration, lumbar region with discogenic back pain and lower extremity pain; M16.12 Unilateral primary osteoarthritis, left hip; M25.512 Pain in left shoulder; G89.4 Chronic pain syndrome | CPT/HCPCS: 99212 ==

== ENCOUNTER 2024-10-23 11:00 | Outpatient (RCR) | payer MEDICARE, SELFPAY ==
--- NOTE | 2024-09-25 12:29 | MHC.PT.EP ---
[facility] [place] Office [place] Office [place] Office [address] Roxie Lugo [address] [phone] F: [phone] F: [phone] F: [phone] F: [phone] Physical Therapy Plan of Care Date of Evaluation: 09/25/24 Date of Surgery: n/a Diagnosis: L shoulder pain Assessment: Patient is a 74 year old female presenting to PT with complaints of pain in L shoulder pain. Pt reports onset of pain began May due to falling on her shoulder. She presents today with impairments in pain, ROM, shoulder strength, posture. Pt's current occupation is retired, with baseline physical activities including reaching, ADLs, household duties. Pt expresses mcc goal of reducing pain, and is motivated to work towards this in PT. Clinical presentation today is most consistent with signs and sx associated with L shoulder pain and pt will benefit from skilled PT 2 week x 4 weeks to address the following problems and impairments noted upon evaluation: pain, ROM, shoulder strength, posture. These problems limit the patient with the following functional activities: reaching, ADLs, household duties. The prescribed treatment plan of care is medically necessary. Co-morbidities of T2DM were identified and taken into considerations of plan of care. Pt was educated on HEP, role of PT, prognosis, POC. Frequency and Duration: The patient will be seen 2 x week x 4 weeks Short Term Goals: Pt will demonstrate symmetrical shoulder ROM in 2 weeks. Pt will demonstrate improved L shoulder strength by 1/3 grade in 2 weeks. Pt will require min to no cues for postural correction with exercises in 2 weeks. Trade Recruiter Goals: Pt will demonstrate improved SPADI score by 13 points in 4 weeks for improved functional mobility. Pt will demonstrate ability to reach with min to no pain in 4 weeks for return to PLOF. Pt will demonstrate ability to complete household duties with min to no pain in 4 weeks for return to PLOF. Treatment Plan: Modalities to reduce pain, spasms and effusion. Manual therapy to restore motion and function. Therapeutic exercise to improve strength and flexibility. Neuromuscular re-education for posture and balance. Therapeutic activities to return to functional activities of daily living. Electronically signed by: Mile Dillon, PT, DPT, ATC Please sign and return to therapist. Thank you for your referral.
--- NOTE | 2024-11-06 07:18 | MHC.PT.DC ---
[facility] [place] Office [place] Office [place] Office [address] Roxie Lugo [address] [phone] F: [phone] F: [phone] F: [phone] F: [phone] Physical Therapy Discharge Report Diagnosis: L shoulder pain Date of Surgery: n/a Date of Evaluation: 09/25/24 Date of Discharge: 11/06/24 Treatments to Date: 6 Cancellations to Date: 3 No Shows to Date: 0 Discharge Status: Patient Elected to Stop Discharge Summary: Pt cancelled her last remaining appointments and did not want to be rescheduled. Therefore to be d/c per her request. Electronically signed by: Mile Dillon, PT, DPT, ATC Please sign and return to therapist. Thank you for your referral.
== END 2024-11-06 07:18 | disposition home or self-care (01) ==
LOC: HO.PTCHIC 11:00
PROVIDERS: PCP Internal Medicine; Visit Provider Anesthesiology
DX: M25.512 Pain in left shoulder (principal)
CPT/HCPCS: 97110; 97140; 97161

== ENCOUNTER 2024-10-29 11:18 | Outpatient (AMB) | payer MEDICARE, SELFPAY ==
[2024-10-29 11:25] VITALS: BP 108/51; PULSE 93; RESP 18; O2SAT 96; BMI 27.2
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
--- OUTSIDE RECORDS SUMMARY | 2024-10-29 14:33 | XMS_ITS | Clinical Summary ---
Author Organization [facility] Facility Address [address] [address] Care Team Providers Care Billiard Player Name Role Phone Unavailable Primary Care Provider [...]
--- OUTSIDE RECORDS SUMMARY | 2024-10-29 14:33 | XMS_ITS | Clinical Summary ---
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 MULTIPLE TOOTH EXTRACTIONS PROCEDURE: HISTORICAL DENTAL EXTRACTION COLONOSCOPY 08/03/2011 PROCEDURE: [place] COLONOSCOPY FLX DX W/COLLJ SPEC WHEN PFRMD; [...] 3:15 PM EST Office Visit Nephrology - [place] [address] [place], [place] [phone] Tony Coombs MD [address] [place] [address] Health Maintenance Due Date Last [...] LAB CHEMISTRY METHOD 12/24/2023 3:40 PM EST [facility] Microalb, Ur 56.5(H) 0.0 - 29.0 mg/L LAB CHEMISTRY METHOD 12/24/2023 3:40 PM EST [facility] Microalb/Crea t Ratio 19 <30 mg/g creat LAB CHEMISTRY METHOD 12/24/2023 3:40 PM EST [facility] Urine Urine specimen obtained by clean catch procedure / Unknown Non-blood Collection / Unknown 12/24/2023 12:59 PM EST 12/24/2023 12:59 PM EST us Tony Coombs MD LAB URINE ORDERABLES Final Resu lt Performing Organization Address [facility]/ZIP Co de Phone Number [facility] [address] [place] [address], [place] [phone] * (ABNORMAL) Creatinine (12/24/2023 12:59 PM EST) Creatinine 1.16(H) 0.50 - 1.10 mg/dL LAB CHEMISTRY METHOD 12/24/2023 4:54 PM EST [facility] eGFR 50(L) >=60 mL/min/1. 73m2 LAB CHEMISTRY METHOD 12/24/2023 4:54 PM EST [facility] Comment:Calculation based on the Chronic Kidney Disease Epidemiology Collaboration (CKD-EPI) equation refit without adjustment for race. Blood Venous blood specimen / Unknown Venipuncture / Unknown 12/24/2023 12:59 PM EST 12/24/2023 12:59 PM EST us Tony Coombs MD LAB BLOOD ORDERABLES Final Resu lt Performing Organization Address [facility] Co de Phone Number [facility] [address] [place] [address], [place] [phone] from Last 3 Months or Most Recently Relevant to Health Maintenance Insurance [facility] Care Teams Berry Grower Relationship Specialty Start Date End Date Joselito Almanza MD [address] [place] [address] [address] [place] PCP - General Internal Medicine 12/16/19
== END 2024-10-29 11:51 | disposition home or self-care (01) ==
LOC: HO.PMC 11:19
PROVIDERS: PCP Internal Medicine; Visit Provider Anesthesiology
DX: M47.816 Spondylosis without myelopathy or radiculopathy, lumbar region (principal); M51.362 Other intervertebral disc degeneration, lumbar region with discogenic back pain and lower extremity pain; G89.4 Chronic pain syndrome; M16.12 Unilateral primary osteoarthritis, left hip; M25.512 Pain in left shoulder
CPT/HCPCS: 99213

== ENCOUNTER → 2024-10-29 11:18 | Outpatient (BNVA) | payer MEDICARE, SELFPAY | PROVIDERS: PCP Internal Medicine; Visit Provider Anesthesiology | DX: M47.816 Spondylosis without myelopathy or radiculopathy, lumbar region (principal); M51.362 Other intervertebral disc degeneration, lumbar region with discogenic back pain and lower extremity pain; M16.12 Unilateral primary osteoarthritis, left hip; M25.512 Pain in left shoulder; G89.4 Chronic pain syndrome | CPT/HCPCS: 99212 ==

== ENCOUNTER 2024-11-07 11:49 | Outpatient (REF) | payer MEDICARE, SELFPAY ==
[2024-11-07 13:12] LABS: MANUAL DIFF FLAG NO
[2024-11-07 13:31] LABS: Hematocrit 39.5 % (37.0-47.0); Hemoglobin 13.0 g/dl (12.0-16.0); Imm Gran Abs Auto 0.07 X10*3/uL (0.00-0.03); Imm Gran Pct Auto 1.0 % (0.0-0.4); Lymphocytes Absolute Auto 1.9 X10*3/uL (1.2-4.9); Mean Corpuscular HGB Conc 32.9 g/dl (31.0-35.0); Mean Corpuscular Hemoglobin 26.3 pg (27.0-33.0); Mean Corpuscular Volume 80.0 fL (80.0-98.0); NRBC Abs Auto 0.000 X10*3/uL (0.0-0.012); NRBC Pct Auto 0.0 /100WBC (0.0-0.2); Platelet Count 227 X10*3/uL (160-400); Red Blood Count 4.94 X10*6/uL (4.20-5.50); White Blood Count 6.8 X10*3/uL (4.8-10.8)
[2024-11-07 13:32] LABS: Appearance Urine Cloudy; PH 5.5 (5.0-9.0); Specific Gravity - Urine >= 1.030 (1.005-1.025); UMIC TRIGGER UACC YES
[2024-11-07 13:39] LABS: Total Hemoglobin (HGBA1C) 3376.9178 umol/L
--- OUTSIDE RECORDS SUMMARY | 2024-11-07 13:41 | XMS_ITS | Clinical Summary ---
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 hypertension ([facility] V24, [facility] V28) 04/16/2024 Essential hypertension, benign Overview (04/16/2024): [...] 3:15 PM EST Office Visit Nephrology - [place] [address] [place], [place] [phone] Tony Coombs MD [address] [place] [address] Health Maintenance Due Date Last [...] LAB CHEMISTRY METHOD 12/24/2023 3:40 PM EST [facility] Microalb, Ur 56.5(H) 0.0 - 29.0 mg/L LAB CHEMISTRY METHOD 12/24/2023 3:40 PM EST [facility] Microalb/Crea t Ratio 19 <30 mg/g creat LAB CHEMISTRY METHOD 12/24/2023 3:40 PM EST [facility] Urine Urine specimen obtained by clean catch procedure / Unknown Non-blood Collection / Unknown 12/24/2023 12:59 PM EST 12/24/2023 12:59 PM EST us Tony Coombs MD LAB URINE ORDERABLES Final Resu lt Performing Organization Address [facility]/ZIP Co de Phone Number [facility] [address] [place] [address], [place] [phone] * (ABNORMAL) Creatinine (12/24/2023 12:59 PM EST) Creatinine 1.16(H) 0.50 - 1.10 mg/dL LAB CHEMISTRY METHOD 12/24/2023 4:54 PM EST [facility] eGFR 50(L) >=60 mL/min/1. 73m2 LAB CHEMISTRY METHOD 12/24/2023 4:54 PM EST [facility] Comment:Calculation based on the Chronic Kidney Disease Epidemiology Collaboration (CKD-EPI) equation refit without adjustment for race. Blood Venous blood specimen / Unknown Venipuncture / Unknown 12/24/2023 12:59 PM EST 12/24/2023 12:59 PM EST us Tony Coombs MD LAB BLOOD ORDERABLES Final Resu lt Performing Organization Address [facility] Co de Phone Number [facility] [address] [place] [address], [place] [phone] from Last 3 Months or Most Recently Relevant to Health Maintenance Insurance [facility] Care Teams Final Inspection Supervisor Relationship Specialty Start Date End Date Joselito Almanza MD [address] [place] [address] [address] [place] PCP - General Internal Medicine 12/16/19
--- OUTSIDE RECORDS SUMMARY | 2024-11-07 13:41 | XMS_ITS | Clinical Summary ---
Author Organization [facility] Facility Address [address] [address] Care Team Providers Care Document Management Analyst Name Role Phone Unavailable Primary Care Provider [...]
[2024-11-07 14:24] LABS: Alanine Aminotransferase 19 U/L (0-31); Albumin Level 4.3 g/dL (3.5-5.0); Alkaline Phosphatase 71 U/L (39-117); Anion Gap 11 (12-20); Aspartate Amino Transferase 27 U/L (5-31); Blood Urea Nitrogen 20 mg/dL (9-16); Calcium 9.6 mg/dL (8.4-10.2); Carbon Dioxide 29 mmol/L (22-29); Chloride 105 mmol/L (96-108); Cholesterol 148 mg/dL (<200); Estimated Glomerular Filt Rate 54; HDL Cholesterol 28 mg/dL (>40); Microalbum/Creatinine Ratio Ur 24.1 ug/mg cr (<30); Potassium 4.2 mmol/L (3.3-5.1); Sodium 141 mmol/L (135-145); Total Protein 6.7 g/dL (6.5-8.0); Triglycerides 186 mg/dL (<150)
== END 2024-11-07 11:50 | disposition home or self-care (01) ==
LOC: HO.HMGCLDS 11:49
PROVIDERS: PCP Internal Medicine; Visit Provider Internal Medicine
DX: E11.9 Type 2 diabetes mellitus without complications (principal); D64.9 Anemia, unspecified; E78.00 Pure hypercholesterolemia, unspecified; R30.0 Dysuria
CPT/HCPCS: 36415; 80053; 80061; 81001; 82043; 82570; 83036; 84443; 85025

== ENCOUNTER 2024-11-11 16:16 | Outpatient (AMB) | payer MEDICARE, SELFPAY ==
[2024-11-11 16:28] VITALS: BP 98/72; PULSE 85; O2SAT 96; BMI 26.8
--- NOTE | 2024-11-11 16:28 | MHC.PC.OV ---
Vital Signs 11/11/24 16:28 Height 5 ft 11 in Weight 192 lb BMI 26.8 BP 98/72 Blood Pressure Location Rt brachial Position Sitting Pulse 85 Pulse Source Pulse Oximeter Pulse Oximetry (%) 96 Oxygen Delivery Method Room Air Intake Visit Reasons: 4 mnth f/u - see comments Supervisor [employer] Required: No Accompanied by: Self / Same As Patient Allergies fluticasone (From FLONASE) Adverse Reaction (Intermediate, Verified 11/11/24 22:19) NAUSEA Medication List - Last Reconciled 11/11/24 by Joselito Almanza MD acyclovir 5% 1 appl topical 6XD 7 days amlodipine-benazepril 5-20 mg 1 cap PO DAILY blood sugar diagnostic 1 strip miscellaneous BID budesonide 32 mcg/actuation 2 sprays intranasal QAM cephalexin 500 mg PO Q6H cetirizine 10 mg PO DAILY PRN 90 days cholecalciferol (vitamin D3) 50 mcg PO DAILY insulin glargine (Basaglar KwikPen U-100 Insulin) 50 units (0.5 mL) subcut QPM 90 days ketoconazole 2% topical lovastatin 40 mg PO DAILY metformin 1,000 mg (2 x 500 mg) PO BID metoprolol succinate ER 50 mg PO DAILY omeprazole 20 mg PO QAM oxycodone-acetaminophen 5-325 mg 1 tab PO Q8H PRN 7 days pen needle, diabetic USE DIRECTED sertraline 50 mg PO DAILY 30 days spironolacton-hydrochlorothiaz 25-25 mg 1 tab PO DAILY Tobacco use date assessed: 11/11/24 Fall risk assessment: 1 Fall in past year Last assessed Fall Risk: 11/11/24 Dental Screening Dental Screen Date: 11/11/24 Did you have a dental visit in the last 12 months?: No Did you have a dental problem in the last 6 months where you did not have access to dental care?: No Was dental information given to patient?: Patient has dentist HPI 4 mnth f/u - see comments HPI Details Patient comes in today for her follow up visit States that she feels okay She denies any headaches or dizziness Denies any chest pains, no increased SOB No nausea/vomiting, no abdominal pain No change in bowel habits noted States that her chronic left-sided low back pain and joint pains remain fairly controlled on her current Rx Her joint pains (hip pain) have improved a lot with cortisone injection from Dr. Graham and with physical therapy, which has helped with her low back pain as well She had her follow up labs done a few days ago - to discuss her results [facility] Medical History Allergic rhinitis Seborrheic dermatitis of scalp Overweight (BMI 25.0-29.9) Lumbar degenerative disc disease Vitamin D deficiency GERD without esophagitis Pure hypercholesterolemia Benign essential hypertension Chronic kidney disease (CKD), stage II (mild) Type 2 diabetes mellitus with diabetic chronic kidney disease Surgical History History of hysteroscopy (~11/2005) History of colonoscopy History of hemorrhoidectomy History of tonsillectomy Family History Mother Dementia Emphysema lung Father Emphysema lung Other Family history non-contributory Social History Housing: House Alcohol intake: current Alcohol intake frequency: holidays/special occasions only Alcohol type: wine Patient Tobacco Use Status: Never used Tobacco e-Cigarette/Vaping Use: Never Used Second Hand Smoke Exposure: Yes service: No Current occupational status: retired Cognitive needs: No Hearing needs: No Vision needs: Yes (wear glasses) Questionnaire PHQ-9 Over the last 2 weeks, how often have you been bothered by any of the following problems? 1. Little interest or pleasure in doing things: not at all 2. Feeling down, depressed, or hopeless: not at all 3. Trouble falling or staying asleep, or sleeping too much: not at all 4. Feeling tired or having little energy: not at all 5. Poor appetite or overeating: not at all 6. Feeling bad about yourself - or that you are a failure or have let yourself or your family down: not at all 7. Trouble concentrating on things, such as reading the newspaper or watching television: not at all 8. Moving or speaking so slowly that other people could have noticed. Or the opposite - being so fidgety or restless that you have been moving around a lot more than usual: not at all 9. Thoughts that you would be better off or of hurting yourself in some way: not at all Total score: 0 Depression Screening Interpretation: Negative Depression Screening Done: Yes 99850 - PHQ-9 Billing: Yes Source: Developed by Drs. Michi Pérez, Myranda Harrison, Deonte Bowser and colleagues, with an educational patric from [employer]. Thrive Questionnaire Date Thrive assessed: 11/11/24 I am a: Patient What is your living situation today?: I have a steady place to live Within the past 12 months, did the food you bought not last and you didn't have the money to get more?: Never true Within the past 12 months, did you worry whether your food would run out before you got money to buy more?: Never true Do you have trouble paying for medicines?: No Do you have trouble getting transportation to medical appointments?: No Do you have trouble paying your heating and electricity bill?: No Do you have trouble taking care of your child, family member or friend?: No Do you have trouble with day-to-day activities such as bathing, preparing meals, shopping, managing finances, etc.?: No Are you currently unemployed and looking for a job?: No Are you interested in more education?: No Please select the resources that you would like help with: None Currently or been in a relationship where the following occur: No concerns reported THRIVE Score: 0 AUDIT C Alcohol Use Questionnaire (AUDIT-C) 1. How often do you have a drink containing alcohol?: Never 3. How often do you have six or more drinks on one occasion?: Never Total Score: 0 Score Reviewed/Action Taken: Yes CHANDANA-7 AMB Questionnaire CHANDANA-7 Date CHANDANA - 7 assessed: 07/11/24 Source: Developed by Drs. Michi Pérez, Myranda Harrison, Deonte Bowser and colleagues, with an educational patric from [employer]. Review of Systems Const Denies chills, Denies fatigue, Denies fever(s) and Denies headache(s) ENT Denies dysphagia, Denies dizziness, Denies otalgia, Denies headache(s), Denies neck pain, Denies odynophagia and Denies sore throat Card Denies chest pain, Denies palpitations and Denies dyspnea Resp Denies chest congestion, Denies cough and Denies dyspnea GI Denies abdominal pain, Denies constipation, Denies dysphagia, Denies heartburn, Denies diarrhea, Denies nausea, Denies odynophagia and Denies vomiting Denies difficulty voiding, Denies nocturia, Denies dysuria and Denies urinary urgency Musc Reports back pain (left-sided sciatica ), Reports arthralgias (involving multiple joints but especially over the left hip) and Denies neck pain Skin/Breast Denies rash Neuro Denies dizziness and Denies headache(s) Endo Denies fatigue and Denies palpitations Physical exam (Primary Care) Vital Signs: Last Vital Signs Pulse 85 11/11/24 16:28 BP 98/72 11/11/24 16:28 Pulse Ox 96 11/11/24 16:28 Oxygen Delivery Method Room Air 11/11/24 16:28 BMI result Body Mass Index 26.8 Tobacco/Smoking Status: Tobacco use Status Tobacco use date assessed 11/11/24 11/11/24 16:31 Patient Tobacco Use Status Never used Tobacco 11/11/24 16:31 e-Cigarette/Vaping Use Never Used 11/11/24 16:31 Depression Screening Interpretation: Negative Thrive Assessment: Date of Thrive Assessment Date Thrive assessed 11/11/24 11/11/24 16:31 Currently or been in a relationship where the following occur: No concerns reported Const General: no acute distress and alert HENMT Ears: TM's normal bilaterally and EAC's normal Throat: Yes posterior oropharynx normal and Yes tonsils normal (no TP congestion noted) Neck Neck: Yes supple and No lymphadenopathy Thyroid: Thyroid normal Resp Auscultation: clear to auscultation bilaterally, no rales and no wheezes Cardio Rate: regular rate Rhythm: regular rhythm Heart sounds: no murmurs GI Palpation (GI): Soft to palpation and nontender Auscultation: normal bowel sounds General: Yes no CVA tenderness Back/Spine/Pelvis Back: no CVA tenderness Thoracic/Lumbar Spine: lumbar spinal tenderness Sacroiliac joints: on the left tender to palpation (mild) Skin Rashes: no rashes Extrem General: Yes no clubbing, cyanosis or edema Left lower extremity: hip/thigh Details: tenderness Location: of the hip Results Reviewed Results Reviewed: Laboratory Tests 11/07/24 11:54 WBC 6.8 Hgb 13.0 Hct 39.5 Plt Count 227 Sodium 141 Potassium 4.2 Creatinine 1.00 Estimated GFR 54 Fasting Glucose 110 H Hemoglobin A1c % 7.4 H Calcium 9.6 AST 27 ALT 19 Triglycerides 186 H Cholesterol 148 LDL Cholesterol, Calc 83 HDL Cholesterol 28 L TSH 1.54 Ur Specific [place] >= 1.030 H Urine Blood Large (3+) H Ur Leukocyte Esterase Trace H Microalb/Creat Ratio 24.1 Coding Level of Care Code Est Pt Level 4 (95469) Diagnoses Pure hypercholesterolemia E78.00 Type 2 diabetes mellitus with stage 2 chronic kidney disease, without long-term current use of insulin E11.22; N18.2 Diabetes mellitus mcc insulin use: without mcc use Chronic kidney disease stage: stage 2 (mild) Chronic kidney disease (CKD), stage II (mild) N18.2 Benign essential hypertension I10 GERD without esophagitis K21.9 Degeneration of intervertebral disc of lumbar region with discogenic back pain and lower extremity pain M51.362 Disc-related pain type: discogenic back pain and lower extremity pain Left hip pain M25.552 Vitamin D deficiency E55.9 Overweight (BMI 25.0-29.9) E66.3 Additional Codes PHQ-9 - 00874 - PHQ-9 Billing: Yes ([id number]) Assessment & Plan Assessment & Plan (1) Pure hypercholesterolemia: Code(s): E78.00 - Pure hypercholesterolemia, unspecified Category: Medical Plan: Results of her labs done a few days ago reviewed and discussed with patient Reinforced low cholesterol diet Continue Lovastatin 40 mg QD Will recheck her labs and fasting lipids in 4 months for follow-up (2) Type 2 diabetes mellitus with diabetic chronic kidney disease: Code(s): E11.22 - Type 2 diabetes mellitus with diabetic chronic kidney disease Category: Medical Qualifiers: Diabetes mellitus hotbed lever operator insulin use: without hotbed lever operator use Chronic kidney disease stage: stage 2 (mild) Qualified Code(s): E11.22 - Type 2 diabetes mellitus with diabetic chronic kidney disease; N18.2 - Chronic kidney disease, stage 2 (mild) Plan: Her HgbA1c was at 7.4% on her labs done a few days ago (was previously at 7.3% a few months ago) - goal is < 7.0% Reinforced diabetic diet Continue Metformin 500 mg 2 tablets BID and Basaglar 50 units Q HS Will recheck her HgbA1c and FBS in 4 months for follow up (3) Chronic kidney disease (CKD), stage II (mild): Code(s): N18.2 - Chronic kidney disease, stage 2 (mild) Category: Medical Plan: Stable Reinforced increased oral fluids and she is again reminded to completely avoid taking any NSAIDs Will have her recheck her labs in 4 months for follow up (4) Benign essential hypertension: Code(s): I10 - Essential (primary) hypertension Category: Medical Plan: Reinforced low-sodium diet -? goal is systolic BP of at least 130 to 140 mm or less Continue Amlodipine -Benazepril 5-20 mg QD, Metoprolol ER 50 mg QD and Spironolactone-HCTZ 25-25 QD (5) GERD without esophagitis: Code(s): K21.9 - Gastro-esophageal reflux disease without esophagitis Category: Medical Plan: Dietary restrictions reinforced Continue Omeprazole 20 mg QD (6) Lumbar degenerative disc disease: Code(s): M51.36 - Other intervertebral disc degeneration, lumbar region Category: Medical Qualifiers: Disc-related pain type: discogenic back pain and lower extremity pain Qualified Code(s): M51.362 - Other intervertebral disc degeneration, lumbar region with discogenic back pain and lower extremity pain Plan: Reinforced activity and weight lifting restrictions Continue Oxycodone-Acetaminophen 5-325 mg every 8 hours only as needed Follow up with pain management as scheduled (7) Left hip pain: Code(s): M25.552 - Pain in left hip Category: Medical Plan: Patient was seen by pain management a few months ago and was advised that her left-sided sciatica/radicular symptoms are likely due to her left hip pathology (osteoarthritis) She was sent for physical therapy of her left hip, which she feels has helped a lot She also received cortisone injection into her left hip from pain management a couple of months ago, which she states has helped a lot Follow up with pain management as scheduled (8) Vitamin D deficiency: Code(s): E55.9 - Vitamin D deficiency, unspecified Category: Medical Plan: Continue Vitamin D3 2000 units QD (9) Overweight (BMI 25.0-29.9): Code(s): E66.3 - Overweight Category: Medical Plan: Reinforced diet/exercise as tolerated/lose weight Plan Follow up in 4 months Orders: Orders Complete Blood Count Auto Diff 4 Months D64.9 - Anemia, unspecified Comprehensive [place]. Panel Fast 4 Months E78.00 - Pure hypercholesterolemia, unspecified Lipid Panel 4 Months E78.00 - Pure hypercholesterolemia, unspecified Free T4 (Free Thyroxine) 4 Months E03.9 - Hypothyroidism, unspecified Thyroid Stimulating Hormone 4 Months E03.9 - Hypothyroidism, unspecified Vitamin D 25-OH Total 4 Months E55.9 - Vitamin D deficiency, unspecified Hemoglobin A1c 4 Months E11.9 - Type 2 diabetes mellitus without complications Microalbumin, Random (w Creat) 4 Months E11.9 - Type 2 diabetes mellitus without complications UA CC w/rflx Micro + Cult 4 Months R30.0 - Dysuria Vitamin B12 and Folate 4 Months E53.8 - Deficiency of other specified B group vitamins
--- OUTSIDE RECORDS SUMMARY | 2024-11-11 17:12 | XMS_ITS | Clinical Summary ---
Author Organization [facility] Facility Address [address] [address] Care Team Providers Care Formulator Name Role Phone Unavailable Primary Care Provider [...]
--- OUTSIDE RECORDS SUMMARY | 2024-11-11 17:12 | XMS_ITS | Clinical Summary ---
Author Organization [facility] [address] [place] [address] [place] [id number] Phone Care Team Providers Care Basin Tender Name Role Phone Joselito Almanza MD Primary Care Provider [phone] Medications lovastatin (MEVACOR) 40 mg tablet Take [...] Date CKD stage 3a, GFR 45-59 ml/min ([facility] V24, [facility] V28) 04/16/2024 Type 2 DM with CKD stage 3 a nd hypertension ([facility] V24, [facility] V28) 04/16/2024 Essential hypertension, benign Overview (04/16/2024): DX:Essential hypertension, benign Surgical History Surgery Date Site/Laterality Comments TONSILLECTOMY 1968 PROCEDURE: HISTORICAL TONSILLECTOMY OTHER SURGICAL HISTORY 08/09/04 PROCEDURE: [place] HEMORRHOIDECTOMY NTRNL & XTRNL 1 COLUMN/GROUP COLONOSCOPY 03/06/2001 PROCEDURE: [place] COLONOSCOPY FLX DX W/COLLJ SPEC WHEN PFRMD; COMMENT: Negative. MULTIPLE TOOTH EXTRACTIONS PROCEDURE: HISTORICAL DENTAL EXTRACTION COLONOSCOPY 08/03/2011 PROCEDURE: [place] COLONOSCOPY FLX DX W/COLLJ SPEC WHEN PFRMD; [...] 3:15 PM EST Office Visit Nephrology - [place] [id number] [place], [place] [phone] Tony Coombs MD [address] [place] [address] Health Maintenance Due Date Last [...] LAB CHEMISTRY METHOD 12/24/2023 3:40 PM EST [facility] Microalb, Ur 56.5(H) 0.0 - 29.0 mg/L LAB CHEMISTRY METHOD 12/24/2023 3:40 PM EST [facility] Microalb/Crea t Ratio 19 <30 mg/g creat LAB CHEMISTRY METHOD 12/24/2023 3:40 PM EST [facility] Urine Urine specimen obtained by clean catch procedure / Unknown Non-blood Collection / Unknown 12/24/2023 12:59 PM EST 12/24/2023 12:59 PM EST us Tony Coombs MD LAB URINE ORDERABLES Final Resu lt Performing Organization Address [facility]/ZIP Co de Phone Number [facility] [address] [place] [address], [place] [phone] * (ABNORMAL) Creatinine (12/24/2023 12:59 PM EST) Creatinine 1.16(H) 0.50 - 1.10 mg/dL LAB CHEMISTRY METHOD 12/24/2023 4:54 PM EST [facility] eGFR 50(L) >=60 mL/min/1. 73m2 LAB CHEMISTRY METHOD 12/24/2023 4:54 PM EST [facility] Comment:Calculation based on the Chronic Kidney Disease Epidemiology Collaboration (CKD-EPI) equation refit without adjustment for race. Blood Venous blood specimen / Unknown Venipuncture / Unknown 12/24/2023 12:59 PM EST 12/24/2023 12:59 PM EST us Tony Coombs MD LAB BLOOD ORDERABLES Final Resu lt Performing Organization Address [facility] Co de Phone Number [facility] [address] [place] [address], [place] [phone] from Last 3 Months or Most Recently Relevant to Health Maintenance Insurance [facility] Care Teams Basin Tender Relationship Specialty Start Date End Date Joselito Almanza MD [address] [place] [address] [address] [place] PCP - General Internal Medicine 12/16/19
== END 2024-11-11 17:27 | disposition home or self-care (01) ==
LOC: HO.HMCH 16:17
PROVIDERS: PCP Internal Medicine; Visit Provider Internal Medicine
DX: E78.00 Pure hypercholesterolemia, unspecified (principal); E11.22 Type 2 diabetes mellitus with diabetic chronic kidney disease; N18.2 Chronic kidney disease, stage 2 (mild); I12.9 Hypertensive chronic kidney disease with stage 1 through stage 4 chronic kidney disease, or unspecified chronic kidney disease; K21.9 Gastro-esophageal reflux disease without esophagitis; M51.362 Other intervertebral disc degeneration, lumbar region with discogenic back pain and lower extremity pain; M25.552 Pain in left hip; E55.9 Vitamin D deficiency, unspecified; E66.3 Overweight

== ENCOUNTER → 2024-11-11 16:16 | Outpatient (BNVA) | payer MEDICARE, SELFPAY | PROVIDERS: PCP Internal Medicine; Visit Provider Internal Medicine | DX: E11.22 Type 2 diabetes mellitus with diabetic chronic kidney disease (principal); I12.9 Hypertensive chronic kidney disease with stage 1 through stage 4 chronic kidney disease, or unspecified chronic kidney disease; N18.2 Chronic kidney disease, stage 2 (mild); D63.1 Anemia in chronic kidney disease; E78.00 Pure hypercholesterolemia, unspecified; K21.9 Gastro-esophageal reflux disease without esophagitis; M51.362 Other intervertebral disc degeneration, lumbar region with discogenic back pain and lower extremity pain; M25.552 Pain in left hip; E55.9 Vitamin D deficiency, unspecified; E66.3 Overweight; E03.9 Hypothyroidism, unspecified; R30.0 Dysuria; E53.8 Deficiency of other specified B group vitamins; Z68.26 Body mass index [BMI] 26.0-26.9, adult | CPT/HCPCS: 96127; 99212 ==